=== PATIENT | male | born 1970 | race Caucasian/White ===

== ENCOUNTER 2022-03-24 16:30 | Emergency (ER) | payer OTHER ==
--- OUTSIDE RECORDS SUMMARY | 2022-03-24 16:43 | XMS REPORT | Continuity of Care Document ---
:1970 Author Organization [facility] t Address [address] [place] [address] Care Team Providers Name Role Phone GABBY EDWARDS Primary Care Physician Unavailable Liseth Haney Attending Clinician Unavailable INESSA PEREZ Attending Clinician Unavailable LOIS ASHRAF Attending Clinician Unavailable JANET PRESTON Attending Clinician Unavailable Doctor Unassigned, [facility] [employer] [facility] Attending Clinician Unavailable RICARDO INFANTE Attending Clinician Unavailable LISETH HANEY Attending Clinician Unavailable JOHAN Attending Clinician Unavailable Carl Moss Attending Clinician Unavailable Gabby Burroughs RN Attending Clinician Jenn Childers Attending Clinician Tres Angelo DO Attending Clinician DEBRA LOUIE Hernandez Attending Clinician Unavailable Debra PURDY, Louie Hernandez Attending Clinician Suma ASHRAF, Krupa Attending Clinician Unavailable [place] MORRELL, Natalee Calvert Attending Clinician Unavailable Yola Montanez Attending Clinician Ritchie Pickard MD Attending Clinician Tam Nelson MD Attending Clinician TAM NELSON Attending Clinician Unavailable INESSA PEREZ Admitting Clinician Unavailable RICARDO INFANTE Admitting Clinician Unavailable KAYLEE_T Admitting Clinician Unavailable Ritchie Pickard MD Admitting Clinician RITCHIE PICKARD JR Admitting Clinician Unavailable Payers Payer Name Policy Type Policy Number Effective Date Expiration Date S genesis [facility] [id number] [facility] [id number] 2020 HEALTHCARE 00:00:00 [facility] [id number] [facility] [id number] 2017 [facility]PITAL 00:00:00 Problems Condition Condition Condition Status Onset Resolution Last Treating Co mments Source Name Details Category Date Date Treatment Clinician Date DKA DKA Disease Active 2019-04 [facility] (diabetic (diabetic 1-29 ity [place] 00 Medical [facility] Toe Toe Disease Active [facility] osteomyeli osteomyeli 1-04 it [place] Toe Toe Disease Active [facility] osteomyeli osteomyeli 1-04 it y [place] t[place], left [place], [place] Osteomyeli Osteomyeli Disease Active U nivers tis of tis of 1-02 ity of [place]at[place] Morbid Morbid Disease Active 2016-04 [facility] obesity obesity 2-31 [place] mass index mass index 00 Me dical of of Branch 40.0-49.9 40.0-49.9 Osteomyeli Osteomyeli Disease Active 2016-04 U nivers tis tis 2-31 ity of 00:00: [place] 00 Medical Branch Morbid Morbid Disease Active 2016-04 [facility] obesity obesity 2-31 [place] mass [place] mass index 00 Me dical of of Branch 40.0-49.9 40.0-49.9 Allergies, Adverse Reactions, Alerts Allergy Allergy Status Severity Reaction(s) Onset Inactive Treating Comm ents Source Name Type Date Date Clinician NO KNOWN Drug Active Univers ALLERGIE Class ity of S [facility] Social History Social Habit Start Date Stop Date Quantity Comments Source Exposure to Not sure [facility] SARS-CoV-2 [facility] (event) Branch Alcohol intake 2020-03-13 2020-03-13 Current University of 00:00:00 00:00:00 non-drinker of [facility] alcohol (finding) Branch History SDOH 2020-03-02 2020-03-02 5 University o f Financial 00:00:00 00:00:00 [facility] Tobacco use and 2017-04-03 2017-04-03 Smokeless tobacco Un iversity of exposure 00:00:00 00:00:00 non-user [facility] Sex [birth year] At [birth year] Universit y of 00:00:00 00:00:00 [facility] Smoking Status Start Date Stop Date Source Never smoked tobacco [facility] Medications Ordered Filled Start Stop Current Ordering Indication Dosage Frequency Signature Comments Components Source Medication Medication Date Date Medication? Clinician (SIG) Name Name traMADoL 50 2019-04- No 4647 50mg Take 1 Uni vers mg tablet 2-18 03- tablet by ity of 00:00: 05:59 mouth [place] 00 :00 every 6 Medical (six) Branch hours as needed for Pain (scale 7-10) for up to 7 days. Indication s: acute pain traMADoL 50 2019-04- No 4647 50mg Take 1 Uni vers mg tablet 2-15 12-23 tablet by ity of 00:00: 05:59 mouth [place] 00 :00 every 6 Medical (six) Branch hours as needed for Pain (scale 7-10) for up to 7 days. Indication s: acute pain traMADoL 50 2019-04- No 4647 50mg Take 1 Uni vers mg tablet 2-15 12-23 tablet by ity of 00:00: 05:59 mouth [place] 00 :00 every 6 Medical (six) Branch hours as needed for Pain (scale 7-10) for up to 7 days. Indication s: acute pain traMADoL 50 2019-04- No 4647 50mg Take 1 Uni vers mg tablet 05-19- tablet by ity of 00:00: 05:59 mouth [place] 00 :00 every 6 Medical (six) Branch hours as needed for Pain (scale 7-10) for up to 7 days. Indication s: acute pain traMADoL 50 2019-04- No 4647 50mg Take 1 Uni vers mg tablet 203-26 tablet by ity of 00:00: 05:59 mouth [place] 00 :00 every 6 Medical (six) Branch hours as needed for Pain (scale 7-10) for up to 7 days. Indication s: acute pain traMADoL 50 2019-04 No 4647 50mg Take 1 Uni vers mg tablet 05-19 tablet by ity of 00:00: 05:59 mouth [place] 00 :00 every 6 Medical (six) Branch hours as needed for Pain (scale 7-10) for up to 7 days. Indication s: acute pain insulin 2019-04 Yes 28U 28 Units, Unive rs glargine 2-12 Subcutaneo ity o f (LANTUS 02:00: us, BID, [place] U-100) 00 First dose Medical injection (after Branch 28 Units last modificati on) on Tue03/14/20 at 2000, Until Discontinu ed, Routine multivitami 2019-04 2020- No 1{capsu Take 1 Univers n capsule 2-11 12- le} capsule by ity of 20:03: 00:00 mouth [place] 10 :00 daily. Medical Branch Sliding 2019-04 Yes Subcutaneo Univ ers Scale 2-11 us, TID ity of Insulin - 18:45: MEALS+HS, Adriano as Lispro 00 First dose Medical (HumaLOG) + (after Branch Fsbg last Testing modificati on) on Tue03/14/20 at 1245, Until Discontinu ed, Routine insulin 2019-04 Yes 18U 18 Units, Unive rs lispro 2-11 Subcutaneo ity of (human) 18:45: us, TID [place] (HumaLOG 00 MEALS, Medical U-100) First dose Branch injection (after 18 Units last modificati on) on Tue03/14/20 at 1245, Until Discontinu ed, Routine insulin 2019- 2020- No 38U 38 Units, Univ ers glargine 2-11 12-11 Subcutaneo ity of (LANTUS 02:00: 18:33 us, BID, [place] U-100) 00 :40 First dose Medical injection (after Branch 38 Units last modificati on) on Catherine 03/13/20 at 2000, Until Discontinu ed, Routine amLODIPine 2019- Yes [id number] 5mg Take 1 Univers 5 mg tablet 2-11 tablet by ity of 00:00: mouth [place] 00 daily. Medical Branch vitamin b 2019- Yes [id number] 1{tbl} Take 1 Univers complex-vit 2-11 tablet by ity of meneses 00:00: mouth [place] c-folic 00 daily. Medical acid 0.8 mg Branch tablet pantoprazol 2019- Yes [id number] 40mg Take 1 Univers e 40 mg EC 2-11 tablet by ity of tablet 00:00: mouth [place] 00 daily. Medical Branch sennosides- 2019-04 Yes [id number] 1{tbl} Take 1 Univers docusate 2-11 tablet by ity of sodium 00:00: mouth 2 [place] 8.6-50 mg 00 (two) Medical per tablet times Branch daily. insulin 2019- Yes [id number] Use as Uni vers syringe-nee 2-11 directed ity of dle U-100 1 00:00: [place] ml (INSULIN 00 Medical SYRINGE) 1 Branch mL 29 gauge x 1/2" Syrg insulin 2019- Yes [id number] 28U inject 28 [facility] glargine 2-11 Units ity of 100 unit/mL 00:00: [place] the [place] injection 00 skin 2 Medical (two) Branch times daily. insulin 2019- Yes [id number] 18U inject 18 Univers lispro, 2-11 Units ity of human, 100 00:00: under the [place] unit/mL 00 skin 3 Medical injection (three) Branch times daily with meals. furosemide 2019- Yes [id number] 80mg Take 1 Univers 80 mg 2-11 tablet by ity of tablet 00:00: mouth [place] 00 every Medical morning Branch and evening. blood sugar 2019- Yes [id number] Use as Univers diagnostic 2-11 directed ity o f (CONTOUR 00:00: [place] NEXT TEST 00 Medical STRIPS) Branch strip amLODIPine 2019-04 Yes [id number] 5mg Take 1 Univers 5 mg tablet 2-11 tablet by ity of 00:00: mouth [place] 00 daily. Medical Branch vitamin b 2019-04 Yes [id number] 1{tbl} Take 1 Univers complex-vit 2-11 tablet by ity of meneses 00:00: mouth [place] c-folic 00 daily. Medical acid 0.8 mg Branch tablet pantoprazol 2019-04 Yes [id number] 40mg Take 1 Univers e 40 mg EC 2-11 tablet by ity of tablet 00:00: mouth [place] 00 daily. Medical Branch sennosides- 2019-04 Yes [id number] 1{tbl} Take 1 Univers docusate 2-11 tablet by ity of sodium 00:00: mouth 2 [place] 8.6-50 mg 00 (two) Medical per tablet times Branch daily. insulin 2019-04 Yes [id number] Use as Uni vers syringe-nee 2-11 directed ity of dle U-100 1 00:00: [place] ml (INSULIN 00 Medical SYRINGE) 1 Branch mL 29 gauge x 1/2" Syrg insulin 2019- Yes [id number] 28U inject 28 Univers glargine 2-11 Units ity of 100 unit/mL 00:00: under the [place] injection 00 skin 2 Medical (two) Branch times daily. insulin 2019-04 Yes [id number] 18U inject 18 Univers lispro, 2-11 Units ity of human, 100 00:00: [place] the [place] unit/mL 00 skin 3 Medical injection (three) Branch times daily with meals. furosemide 2019-04 Yes [id number] 80mg Take 1 Univers 80 mg 2-11 tablet by ity of tablet 00:00: mouth [place] 00 every Medical morning Branch and evening. blood sugar 2019-04 Yes [id number] Use as Univers diagnostic 2-11 directed ity o f (CONTOUR 00:00: [place] NEXT TEST 00 Medical STRIPS) Branch strip amLODIPine 2019-04 Yes [id number] 5mg Take 1 Univers 5 mg tablet 2-11 tablet by ity of 00:00: mouth [place] 00 daily. Medical Branch vitamin b 2019-04 Yes [id number] 1{tbl} Take 1 Univers complex-vit 2-11 tablet by ity of meneses 00:00: mouth [place] c-folic 00 daily. Medical acid 0.8 mg Branch tablet pantoprazol 2019-04 Yes [id number] 40mg Take 1 Univers e 40 mg EC 2-11 tablet by ity of tablet 00:00: mouth [place] 00 daily. Medical Branch sennosides- 2019-04 Yes [id number] 1{tbl} Take 1 Univers docusate 2-11 tablet by ity of sodium 00:00: mouth 2 [place] 8.6-50 mg 00 (two) Medical per tablet times Branch daily. insulin 2019-04 Yes [id number] Use as Uni vers syringe-nee 2-11 directed ity of dle U-100 1 00:00: [place] ml (INSULIN 00 Medical SYRINGE) 1 Branch mL 29 gauge x 1/2" Syrg insulin 2019-04 Yes [id number] 28U inject 28 [facility] glargine 2-11 Units ity of 100 unit/mL 00:00: under the [place] injection 00 skin 2 Medical (two) Branch times daily. insulin 2019-04 Yes [id number] 18U inject 18 Univers lispro, 2-11 Units ity of human, 100 00:00: under the [place] unit/mL 00 skin 3 Medical injection (three) Branch times daily with meals. furosemide 2019-04 Yes [id number] 80mg Take 1 Univers 80 mg 2-11 tablet by ity of tablet 00:00: mouth [place] 00 every Medical morning Branch and evening. blood sugar 2019-04 Yes [id number] Use as Univers diagnostic 2-11 directed ity o f (CONTOUR 00:00: [place] NEXT TEST 00 Medical STRIPS) Branch strip amLODIPine 2019-04 Yes [id number] 5mg Take 1 Univers 5 mg tablet 2-11 tablet by ity of 00:00: mouth [place] 00 daily. Medical Branch vitamin b 2019-04 Yes [id number] 1{tbl} Take 1 Univers complex-vit 2-11 tablet by ity of meneses 00:00: mouth [place] c-folic 00 daily. Medical acid 0.8 mg Branch tablet pantoprazol 2019-04 Yes [id number] 40mg Take 1 Univers e 40 mg EC 2-11 tablet by ity of tablet 00:00: mouth [place] 00 daily. Medical Branch sennosides- 2019-04 Yes [id number] 1{tbl} Take 1 Univers docusate 2-11 tablet by ity of sodium 00:00: mouth 2 [place] 8.6-50 mg 00 (two) Medical per tablet times Branch daily. insulin 2019-04 Yes [id number] Use as Uni vers syringe-nee 2-11 directed ity of dle U-100 1 00:00: [place] ml (INSULIN 00 Medical SYRINGE) 1 Branch mL 29 gauge x 1/2" Syrg insulin 2019-04 Yes [id number] 28U inject 28 Univers glargine 2-11 Units ity of 100 unit/mL 00:00: under the [place] injection 00 skin 2 Medical (two) Branch times daily. insulin 2019-04 Yes [id number] 18U inject 18 Univers lispro, 2-11 Units ity of human, 100 00:00: under the [place] unit/mL 00 skin 3 Medical injection (three) Branch times daily with meals. furosemide 2019-04 Yes [id number] 80mg Take 1 Univers 80 mg 2-11 tablet by ity of tablet 00:00: mouth [place] 00 every Medical morning Branch and evening. blood sugar 2019-04 Yes [id number] Use as Univers diagnostic 2-11 directed ity o f (CONTOUR 00:00: [place] NEXT TEST 00 Medical STRIPS) Branch strip amLODIPine 2019-04 Yes [id number] 5mg Take 1 Univers 5 mg tablet 2-11 tablet by ity of 00:00: mouth [place] 00 daily. Medical Branch vitamin b 2019-04 Yes [id number] 1{tbl} Take 1 Univers complex-vit 2-11 tablet by ity of meneses 00:00: mouth [place] c-folic 00 daily. Medical acid 0.8 mg Branch tablet pantoprazol 2019-04 Yes [id number] 40mg Take 1 Univers e 40 mg EC 2-11 tablet by ity of tablet 00:00: mouth [place] 00 daily. Medical Branch sennosides- 2019-04 Yes [id number] 1{tbl} Take 1 Univers docusate 2-11 tablet by ity of sodium 00:00: mouth 2 [place] 8.6-50 mg 00 (two) Medical per tablet times Branch daily. insulin 2019-04 Yes [id number] Use as Uni vers syringe-nee 2-11 directed ity of dle U-100 1 00:00: [place] ml (INSULIN 00 Medical SYRINGE) 1 Branch mL 29 gauge x 1/2" Syrg insulin 2019-04 Yes [id number] 28U inject 28 Univers glargine 2-11 Units ity of 100 unit/mL 00:00: under the [place] injection 00 skin 2 Medical (two) Branch times daily. insulin 2019-04 Yes [id number] 18U inject 18 Univers lispro, 2-11 Units ity of human, 100 00:00: under the [place] unit/mL 00 skin 3 Medical injection (three) Branch times daily with meals. furosemide 2019-04 Yes [id number] 80mg Take 1 Univers 80 mg 2-11 tablet by ity of tablet 00:00: mouth [place] 00 every Medical morning Branch and evening. blood sugar 2019-04 Yes [id number] Use as Univers diagnostic 2-11 directed ity o f (CONTOUR 00:00: [place] NEXT TEST 00 Medical STRIPS) Branch strip amLODIPine 2019-04 Yes [id number] 5mg Take 1 Univers 5 mg tablet 2-11 tablet by ity of 00:00: mouth [place] 00 daily. Medical Branch vitamin b 2019-04 Yes [id number] 1{tbl} Take 1 Univers complex-vit 2-11 tablet by ity of meneses 00:00: mouth [place] c-folic 00 daily. Medical acid 0.8 mg Branch tablet pantoprazol 2019-04 Yes [id number] 40mg Take 1 Univers e 40 mg EC 2-11 tablet by ity of tablet 00:00: mouth [place] 00 daily. Medical Branch sennosides- 2019-04 Yes [id number] 1{tbl} Take 1 Univers docusate 2-11 tablet by ity of sodium 00:00: mouth 2 [place] 8.6-50 mg 00 (two) Medical per tablet times Branch daily. insulin 2019-04 Yes [id number] Use as Uni vers syringe-nee 2-11 directed ity of dle U-100 1 00:00: [place] ml (INSULIN 00 Medical SYRINGE) 1 Branch mL 29 gauge x 1/2" Syrg insulin 2019-04 Yes [id number] 28U inject 28 Univers glargine 2-11 Units ity of 100 unit/mL 00:00: under the [place] injection 00 skin 2 Medical (two) Branch times daily. insulin 2019-04 Yes [id number] 18U inject 18 Univers lispro, 2-11 Units ity of human, 100 00:00: under the [place] unit/mL 00 skin 3 Medical injection (three) Branch times daily with meals. furosemide 2019-04 Yes [id number] 80mg Take 1 Univers 80 mg 2-11 tablet by ity of tablet 00:00: mouth [place] 00 every Medical morning Branch and evening. blood sugar 2019-04 Yes [id number] Use as Univers diagnostic 2-11 directed ity o f (CONTOUR 00:00: [place] NEXT TEST 00 Medical STRIPS) Branch strip amLODIPine 2019-04 Yes [id number] 5mg Take 1 Univers 5 mg tablet 2-11 tablet by ity of 00:00: mouth [place] 00 daily. Medical Branch vitamin b 2019-04 Yes [id number] 1{tbl} Take 1 Univers complex-vit 2-11 tablet by ity of meneses 00:00: mouth [place] c-folic 00 daily. Medical acid 0.8 mg Branch tablet pantoprazol 2019-04 Yes [id number] 40mg Take 1 Univers e 40 mg EC 2-11 tablet by ity of tablet 00:00: mouth [place] 00 daily. Medical Branch sennosides- 2019-04 Yes [id number] 1{tbl} Take 1 Univers docusate 2-11 tablet by ity of sodium 00:00: mouth 2 [place] 8.6-50 mg 00 (two) Medical per tablet times Branch daily. insulin 2019-04 Yes [id number] Use as Uni vers syringe-nee 2-11 directed ity of dle U-100 1 00:00: [place] ml (INSULIN 00 Medical SYRINGE) 1 Branch mL 29 gauge x 1/2" Syrg insulin 2019- Yes [id number] 28U inject 28 Univers glargine 2-11 Units ity of 100 unit/mL 00:00: under the [place] injection 00 skin 2 Medical (two) Branch times daily. insulin 2019- Yes [id number] 18U inject 18 Univers lispro, 2-11 Units ity of human, 100 00:00: under the [place] unit/mL 00 skin 3 Medical injection (three) Branch times daily with meals. furosemide 2019-04 Yes [id number] 80mg Take 1 Univers 80 mg 2-11 tablet by ity of tablet 00:00: mouth [place] 00 every Medical morning Branch and evening. blood sugar 2019-04 Yes [id number] Use as Univers diagnostic 2-11 directed ity o f (CONTOUR 00:00: [place] NEXT TEST 00 Medical STRIPS) Branch strip amLODIPine 2019-04 Yes [id number] 5mg Take 1 Univers 5 mg tablet 2-11 tablet by ity of 00:00: mouth [place] 00 daily. Medical Branch vitamin b 2019-04 Yes [id number] 1{tbl} Take 1 Univers complex-vit 2-11 tablet by ity of meneses 00:00: mouth [place] c-folic 00 daily. Medical acid 0.8 mg Branch tablet pantoprazol 2019-04 Yes [id number] 40mg Take 1 Univers e 40 mg EC 2-11 tablet by ity of tablet 00:00: mouth [place] 00 daily. Medical Branch sennosides- 2019-04 Yes [id number] 1{tbl} Take 1 Univers docusate 2-11 tablet by ity of sodium 00:00: mouth 2 [place] 8.6-50 mg 00 (two) Medical per tablet times Branch daily. insulin 2019-04 Yes [id number] Use as Uni vers syringe-nee 2-11 directed ity of dle U-100 1 00:00: [place] ml (INSULIN 00 Medical SYRINGE) 1 Branch mL 29 gauge x 1/2" Syrg insulin 2019- Yes [id number] 28U inject 28 Univers glargine 2-11 Units ity of 100 unit/mL 00:00: under the [place] injection 00 skin 2 Medical (two) Branch times daily. insulin 2019-04 Yes [id number] 18U inject 18 Univers lispro, 2-11 Units ity of human, 100 00:00: under the [place] unit/mL 00 skin 3 Medical injection (three) Branch times daily with meals. furosemide 2019-04 Yes [id number] 80mg Take 1 Univers 80 mg 2-11 tablet by ity of tablet 00:00: mouth [place] 00 every Medical morning Branch and evening. blood sugar 2019-04 Yes [id number] Use as Univers diagnostic 2-11 directed ity o f (CONTOUR 00:00: [place] NEXT TEST 00 Medical STRIPS) Branch strip amLODIPine 2019-04 Yes [id number] 5mg Take 1 Univers 5 mg tablet 2-11 tablet by ity of 00:00: mouth [place] 00 daily. Medical Branch vitamin b 2019-04 Yes [id number] 1{tbl} Take 1 Univers complex-vit 2-11 tablet by ity of meneses 00:00: mouth [place] c-folic 00 daily. Medical acid 0.8 mg Branch tablet pantoprazol 2019-04 Yes [id number] 40mg Take 1 Univers e 40 mg EC 2-11 tablet by ity of tablet 00:00: mouth [place] 00 daily. Medical Branch sennosides- 2019-04 Yes [id number] 1{tbl} Take 1 Univers docusate 2-11 tablet by ity of sodium 00:00: mouth 2 [place] 8.6-50 mg 00 (two) Medical per tablet times Branch daily. insulin 2019-04 Yes [id number] Use as Uni vers syringe-nee 2-11 directed ity of dle U-100 1 00:00: [place] ml (INSULIN 00 Medical SYRINGE) 1 Branch mL 29 gauge x 1/2" Syrg insulin 2019-04 Yes [id number] 28U inject 28 [facility] glargine 2-11 Units ity of 100 unit/mL 00:00: under the [place] injection 00 skin 2 Medical (two) Branch times daily. insulin 2019-04 Yes [id number] 18U inject 18 Univers lispro, 2-11 Units ity of human, 100 00:00: under the [place] unit/mL 00 skin 3 Medical injection (three) Branch times daily with meals. amLODIPine 2019-04 Yes [id number] 5mg Take 1 Univers 5 mg tablet 2-11 tablet by ity of 00:00: mouth [place] 00 daily. Medical Branch vitamin b 2019-04 Yes [id number] 1{tbl} Take 1 Univers complex-vit 2-11 tablet by ity of meneses 00:00: mouth [place] c-folic 00 daily. Medical acid 0.8 mg Branch tablet pantoprazol 2019-04 Yes [id number] 40mg Take 1 Univers e 40 mg EC 2-11 tablet by ity of tablet 00:00: mouth [place] 00 daily. Medical Branch sennosides- 2019-04 Yes [id number] 1{tbl} Take 1 Univers docusate 2-11 tablet by ity of sodium 00:00: mouth 2 [place] 8.6-50 mg 00 (two) Medical per tablet times Branch daily. insulin 2019-04 Yes [id number] Use as Uni vers syringe-nee 2-11 directed ity of dle U-100 1 00:00: [place] ml (INSULIN 00 Medical SYRINGE) 1 Branch mL 29 gauge x 1/2" Syrg insulin 2019- Yes [id number] 28U inject 28 Univers glargine 2-11 Units ity of 100 unit/mL 00:00: under the [place] injection 00 skin 2 Medical (two) Branch times daily. insulin 2019-04 Yes [id number] 18U inject 18 Univers lispro, 2-11 Units ity of human, 100 00:00: under the [place] unit/mL 00 skin 3 Medical injection (three) Branch times daily with meals. furosemide 2019-04 Yes [id number] 80mg Take 1 Univers 80 mg 2-11 tablet by ity of tablet 00:00: mouth [place] 00 every Medical morning Branch and evening. blood sugar 2019-04 Yes [id number] Use as Univers diagnostic 2-11 directed ity o f (CONTOUR 00:00: [place] NEXT TEST 00 Medical STRIPS) Branch strip furosemide 2019-04 Yes [id number] 80mg Take 1 Univers 80 mg 2-11 tablet by ity of tablet 00:00: mouth [place] 00 every Medical morning Branch and evening. amLODIPine 2019-04 Yes [id number] 5mg Take 1 Univers 5 mg tablet 2-11 tablet by ity of 00:00: mouth [place] 00 daily. Medical Branch vitamin b 2019-04 Yes [id number] 1{tbl} Take 1 Univers complex-vit 2-11 tablet by ity of meneses 00:00: mouth [place] c-folic 00 daily. Medical acid 0.8 mg Branch tablet pantoprazol 2019-04 Yes [id number] 40mg Take 1 Univers e 40 mg EC 2-11 tablet by ity of tablet 00:00: mouth [place] 00 daily. Medical Branch sennosides- 2019-04 Yes [id number] 1{tbl} Take 1 Univers docusate 2-11 tablet by ity of sodium 00:00: mouth 2 [place] 8.6-50 mg 00 (two) Medical per tablet times Branch daily. insulin 2019-04 Yes [id number] Use as Uni vers syringe-nee 2-11 directed ity of dle U-100 1 00:00: [place] ml (INSULIN 00 Medical SYRINGE) 1 Branch mL 29 gauge x 1/2" Syrg insulin 2019-04 Yes [id number] 28U inject 28 [facility] glargine 2-11 Units ity of 100 unit/mL 00:00: under the [place] injection 00 skin 2 Medical (two) Branch times daily. insulin 2019-04 Yes [id number] 18U inject 18 Univers lispro, 2-11 Units ity of human, 100 00:00: under the [place] unit/mL 00 skin 3 Medical injection (three) Branch times daily with meals. blood sugar 2019-04 Yes [id number] Use as Univers diagnostic 2-11 directed ity o f (CONTOUR 00:00: [place] NEXT TEST 00 Medical STRIPS) Branch strip furosemide 2019-04 Yes [id number] 80mg Take 1 Univers 80 mg 2-11 tablet by ity of tablet 00:00: mouth [place] 00 every Medical morning Branch and evening. blood sugar 2019-04 Yes [id number] Use as Univers diagnostic 2-11 directed ity o f (CONTOUR 00:00: [place] NEXT TEST 00 Medical STRIPS) Branch strip amLODIPine 2019-04 Yes [id number] 5mg Take 1 Univers 5 mg tablet 2-11 tablet by ity of 00:00: mouth [place] 00 daily. Medical Branch vitamin b 2019-04 Yes [id number] 1{tbl} Take 1 Univers complex-vit 2-11 tablet by ity of meneses 00:00: mouth [place] c-folic 00 daily. Medical acid 0.8 mg Branch tablet pantoprazol 2019-04 Yes [id number] 40mg Take 1 Univers e 40 mg EC 2-11 tablet by ity of tablet 00:00: mouth [place] 00 daily. Medical Branch sennosides- 2019-04 Yes [id number] 1{tbl} Take 1 Univers docusate 2-11 tablet by ity of sodium 00:00: mouth 2 [place] 8.6-50 mg 00 (two) Medical per tablet times Branch daily. insulin 2019-04 Yes [id number] Use as Uni vers syringe-nee 2-11 directed ity of dle U-100 1 00:00: [place] ml (INSULIN 00 Medical SYRINGE) 1 Branch mL 29 gauge x 1/2" Syrg insulin 2019- Yes [id number] 28U inject 28 Univers glargine 2-11 Units ity of 100 unit/mL 00:00: under the [place] injection 00 skin 2 Medical (two) Branch times daily. insulin 2019- Yes [id number] 18U inject 18 Univers lispro, 2-11 Units ity of human, 100 00:00: under the [place] unit/mL 00 skin 3 Medical injection (three) Branch times daily with meals. furosemide 2019-04 Yes [id number] 80mg Take 1 Univers 80 mg 2-11 tablet by ity of tablet 00:00: mouth [place] 00 every Medical morning Branch and evening. blood sugar 2019-04 Yes [id number] Use as Univers diagnostic 2-11 directed ity o f (CONTOUR 00:00: [place] NEXT TEST 00 Medical STRIPS) Branch strip amLODIPine 2019-04 Yes [id number] 5mg Take 1 Univers 5 mg tablet 2-11 tablet by ity of 00:00: mouth [place] 00 daily. Medical Branch vitamin b 2019-04 Yes [id number] 1{tbl} Take 1 Univers complex-vit 2-11 tablet by ity of meneses 00:00: mouth [place] c-folic 00 daily. Medical acid 0.8 mg Branch tablet pantoprazol 2019-04 Yes [id number] 40mg Take 1 [facility] e 40 mg EC 2-11 tablet by [facility] tablet 00:00: mouth [place] 00 daily. Medical Branch sennosides- 2019-04 Yes [id number] 1{tbl} Take 1 [facility] docusate 2-11 tablet by [facility] of sodium 00:00: mouth 2 [place] 8.6-50 mg 00 (two) Medical per tablet times Branch daily. insulin 2019-04 Yes [id number] Use as [facility] vers syringe-nee 2-11 directed [facility] of dle U-100 1 00:00: [place] ml (INSULIN 00 Medical SYRINGE) 1 Branch mL 29 gauge x 1/2" Syrg insulin 2019- Yes [id number] 28U inject 28 [facility] glargine 2-11 Units [facility] of 100 unit/mL 00:00: under the [place] injection 00 skin 2 Medical (two) Branch times daily. insulin 2019- Yes [id number] 18U inject 18 [facility] lispro, 2-11 Units [facility] of human, 100 00:00: under the [place] unit/mL 00 skin 3 Medical injection (three) Branch times daily with meals. furosemide 2019-04 Yes [id number] 80mg Take 1 [facility] 80 mg 2-11 tablet by [facility] of tablet 00:00: mouth [place] 00 every Medical morning Branch and evening. blood sugar 2019-04 Yes [id number] Use as [facility] diagnostic 2-11 directed ity o f (CONTOUR 00:00: [place] NEXT TEST 00 Medical STRIPS) Branch strip amLODIPine 2019-04 Yes [id number] 5mg Take 1 [facility] 5 mg tablet 2-11 tablet by [facility] of 00:00: mouth [place] 00 daily. Medical Branch vitamin b 2019-04 Yes [id number] 1{tbl} Take 1 [facility] complex-vit 2-11 tablet by [facility] meneses 00:00: mouth [place] c-folic 00 daily. Medical acid 0.8 mg Branch tablet pantoprazol 2019-04 Yes [id number] 40mg Take 1 [facility] e 40 mg EC 2-11 tablet by [facility] of tablet 00:00: mouth [place] 00 daily. Medical [facility] sennosides- 2019-04 Yes [id number] 1{tbl} Take 1 [facility] docusate 2-11 tablet by [facility] of sodium 00:00: mouth 2 [place] 8.6-50 mg 00 (two) Medical per tablet times Branch daily. insulin 2019-04 Yes [id number] Use as [facility] vers syringe-nee 2-11 directed it[facility] of dle U-100 1 00:00: [place] ml (INSULIN 00 Medical SYRINGE) 1 Branch mL 29 gauge x 1/2" Syrg insulin 2019-04 Yes [id number] 28U inject 28 [facility] glargine 2-11 Units [facility] of 100 unit/mL 00:00: under the [place] injection 00 skin 2 Medical (two) Branch times daily. insulin 2019-04 Yes [id number] 18U inject 18 [facility] lispro, 2-11 Units [facility] of human, 100 00:00: under the [place] unit/mL 00 skin 3 Medical injection (three) Branch times daily with meals. furosemide 2019-04 Yes [id number] 80mg Take 1 [facility] 80 mg 2-11 tablet by [facility] of tablet 00:00: mouth [place] 00 every Medical morning Branch and evening. blood sugar 2019-04 Yes [id number] Use as [facility] diagnostic 2-11 directed [facility] o f (CONTOUR 00:00: [place] NEXT TEST 00 Medical STRIPS) Branch strip amLODIPine 2019-04 Yes [id number] 5mg Take 1 [facility] 5 mg tablet 2-11 tablet by [facility] of 00:00: mouth [place] 00 daily. Medical Branch vitamin b 2019-04 Yes [id number] 1{tbl} Take 1 [facility] complex-vit 2-11 tablet by [facility]es 00:00: mouth [place] c-folic 00 daily. Medical acid 0.8 mg Branch tablet pantoprazol 2019-04 Yes [id number] 40mg Take 1 [facility] e 40 mg EC 2-11 tablet by [facility] of tablet 00:00: mouth [place] 00 daily. Medical [facility] sennosides- 2019-04 Yes [id number] 1{tbl} Take 1 [facility] docusate 2-11 tablet by [facility] of sodium 00:00: mouth 2 [place] 8.6-50 mg 00 (two) Medical per tablet times Branch daily. insulin 2019-04 Yes [id number] Use as [facility] vers syringe-nee 2-11 directed it[facility] of dle U-100 1 00:00: [place] ml (INSULIN 00 Medical SYRINGE) 1 Branch mL 29 gauge x 1/2" Syrg insulin 2019-04 Yes [id number] 28U inject 28 [facility] glargine 2-11 Units [facility] of 100 unit/mL 00:00: under the [place] injection 00 skin 2 Medical (two) Branch times daily. insulin 2019-04 Yes [id number] 18U inject 18 [facility] lispro, 2-11 Units [facility] of human, 100 00:00: under the [place] unit/mL 00 skin 3 Medical injection (three) Branch times daily with meals. furosemide 2019-04 Yes [id number] 80mg Take 1 [facility] 80 mg 2-11 tablet by [facility] of tablet 00:00: mouth [place] 00 every Medical morning Branch and evening. blood sugar 2019-04 Yes [id number] Use as [facility] diagnostic 2-11 directed [facility] o f (CONTOUR 00:00: [place] NEXT TEST 00 Medical STRIPS) Branch strip amLODIPine 2019-04 Yes [id number] 5mg Take 1 [facility] 5 mg tablet 2-11 tablet by [facility] of 00:00: mouth [place] 00 daily. Medical Branch vitamin b 2019- Yes [id number] 1{tbl} Take 1 [facility] complex-vit 2-11 tablet by [facility] meneses 00:00: mouth [place] c-folic 00 daily. Medical acid 0.8 mg Branch tablet pantoprazol 2019-04 Yes [id number] 40mg Take 1 [facility] e 40 mg EC 2-11 tablet by [facility] of tablet 00:00: mouth [place] 00 daily. Medical [facility] sennosides- 2019-04 Yes [id number] 1{tbl} Take 1 [facility] docusate 2-11 tablet by [facility] of sodium 00:00: mouth 2 [place] 8.6-50 mg 00 (two) Medical per tablet times Branch daily. insulin 2019-04 Yes [id number] Use as [facility] vers syringe-nee 2-11 directed [facility] of dle U-100 1 00:00: [place] ml (INSULIN 00 Medical SYRINGE) 1 Branch mL 29 gauge x 1/2" Syrg insulin 2019-04 Yes [id number] 28U inject 28 [facility] glargine 2-11 Units [facility] of 100 unit/mL 00:00: under the [place] injection 00 skin 2 Medical (two) Branch times daily. insulin 2019-04 Yes [id number] 18U inject 18 [facility] lispro, 2-11 Units [facility] of human, 100 00:00: under the [place] unit/mL 00 skin 3 Medical injection (three) Branch times daily with meals. furosemide 2019-04 Yes [id number] 80mg Take 1 [facility] 80 mg 2-11 tablet by [facility] of tablet 00:00: mouth [place] 00 every Medical morning Branch and evening. blood sugar 2019-04 Yes [id number] Use as [facility] diagnostic 2-11 directed [facility] o f (CONTOUR 00:00: [place] NEXT TEST 00 Medical STRIPS) Branch strip amLODIPine 2019-04 Yes [id number] 5mg Take 1 [facility] 5 mg tablet 2-11 tablet by [facility] of 00:00: mouth [place] 00 daily. Medical Branch vitamin b 2019-04 Yes [id number] 1{tbl} Take 1 [facility] complex-vit 2-11 tablet by [facility] meneses 00:00: mouth [place] c-folic 00 daily. Medical acid 0.8 mg Branch tablet pantoprazol 2019-04 Yes [id number] 40mg Take 1 [facility] e 40 mg EC 2-11 tablet by [facility] of tablet 00:00: mouth [place] 00 daily. Medical Branch sennosides- 2019-04 Yes [id number] 1{tbl} Take 1 [facility] docusate 2-11 tablet by [facility] of sodium 00:00: mouth 2 [place] 8.6-50 mg 00 (two) Medical per tablet times Branch daily. insulin 2019-04 Yes [id number] Use as [facility] vers syringe-nee 2-11 directed [facility] of dle U-100 1 00:00: [place] ml (INSULIN 00 Medical SYRINGE) 1 Branch mL 29 gauge x 1/2" Syrg insulin 2019- Yes [id number] 28U inject 28 [facility] glargine 2-11 Units [facility] of 100 unit/mL 00:00: under the [place] injection 00 skin 2 Medical (two) Branch times daily. insulin 2019-04 Yes [id number] 18U inject 18 [facility] lispro, 2-11 Units [facility] of human, 100 00:00: under the [place] unit/mL 00 skin 3 Medical injection (three) Branch times daily with meals. furosemide 2019-04 Yes [id number] 80mg Take 1 [facility] 80 mg 2-11 tablet by [facility] of tablet 00:00: mouth [place] 00 every Medical morning Branch and evening. blood sugar 2019-04 Yes [id number] Use as [facility] diagnostic 2-11 directed [facility] o f (CONTOUR 00:00: [place] NEXT TEST 00 Medical STRIPS) Branch strip amLODIPine 2019-04 Yes [id number] 5mg Take 1 [facility] 5 mg tablet 2-11 tablet by [facility] of 00:00: mouth [place] 00 daily. Medical Branch vitamin b 2019-04 Yes [id number] 1{tbl} Take 1 [facility] complex-vit 2-11 tablet by [facility]eses 00:00: mouth [place] c-folic 00 daily. Medical acid 0.8 mg Branch tablet pantoprazol 2019-04 Yes [id number] 40mg Take 1 [facility] e 40 mg EC 2-11 tablet by [facility] of tablet 00:00: mouth [place] 00 daily. Medical Branch sennosides- 2019-04 Yes [id number] 1{tbl} Take 1 [facility] docusate 2-11 tablet by [facility] of sodium 00:00: mouth 2 [place] 8.6-50 mg 00 (two) Medical per tablet times Branch daily. insulin 2019-04 Yes [id number] Use as [facility] vers syringe-nee 2-11 directed [facility] of dle U-100 1 00:00: [place] ml (INSULIN 00 Medical SYRINGE) 1 Branch mL 29 gauge x 1/2" Syrg insulin 2019-04 Yes [id number] 28U inject 28 [facility] glargine 2-11 Units [facility] of 100 unit/mL 00:00: under the [place] injection 00 skin 2 Medical (two) Branch times daily. insulin 2019-04 Yes [id number] 18U inject 18 [facility] lispro, 2-11 Units [facility] of human, 100 00:00: under the [place] unit/mL 00 skin 3 Medical injection (three) Branch times daily with meals. furosemide 2019-04 Yes [id number] 80mg Take 1 [facility] 80 mg 2-11 tablet by [facility] of tablet 00:00: mouth [place] 00 every Medical morning Branch and evening. blood sugar 2019-04 Yes [id number] Use as [facility] diagnostic 2-11 directed [facility] o f (CONTOUR 00:00: [place] NEXT TEST 00 Medical STRIPS) Branch strip amLODIPine 2019-04 Yes [id number] 5mg Take 1 [facility] 5 mg tablet 2-11 tablet by [facility] of 00:00: mouth [place] 00 daily. Medical Branch vitamin b 2019-04 Yes [id number] 1{tbl} Take 1 [facility] complex-vit 2-11 tablet by [facility] meneses 00:00: mouth [place] c-folic 00 daily. Medical acid 0.8 mg Branch tablet pantoprazol 2019-04 Yes [id number] 40mg Take 1 [facility] e 40 mg EC 2-11 tablet by [facility] of tablet 00:00: mouth [place] 00 daily. Medical Branch sennosides- 2019-04 Yes [id number] 1{tbl} Take 1 [facility] docusate 2-11 tablet by [facility] of sodium 00:00: mouth 2 [place] 8.6-50 mg 00 (two) Medical per tablet times Branch daily. insulin 2019-04 Yes [id number] Use as [facility] vers syringe-nee 2-11 directed ity of dle U-100 1 00:00: [place] ml (INSULIN 00 Medical SYRINGE) 1 Branch mL 29 gauge x 1/2" Syrg insulin 2019- Yes [id number] 28U inject 28 [facility] glargine 2-11 Units [facility] of 100 unit/mL 00:00: under the [place] injection 00 skin 2 Medical (two) Branch times daily. insulin 2019-04 Yes [id number] 18U inject 18 [facility] lispro, 2-11 Units [facility] of human, 100 00:00: under the [place] unit/mL 00 skin 3 Medical injection (three) Branch times daily with meals. furosemide 2019-04 Yes [id number] 80mg Take 1 [facility] 80 mg 2-11 tablet by [facility] of tablet 00:00: mouth [place] 00 every Medical morning Branch and evening. blood sugar 2019-04 Yes [id number] Use as [facility] diagnostic 2-11 directed it[facility] o f (CONTOUR 00:00: [place] NEXT TEST 00 Medical STRIPS) Branch strip amLODIPine 2019-04 Yes [id number] 5mg Take 1 [facility] 5 mg tablet 2-11 tablet by it[facility] of 00:00: mouth [place] 00 daily. Medical Branch vitamin b 2019-04 Yes [id number] 1{tbl} Take 1 [facility] complex-vit 2-11 tablet by [facility] of meneses 00:00: mouth [place] c-folic 00 daily. Medical acid 0.8 mg Branch tablet pantoprazol 2019-04 Yes [id number] 40mg Take 1 [facility] e 40 mg EC 2-11 tablet by [facility] of tablet 00:00: mouth [place] 00 daily. Medical Branch sennosides- 2019-04 Yes [id number] 1{tbl} Take 1 [facility] docusate 2-11 tablet by [facility] of sodium 00:00: mouth 2 [place] 8.6-50 mg 00 (two) Medical per tablet times Branch daily. insulin 2019-04 Yes [id number] Use as [facility] vers syringe-nee 2-11 directed ity of dle U-100 1 00:00: [place] ml (INSULIN 00 Medical SYRINGE) 1 Branch mL 29 gauge x 1/2" Syrg insulin 2019-04 Yes [id number] 28U inject 28 [facility] glargine 2-11 Units [facility] of 100 unit/mL 00:00: under the [place] injection 00 skin 2 Medical (two) Branch times daily. insulin 2019-04 Yes [id number] 18U inject 18 [facility] lispro, 2-11 Units [facility] of human, 100 00:00: under the [place] unit/mL 00 skin 3 Medical injection (three) Branch times daily with meals. furosemide 2019-04 Yes [id number] 80mg Take 1 [facility] 80 mg 2-11 tablet by [facility] of tablet 00:00: mouth [place] 00 every Medical morning Branch and evening. blood sugar 2019-04 Yes [id number] Use as [facility] diagnostic 2-11 directed it[facility] o f (CONTOUR 00:00: [place] NEXT TEST 00 Medical STRIPS) Branch strip amLODIPine 2019-04 Yes [id number] 5mg Take 1 [facility] 5 mg tablet 2-11 tablet by it[facility] of 00:00: mouth [place] 00 daily. Medical Branch vitamin b 2019-04 Yes [id number] 1{tbl} Take 1 [facility] complex-vit 2-11 tablet by [facility] of meneses 00:00: mouth [place] c-folic 00 daily. Medical acid 0.8 mg Branch tablet pantoprazol 2019- Yes [id number] 40mg Take 1 [facility] e 40 mg EC 2-11 tablet by [facility] of tablet 00:00: mouth [place] 00 daily. Medical Branch sennosides- 2019-04 Yes [id number] 1{tbl} Take 1 [facility] docusate 2-11 tablet by [facility] of sodium 00:00: mouth 2 [place] 8.6-50 mg 00 (two) Medical per tablet times Branch daily. insulin 2019- Yes [id number] Use as [facility] vers syringe-nee 2-11 directed ity of dle U-100 1 00:00: [place] ml (INSULIN 00 Medical SYRINGE) 1 Branch mL 29 gauge x 1/2" Syrg insulin 2019- Yes [id number] 28U inject 28 [facility] glargine 2-11 Units [facility] of 100 unit/mL 00:00: under the [place] injection 00 skin 2 Medical (two) Branch times daily. insulin 2019-04 Yes [id number] 18U inject 18 [facility] lispro, 2-11 Units it[facility] of human, 100 00:00: under the [place] unit/mL 00 skin 3 Medical injection (three) Branch times daily with meals. furosemide 2019-04 Yes [id number] 80mg Take 1 [facility] 80 mg 2-11 tablet by [facility] of tablet 00:00: mouth [place] 00 every Medical morning Branch and evening. blood sugar 2019-04 Yes [id number] Use as [facility] diagnostic 2-11 directed ity o f (CONTOUR 00:00: [place] NEXT TEST 00 Medical STRIPS) Branch strip amLODIPine 2019- Yes [id number] 5mg Take 1 [facility] 5 mg tablet 2-11 tablet by ity of 00:00: mouth [place] 00 daily. Medical Branch vitamin b 2019- Yes [id number] 1{tbl} Take 1 [facility] complex-vit 2-11 tablet by [facility] of meneses 00:00: mouth [place] c-folic 00 daily. Medical acid 0.8 mg Branch tablet pantoprazol 2019- Yes [id number] 40mg Take 1 [facility] e 40 mg EC 2-11 tablet by [facility] of tablet 00:00: mouth [place] 00 daily. Medical Branch sennosides- 2019-04 Yes [id number] 1{tbl} Take 1 [facility] docusate 2-11 tablet by [facility]y of sodium 00:00: mouth 2 [place] 8.6-50 mg 00 (two) Medical per tablet times Branch daily. insulin 2019-04 Yes [id number] Use as [facility] vers syringe-nee 2-11 directed ity of dle U-100 1 00:00: [place] ml (INSULIN 00 Medical SYRINGE) 1 Branch mL 29 gauge x 1/2" Syrg insulin 2019-04 Yes [id number] 28U inject 28 [facility] glargine 2-11 Units it[facility] of 100 unit/mL 00:00: under the [place] injection 00 skin 2 Medical (two) Branch times daily. insulin 2019-04 Yes [id number] 18U inject 18 [facility] lispro, 2-11 Units it[facility] of human, 100 00:00: under the [place] unit/mL 00 skin 3 Medical injection (three) Branch times daily with meals. furosemide 2019-04 Yes [id number] 80mg Take 1 [facility] 80 mg 2-11 tablet by [facility] of tablet 00:00: mouth [place] 00 every Medical morning Branch and evening. blood sugar 2019-04 Yes [id number] Use as [facility] diagnostic 2-11 directed ity o f (CONTOUR 00:00: [place] NEXT TEST 00 Medical STRIPS) Branch strip amLODIPine 2019-04 Yes [id number] 5mg Take 1 [facility] 5 mg tablet 2-11 tablet by ity of 00:00: mouth [place] 00 daily. Medical Branch vitamin b 2019-04 Yes [id number] 1{tbl} Take 1 [facility] complex-vit 2-11 tablet by [facility] of meneses 00:00: mouth [place] c-folic 00 daily. Medical acid 0.8 mg Branch tablet pantoprazol 2019-04 Yes [id number] 40mg Take 1 [facility] e 40 mg EC 2-11 tablet by [facility] of tablet 00:00: mouth [place] 00 daily. Medical Branch sennosides- 2019-04 Yes [id number] 1{tbl} Take 1 [facility] docusate 2-11 tablet by ity of sodium 00:00: mouth 2 [place] 8.6-50 mg 00 (two) Medical per tablet times Branch daily. insulin 2019-04 Yes [id number] Use as [facility] vers syringe-nee 2-11 directed ity of dle U-100 1 00:00: [place] ml (INSULIN 00 Medical SYRINGE) 1 Branch mL 29 gauge x 1/2" Syrg insulin 2019- Yes [id number] 28U inject 28 [facility] glargine 2-11 Units ity of 100 unit/mL 00:00: under the [place] injection 00 skin 2 Medical (two) Branch times daily. insulin 2019-04 Yes [id number] 18U inject 18 [facility] lispro, 2-11 Units it[facility] of human, 100 00:00: under the [place] unit/mL 00 skin 3 Medical injection (three) Branch times daily with meals. furosemide 2019-04 Yes [id number] 80mg Take 1 [facility] 80 mg 2-11 tablet by [facility] of tablet 00:00: mouth [place] 00 every Medical morning Branch and evening. blood sugar 2019-04 Yes [id number] Use as [facility] diagnostic 2-11 directed ity o f (CONTOUR 00:00: [place] NEXT TEST 00 Medical STRIPS) Branch strip amLODIPine 2019-04 Yes [id number] 5mg Take 1 [facility] 5 mg tablet 2-11 tablet by ity of 00:00: mouth [place] 00 daily. Medical Branch vitamin b 2019-04 Yes [id number] 1{tbl} Take 1 [facility] complex-vit 2-11 tablet by [facility] of [facility]eses 00:00: mouth [place] c-folic 00 daily. Medical acid 0.8 mg Branch tablet pantoprazol 2019-04 Yes [id number] 40mg Take 1 [facility] e 40 mg EC 2-11 tablet by [facility] of tablet 00:00: mouth [place] 00 daily. Medical Branch sennosides- 2019-04 Yes [id number] 1{tbl} Take 1 [facility] docusate 2-11 tablet by [facility]y of sodium 00:00: mouth 2 [place] 8.6-50 mg 00 (two) Medical per tablet times Branch daily. insulin 2019-04 Yes [id number] Use as [facility] vers syringe-nee 2-11 directed ity of dle U-100 1 00:00: [place] ml (INSULIN 00 Medical SYRINGE) 1 Branch mL 29 gauge x 1/2" Syrg insulin 2019- Yes [id number] 28U inject 28 [facility] glargine 2-11 Units ity of 100 unit/mL 00:00: under the [place] injection 00 skin 2 Medical (two) Branch times daily. insulin 2019-04 Yes [id number] 18U inject 18 [facility] lispro, 2-11 Units it[facility] of human, 100 00:00: under the [place] unit/mL 00 skin 3 Medical injection (three) Branch times daily with meals. furosemide 2019-04 Yes [id number] 80mg Take 1 [facility] 80 mg 2-11 tablet by [facility] of tablet 00:00: mouth [place] 00 every Medical morning Branch and evening. blood sugar 2019-04 Yes [id number] Use as [facility] diagnostic 2-11 directed ity o f (CONTOUR 00:00: [place] NEXT TEST 00 Medical STRIPS) Branch strip amLODIPine 2019-04 Yes [id number] 5mg Take 1 [facility] 5 mg tablet 2-11 tablet by [facility]y of 00:00: mouth [place] 00 daily. Medical Branch vitamin b 2019-04 Yes [id number] 1{tbl} Take 1 [facility] complex-vit 2-11 tablet by [facility] of [facility]eses 00:00: mouth [place] c-folic 00 daily. Medical acid 0.8 mg Branch tablet pantoprazol 2019-04 Yes [id number] 40mg Take 1 [facility] e 40 mg EC 2-11 tablet by [facility] of tablet 00:00: mouth [place] 00 daily. Medical Branch sennosides- 2019-04 Yes [id number] 1{tbl} Take 1 [facility] docusate 2-11 tablet by [facility]y of sodium 00:00: mouth 2 [place] 8.6-50 mg 00 (two) Medical per tablet times Branch daily. insulin 2019-04 Yes [id number] Use as [facility] vers syringe-nee 2-11 directed ity of dle U-100 1 00:00: [place] ml (INSULIN 00 Medical SYRINGE) 1 Branch mL 29 gauge x 1/2" Syrg insulin 2019-04 Yes [id number] 28U inject 28 [facility] glargine 2-11 Units [facility]y of 100 unit/mL 00:00: under the [place] injection 00 skin 2 Medical (two) Branch times daily. insulin 2019-04 Yes [id number] 18U inject 18 [facility] lispro, 2-11 Units [facility] of human, 100 00:00: under the [place] unit/mL 00 skin 3 Medical injection (three) Branch times daily with meals. furosemide 2019-04 Yes [id number] 80mg Take 1 [facility] 80 mg 2-11 tablet by [facility] of tablet 00:00: mouth [place] 00 every Medical morning Branch and evening. blood sugar 2019-04 Yes [id number] Use as [facility] diagnostic 2-11 directed ity o f (CONTOUR 00:00: [place] NEXT TEST 00 Medical STRIPS) Branch strip amLODIPine 2019-04 Yes [id number] 5mg Take 1 [facility] 5 mg tablet 2-11 tablet by ity of 00:00: mouth [place] 00 daily. Medical Branch vitamin b 2019-04 Yes [id number] 1{tbl} Take 1 [facility] complex-vit 2-11 tablet by [facility] of [facility]es 00:00: mouth [place] c-folic 00 daily. Medical acid 0.8 mg Branch tablet pantoprazol 2019-04 Yes [id number] 40mg Take 1 [facility] e 40 mg EC 2-11 tablet by [facility] of tablet 00:00: mouth [place] 00 daily. Medical Branch sennosides- 2019-04 Yes [id number] 1{tbl} Take 1 [facility] docusate 2-11 tablet by [facility] of sodium 00:00: mouth 2 [place] 8.6-50 mg 00 (two) Medical per tablet times Branch daily. insulin 2019-04 Yes [id number] Use as [facility] vers syringe-nee 2-11 directed [facility]y of dle U-100 1 00:00: [place] ml (INSULIN 00 Medical SYRINGE) 1 Branch mL 29 gauge x 1/2" Syrg insulin 2019-04 Yes [id number] 28U inject 28 [facility] glargine 2-11 Units [facility] of 100 unit/mL 00:00: under the [place] injection 00 skin 2 Medical (two) Branch times daily. insulin 2019-04 Yes [id number] 18U inject 18 [facility] lispro, 2-11 Units it[facility] of human, 100 00:00: under the [place] unit/mL 00 skin 3 Medical injection (three) Branch times daily with meals. furosemide 2019-04 Yes [id number] 80mg Take 1 [facility] 80 mg 2-11 tablet by [facility] of tablet 00:00: mouth [place] 00 every Medical morning Branch and evening. blood sugar 2019-04 Yes [id number] Use as [facility] diagnostic 2-11 directed [facility]y o f (CONTOUR 00:00: [place] NEXT TEST 00 Medical STRIPS) Branch strip amLODIPine 2019-04 Yes [id number] 5mg Take 1 [facility] 5 mg tablet 2-11 tablet by [facility]y of 00:00: mouth [place] 00 daily. Medical Branch vitamin b 2019-04 Yes [id number] 1{tbl} Take 1 [facility] complex-vit 2-11 tablet by [facility] of [facility]eses 00:00: mouth [place] c-folic 00 daily. Medical acid 0.8 mg Branch tablet pantoprazol 2019- Yes [id number] 40mg Take 1 [facility] e 40 mg EC 2-11 tablet by [facility] of tablet 00:00: mouth [place] 00 daily. Medical Branch sennosides- 2019-04 Yes [id number] 1{tbl} Take 1 [facility] docusate 2-11 tablet by ity of sodium 00:00: mouth 2 [place] 8.6-50 mg 00 (two) Medical per tablet times Branch daily. insulin 2019- Yes [id number] Use as [facility] vers syringe-nee 2-11 directed ity of dle U-100 1 00:00: [place] ml (INSULIN 00 Medical SYRINGE) 1 Branch mL 29 gauge x 1/2" Syrg insulin 2019- Yes [id number] 28U inject 28 [facility] glargine 2-11 Units ity of 100 unit/mL 00:00: under the [place] injection 00 skin 2 Medical (two) Branch times daily. insulin 2019-04 Yes [id number] 18U inject 18 [facility] lispro, 2-11 Units ity of human, 100 00:00: under the [place] unit/mL 00 skin 3 Medical injection (three) Branch times daily with meals. furosemide 2019- Yes [id number] 80mg Take 1 [facility] 80 mg 2-11 tablet by [facility] of tablet 00:00: mouth [place] 00 every Medical morning Branch and evening. blood sugar 2019-04 Yes [id number] Use as [facility] diagnostic 2-11 directed ity o f (CONTOUR 00:00: [place] NEXT TEST 00 Medical STRIPS) Branch strip amLODIPine 2019-04 Yes [id number] 5mg Take 1 [facility] 5 mg tablet 2-11 tablet by [facility]y of 00:00: mouth [place] 00 daily. Medical Branch vitamin b 2019- Yes [id number] 1{tbl} Take 1 [facility] complex-vit 2-11 tablet by [facility] of [facility]eses 00:00: mouth [place] c-folic 00 daily. Medical acid 0.8 mg Branch tablet pantoprazol 2019-04 Yes [id number] 40mg Take 1 [facility] e 40 mg EC 2-11 tablet by [facility] of tablet 00:00: mouth [place] 00 daily. Medical Branch sennosides- 2019-04 Yes [id number] 1{tbl} Take 1 [facility] docusate 2-11 tablet by [facility]y of sodium 00:00: mouth 2 [place] 8.6-50 mg 00 (two) Medical per tablet times Branch daily. insulin 2019-04 Yes [id number] Use as [facility] vers syringe-nee 2-11 directed ity of dle U-100 1 00:00: [place] ml (INSULIN 00 Medical SYRINGE) 1 Branch mL 29 gauge x 1/2" Syrg insulin 2019-04 Yes [id number] 28U inject 28 [facility] glargine 2-11 Units ity of 100 unit/mL 00:00: under the [place] injection 00 skin 2 Medical (two) Branch times daily. insulin 2019-04 Yes [id number] 18U inject 18 [facility] lispro, 2-11 Units ity of human, 100 00:00: under the [place] unit/mL 00 skin 3 Medical injection (three) Branch times daily with meals. furosemide 2019-04 Yes [id number] 80mg Take 1 [facility] 80 mg 2-11 tablet by [facility] of tablet 00:00: mouth [place] 00 every Medical morning Branch and evening. blood sugar 2019-04 Yes [id number] Use as [facility] diagnostic 2-11 directed ity o f (CONTOUR 00:00: [place] NEXT TEST 00 Medical STRIPS) Branch strip amLODIPine 2019-04 Yes [id number] 5mg Take 1 [facility] 5 mg tablet 2-11 tablet by ity of 00:00: mouth [place] 00 daily. Medical Branch vitamin b 2019-04 Yes [id number] 1{tbl} Take 1 [facility] complex-vit 2-11 tablet by [facility] of [facility]eses 00:00: mouth [place] c-folic 00 daily. Medical acid 0.8 mg Branch tablet pantoprazol 2019-04 Yes [id number] 40mg Take 1 [facility] e 40 mg EC 2-11 tablet by [facility]y of tablet 00:00: mouth [place] 00 daily. Medical Branch sennosides- 2019- Yes [id number] 1{tbl} Take 1 [facility] docusate 2-11 tablet by [facility]y of sodium 00:00: mouth 2 [place] 8.6-50 mg 00 (two) Medical per tablet times Branch daily. insulin 2019-04 Yes [id number] Use as [facility] vers syringe-nee 2-11 directed ity of dle U-100 1 00:00: [place] ml (INSULIN 00 Medical SYRINGE) 1 Branch mL 29 gauge x 1/2" Syrg insulin 2019- Yes [id number] 28U inject 28 [facility] glargine 2-11 Units ity of 100 unit/mL 00:00: under the [place] injection 00 skin 2 Medical (two) Branch times daily. insulin 2019-04 Yes [id number] 18U inject 18 [facility] lispro, 2-11 Units ity of human, 100 00:00: under the [place] unit/mL 00 skin 3 Medical injection (three) Branch times daily with meals. furosemide 2019-04 Yes [id number] 80mg Take 1 [facility] 80 mg 2-11 tablet by [facility] of tablet 00:00: mouth [place] 00 every Medical morning Branch and evening. blood sugar 2019-04 Yes [id number] Use as [facility] diagnostic 2-11 directed ity o f (CONTOUR 00:00: [place] NEXT TEST 00 Medical STRIPS) Branch strip amLODIPine 2019-04 Yes [id number] 5mg Take 1 [facility] 5 mg tablet 2-11 tablet by [facility] of 00:00: mouth [place] 00 daily. Medical Branch vitamin b 2019-04 Yes [id number] 1{tbl} Take 1 [facility] complex-vit 2-11 tablet by [facility] 00:00: mouth [place] c-folic 00 daily. Medical acid 0.8 mg Branch tablet pantoprazol 2019-04 Yes [id number] 40mg Take 1 [facility] e 40 mg EC 2-11 tablet by [facility] of tablet 00:00: mouth [place] 00 daily. Medical Branch sennosides- 2019-04 Yes [id number] 1{tbl} Take 1 [facility] docusate 2-11 tablet by [facility] of sodium 00:00: mouth 2 [place] 8.6-50 mg 00 (two) Medical per tablet times Branch daily. insulin 2019-04 Yes [id number] Use as [facility] vers syringe-nee 2-11 directed [facility] of dle U-100 1 00:00: [place] ml (INSULIN 00 Medical SYRINGE) 1 Branch mL 29 gauge x 1/2" Syrg insulin 2019-04 Yes [id number] 28U inject 28 [facility] glargine 2-11 Units [facility] of 100 unit/mL 00:00: under the [place] injection 00 skin 2 Medical (two) Branch times daily. insulin 2019-04 Yes [id number] 18U inject 18 [facility] lispro, 2-11 Units [facility] of human, 100 00:00: under the [place] unit/mL 00 skin 3 Medical injection (three) Branch times daily with meals. furosemide 2019-04 Yes [id number] 80mg Take 1 [facility] 80 mg 2-11 tablet by [facility] of tablet 00:00: mouth [place] 00 every Medical morning Branch and evening. blood sugar 2019-04 Yes [id number] Use as [facility] diagnostic 2-11 directed ity o f (CONTOUR 00:00: [place] NEXT TEST 00 Medical STRIPS) Branch strip amLODIPine 2019-04 Yes [id number] 5mg Take 1 [facility] 5 mg tablet 2-11 tablet by [facility] of 00:00: mouth [place] 00 daily. Medical Branch vitamin b 2019-04 Yes [id number] 1{tbl} Take 1 [facility] complex-vit 2-11 tablet by [facility] 00:00: mouth [place] c-folic 00 daily. Medical acid 0.8 mg Branch tablet pantoprazol 2019-04 Yes [id number] 40mg Take 1 [facility] e 40 mg EC 2-11 tablet by [facility] of tablet 00:00: mouth [place] 00 daily. Medical Branch sennosides- 2019-04 Yes [id number] 1{tbl} Take 1 [facility] docusate 2-11 tablet by [facility] of sodium 00:00: mouth 2 [place] 8.6-50 mg 00 (two) Medical per tablet times Branch daily. insulin 2019-04 Yes [id number] Use as [facility] vers syringe-nee 2-11 directed ity of dle U-100 1 00:00: [place] ml (INSULIN 00 Medical SYRINGE) 1 Branch mL 29 gauge x 1/2" Syrg insulin 2019-04 Yes [id number] 28U inject 28 [facility] glargine 2-11 Units [facility] of 100 unit/mL 00:00: under the [place] injection 00 skin 2 Medical (two) Branch times daily. insulin 2019-04 Yes [id number] 18U inject 18 [facility] lispro, 2-11 Units [facility] of human, 100 00:00: under the [place] unit/mL 00 skin 3 Medical injection (three) Branch times daily with meals. furosemide 2019-04 Yes [id number] 80mg Take 1 [facility] 80 mg 2-11 tablet by [facility] of tablet 00:00: mouth [place] 00 every Medical morning Branch and evening. blood sugar 2019-04 Yes [id number] Use as [facility] diagnostic 2-11 directed it[facility] o f (CONTOUR 00:00: [place] NEXT TEST 00 Medical STRIPS) Branch strip amLODIPine 2019-04 Yes [id number] 5mg Take 1 [facility] 5 mg tablet 2-11 tablet by [facility] of 00:00: mouth [place] 00 daily. Medical Branch vitamin b 2019-04 Yes [id number] 1{tbl} Take 1 [facility] complex-vit 2-11 tablet by [facility] [place] 00:00: mouth [place] c-folic 00 daily. Medical acid 0.8 mg Branch tablet pantoprazol 2019-04 Yes [id number] 40mg Take 1 [facility] e 40 mg EC 2-11 tablet by [facility] of tablet 00:00: mouth [place] 00 daily. Medical Branch sennosides- 2019-04 Yes [id number] 1{tbl} Take 1 [facility] docusate 2-11 tablet by [facility] of sodium 00:00: mouth 2 [place] 8.6-50 mg 00 (two) Medical per tablet times Branch daily. insulin 2019-04 Yes [id number] Use as [facility] vers syringe-nee 2-11 directed ity of dle U-100 1 00:00: [place] ml (INSULIN 00 Medical SYRINGE) 1 Branch mL 29 gauge x 1/2" Syrg insulin 2019-04 Yes [id number] 28U inject 28 [facility] glargine 2-11 Units [facility] of 100 unit/mL 00:00: under the [place] injection 00 skin 2 Medical (two) Branch times daily. insulin 2019-04 Yes [id number] 18U inject 18 [facility] lispro, 2-11 Units [facility] of human, 100 00:00: under the [place] unit/mL 00 skin 3 Medical injection (three) Branch times daily with meals. furosemide 2019-04 Yes [id number] 80mg Take 1 [facility] 80 mg 2-11 tablet by [facility] of tablet 00:00: mouth [place] 00 every Medical morning Branch and evening. blood sugar 2019-04 Yes [id number] Use as [facility] diagnostic 2-11 directed it[facility] o f (CONTOUR 00:00: [place] NEXT TEST 00 Medical STRIPS) Branch strip amLODIPine 2019-04 Yes [id number] 5mg Take 1 [facility] 5 mg tablet 2-11 tablet by [facility] of 00:00: mouth [place] 00 daily. Medical Branch vitamin b 2019-04 Yes [id number] 1{tbl} Take 1 [facility] complex-vit 2-11 tablet by [facility] [place] 00:00: mouth [place] c-folic 00 daily. Medical acid 0.8 mg Branch tablet pantoprazol 2019- Yes [id number] 40mg Take 1 [facility] e 40 mg EC 2-11 tablet by [facility] of tablet 00:00: mouth [place] 00 daily. Medical Branch sennosides- 2019-04 Yes [id number] 1{tbl} Take 1 [facility] docusate 2-11 tablet by [facility] of sodium 00:00: mouth 2 [place] 8.6-50 mg 00 (two) Medical per tablet times Branch daily. insulin 2019-04 Yes [id number] Use as [facility] vers syringe-nee 2-11 directed ity of dle U-100 1 00:00: [place] ml (INSULIN 00 Medical SYRINGE) 1 Branch mL 29 gauge x 1/2" Syrg insulin 2019- Yes [id number] 28U inject 28 [facility] glargine 2-11 Units [facility] of 100 unit/mL 00:00: under the [place] injection 00 skin 2 Medical (two) Branch times daily. insulin 2019-04 Yes [id number] 18U inject 18 [facility] lispro, 2-11 Units [facility] of human, 100 00:00: under the [place] unit/mL 00 skin 3 Medical injection (three) Branch times daily with meals. furosemide 2019- Yes [id number] 80mg Take 1 [facility] 80 mg 2-11 tablet by [facility] of tablet 00:00: mouth [place] 00 every Medical morning Branch and evening. blood sugar 2019-04 Yes [id number] Use as [facility] diagnostic 2-11 directed it[facility] o f (CONTOUR 00:00: [place] NEXT TEST 00 Medical STRIPS) Branch strip amLODIPine 2019-04 Yes [id number] 5mg Take 1 [facility] 5 mg tablet 2-11 tablet by [facility] of 00:00: mouth [place] 00 daily. Medical Branch vitamin b 2019- Yes [id number] 1{tbl} Take 1 [facility] complex-vit 2-11 tablet by [facility] [place] 00:00: mouth [place] c-folic 00 daily. Medical acid 0.8 mg Branch tablet pantoprazol 2019-04 Yes [id number] 40mg Take 1 [facility] e 40 mg EC 2-11 tablet by [facility] of tablet 00:00: mouth [place] 00 daily. Medical Branch sennosides- 2019-04 Yes [id number] 1{tbl} Take 1 [facility] docusate 2-11 tablet by [facility] of sodium 00:00: mouth 2 [place] 8.6-50 mg 00 (two) Medical per tablet times Branch daily. insulin 2019-04 Yes [id number] Use as [facility] vers syringe-nee 2-11 directed ity of dle U-100 1 00:00: [place] ml (INSULIN 00 Medical SYRINGE) 1 Branch mL 29 gauge x 1/2" Syrg insulin 2019-04 Yes [id number] 28U inject 28 [facility] glargine 2-11 Units [facility] of 100 unit/mL 00:00: under the [place] injection 00 skin 2 Medical (two) Branch times daily. insulin 2019-04 Yes [id number] 18U inject 18 [facility] lispro, 2-11 Units [facility] of human, 100 00:00: under the [place] unit/mL 00 skin 3 Medical injection (three) Branch times daily with meals. furosemide 2019-04 Yes [id number] 80mg Take 1 [facility] 80 mg 2-11 tablet by [facility] of tablet 00:00: mouth [place] 00 every Medical morning Branch and evening. blood sugar 2019-04 Yes [id number] Use as [facility] diagnostic 2-11 directed it[facility] o f (CONTOUR 00:00: [place] NEXT TEST 00 Medical STRIPS) Branch strip amLODIPine 2019-04 Yes [id number] 5mg Take 1 [facility] 5 mg tablet 2-11 tablet by [facility] of 00:00: mouth [place] 00 daily. Medical Branch vitamin b 2019-04 Yes [id number] 1{tbl} Take 1 [facility] complex-vit 2-11 tablet by [facility] [place] 00:00: mouth [place] c-folic 00 daily. Medical acid 0.8 mg Branch tablet pantoprazol 2019-04 Yes [id number] 40mg Take 1 [facility] e 40 mg EC 2-11 tablet by [facility] of tablet 00:00: mouth [place] 00 daily. Medical Branch sennosides- 2019-04 Yes [id number] 1{tbl} Take 1 [facility] docusate 2-11 tablet by [facility]y of sodium 00:00: mouth 2 [place] 8.6-50 mg 00 (two) Medical per tablet times Branch daily. insulin 2019-04 Yes [id number] Use as [facility] vers syringe-nee 2-11 directed ity of dle U-100 1 00:00: [place] ml (INSULIN 00 Medical SYRINGE) 1 Branch mL 29 gauge x 1/2" Syrg insulin 2019-04 Yes [id number] 28U inject 28 [facility] glargine 2-11 Units [facility] of 100 unit/mL 00:00: under the [place] injection 00 skin 2 Medical (two) Branch times daily. insulin 2019-04 Yes [id number] 18U inject 18 [facility] lispro, 2-11 Units [facility] of human, 100 00:00: under the [place] unit/mL 00 skin 3 Medical injection (three) Branch times daily with meals. furosemide 2019-04 Yes [id number] 80mg Take 1 [facility] 80 mg 2-11 tablet by [facility] of tablet 00:00: mouth [place] 00 every Medical morning Branch and evening. blood sugar 2019-04 Yes [id number] Use as [facility] diagnostic 2-11 directed ity o f (CONTOUR 00:00: [place] NEXT TEST 00 Medical STRIPS) Branch strip amLODIPine 2019-04 Yes [id number] 5mg Take 1 [facility] 5 mg tablet 2-11 tablet by [facility] of 00:00: mouth [place] 00 daily. Medical Branch vitamin b 2019-04 Yes [id number] 1{tbl} Take 1 [facility] complex-vit 2-11 tablet by [facility] [place] 00:00: mouth [place] c-folic 00 daily. Medical acid 0.8 mg Branch tablet pantoprazol 2019-04 Yes [id number] 40mg Take 1 [facility] e 40 mg EC 2-11 tablet by [facility] of tablet 00:00: mouth [place] 00 daily. Medical Branch sennosides- 2019-04 Yes [id number] 1{tbl} Take 1 [facility] docusate 2-11 tablet by ity of sodium 00:00: mouth 2 [place] 8.6-50 mg 00 (two) Medical per tablet times Branch daily. insulin 2019-04 Yes [id number] Use as [facility] vers syringe-nee 2-11 directed ity of dle U-100 1 00:00: [place] ml (INSULIN 00 Medical SYRINGE) 1 Branch mL 29 gauge x 1/2" Syrg insulin 2019-04 Yes [id number] 28U inject 28 [facility] glargine 2-11 Units it[facility] of 100 unit/mL 00:00: under the [place] injection 00 skin 2 Medical (two) Branch times daily. insulin 2019-04 Yes [id number] 18U inject 18 [facility] lispro, 2-11 Units it[facility] of human, 100 00:00: under the [place] unit/mL 00 skin 3 Medical injection (three) Branch times daily with meals. furosemide 2019-04 Yes [id number] 80mg Take 1 [facility] 80 mg 2-11 tablet by [facility] of tablet 00:00: mouth [place] 00 every Medical morning Branch and evening. blood sugar 2019-04 Yes [id number] Use as [facility] diagnostic 2-11 directed ity o f (CONTOUR 00:00: [place] NEXT TEST 00 Medical STRIPS) Branch strip amLODIPine 2019-04 Yes [id number] 5mg Take 1 [facility] 5 mg tablet 2-11 tablet by [facility] of 00:00: mouth [place] 00 daily. Medical Branch vitamin b 2019-04 Yes [id number] 1{tbl} Take 1 [facility] complex-vit 2-11 tablet by [facility] [place] 00:00: mouth [place] c-folic 00 daily. Medical acid 0.8 mg Branch tablet pantoprazol 2019-04 Yes [id number] 40mg Take 1 [facility] e 40 mg EC 2-11 tablet by [facility] of tablet 00:00: mouth [place] 00 daily. Medical Branch sennosides- 2019-04 Yes [id number] 1{tbl} Take 1 [facility] docusate 2-11 tablet by ity of sodium 00:00: mouth 2 [place] 8.6-50 mg 00 (two) Medical per tablet times Branch daily. insulin 2019-04 Yes [id number] Use as [facility] vers syringe-nee 2-11 directed ity of dle U-100 1 00:00: [place] ml (INSULIN 00 Medical SYRINGE) 1 Branch mL 29 gauge x 1/2" Syrg insulin 2019- Yes [id number] 28U inject 28 [facility] glargine 2-11 Units it[facility] of 100 unit/mL 00:00: under the [place] injection 00 skin 2 Medical (two) Branch times daily. insulin 2019-04 Yes [id number] 18U inject 18 [facility] lispro, 2-11 Units [facility] of human, 100 00:00: under the [place] unit/mL 00 skin 3 Medical injection (three) Branch times daily with meals. furosemide 2019-04 Yes [id number] 80mg Take 1 [facility] 80 mg 2-11 tablet by [facility] of tablet 00:00: mouth [place] 00 every Medical morning Branch and evening. blood sugar 2019-04 Yes [id number] Use as [facility] diagnostic 2-11 directed ity o f (CONTOUR 00:00: [place] NEXT TEST 00 Medical STRIPS) Branch strip amLODIPine 2019-04 Yes [id number] 5mg Take 1 [facility] 5 mg tablet 2-11 tablet by [facility] of 00:00: mouth [place] 00 daily. Medical Branch vitamin b 2019-04 Yes [id number] 1{tbl} Take 1 [facility] complex-vit 2-11 tablet by [facility] [place] 00:00: mouth [place] c-folic 00 daily. Medical acid 0.8 mg Branch tablet pantoprazol 2019-04 Yes [id number] 40mg Take 1 [facility] e 40 mg EC 2-11 tablet by [facility] of tablet 00:00: mouth [place] 00 daily. Medical Branch sennosides- 2019-04 Yes [id number] 1{tbl} Take 1 [facility] docusate 2-11 tablet by ity of sodium 00:00: mouth 2 [place] 8.6-50 mg 00 (two) Medical per tablet times Branch daily. insulin 2019-04 Yes [id number] Use as [facility] vers syringe-nee 2-11 directed ity of dle U-100 1 00:00: [place] ml (INSULIN 00 Medical SYRINGE) 1 Branch mL 29 gauge x 1/2" Syrg insulin 2019-04 Yes [id number] 28U inject 28 [facility] glargine 2-11 Units ity of 100 unit/mL 00:00: under the [place] injection 00 skin 2 Medical (two) Branch times daily. insulin 2019-04 Yes [id number] 18U inject 18 [facility] lispro, 2-11 Units it[facility] of human, 100 00:00: under the [place] unit/mL 00 skin 3 Medical injection (three) Branch times daily with meals. furosemide 2019-04 Yes [id number] 80mg Take 1 [facility] 80 mg 2-11 tablet by [facility] of tablet 00:00: mouth [place] 00 every Medical morning Branch and evening. blood sugar 2019-04 Yes [id number] Use as [facility] diagnostic 2-11 directed ity o f (CONTOUR 00:00: [place] NEXT TEST 00 Medical STRIPS) Branch strip amLODIPine 2019-04 Yes [id number] 5mg Take 1 [facility] 5 mg tablet 2-11 tablet by [facility] of 00:00: mouth [place] 00 daily. Medical Branch vitamin b 2019-04 Yes [id number] 1{tbl} Take 1 [facility] complex-vit 2-11 tablet by [facility] [place] 00:00: mouth [place] c-folic 00 daily. Medical acid 0.8 mg Branch tablet pantoprazol 2019-04 Yes [id number] 40mg Take 1 [facility] e 40 mg EC 2-11 tablet by [facility] of tablet 00:00: mouth [place] 00 daily. Medical Branch sennosides- 2019-04 Yes [id number] 1{tbl} Take 1 [facility] docusate 2-11 tablet by ity of sodium 00:00: mouth 2 [place] 8.6-50 mg 00 (two) Medical per tablet times Branch daily. insulin 2019-04 Yes [id number] Use as [facility] vers syringe-nee 2-11 directed ity of dle U-100 1 00:00: [place] ml (INSULIN 00 Medical SYRINGE) 1 Branch mL 29 gauge x 1/2" Syrg insulin 2019-04 Yes [id number] 28U inject 28 [facility] glargine 2-11 Units ity of 100 unit/mL 00:00: under the [place] injection 00 skin 2 Medical (two) Branch times daily. insulin 2019-04 Yes [id number] 18U inject 18 [facility] lispro, 2-11 Units ity of human, 100 00:00: under the [place] unit/mL 00 skin 3 Medical injection (three) Branch times daily with meals. furosemide 2019-04 Yes [id number] 80mg Take 1 [facility] 80 mg 2-11 tablet by [facility] of tablet 00:00: mouth [place] 00 every Medical morning Branch and evening. blood sugar 2019-04 Yes [id number] Use as [facility] diagnostic 2-11 directed ity o f (CONTOUR 00:00: [place] NEXT TEST 00 Medical STRIPS) Branch strip amLODIPine 2019-04 Yes [id number] 5mg Take 1 [facility] 5 mg tablet 2-11 tablet by [facility] of 00:00: mouth [place] 00 daily. Medical Branch vitamin b 2019- Yes [id number] 1{tbl} Take 1 [facility] complex-vit 2-11 tablet by [facility] [place] 00:00: mouth [place] c-folic 00 daily. Medical acid 0.8 mg Branch tablet pantoprazol 2019-04 Yes [id number] 40mg Take 1 [facility] e 40 mg EC 2-11 tablet by ity of tablet 00:00: mouth [place] 00 daily. Medical Branch sennosides- 2019-04 Yes [id number] 1{tbl} Take 1 [facility] docusate 2-11 tablet by ity of sodium 00:00: mouth 2 [place] 8.6-50 mg 00 (two) Medical per tablet times Branch daily. insulin 2019-04 Yes [id number] Use as [facility] vers syringe-nee 2-11 directed ity of dle U-100 1 00:00: [place] ml (INSULIN 00 Medical SYRINGE) 1 Branch mL 29 gauge x 1/2" Syrg insulin 2019-04 Yes [id number] 28U inject 28 [facility] glargine 2-11 Units ity of 100 unit/mL 00:00: under the [place] injection 00 skin 2 Medical (two) Branch times daily. insulin 2019-04 Yes [id number] 18U inject 18 [facility] lispro, 2-11 Units it[facility] of human, 100 00:00: under the [place] unit/mL 00 skin 3 Medical injection (three) Branch times daily with meals. furosemide 2019-04 Yes [id number] 80mg Take 1 [facility] 80 mg 2-11 tablet by [facility] of tablet 00:00: mouth [place] 00 every Medical morning Branch and evening. blood sugar 2019-04 Yes [id number] Use as [facility] diagnostic 2-11 directed ity o f (CONTOUR 00:00: [place] NEXT TEST 00 Medical STRIPS) Branch strip amLODIPine 2019-04 Yes [id number] 5mg Take 1 [facility] 5 mg tablet 2-11 tablet by [facility]y of 00:00: mouth [place] 00 daily. Medical Branch vitamin b 2019-04 Yes [id number] 1{tbl} Take 1 [facility] complex-vit 2-11 tablet by [facility] [place] 00:00: mouth [place] c-folic 00 daily. Medical acid 0.8 mg Branch tablet pantoprazol 2019-04 Yes [id number] 40mg Take 1 [facility] e 40 mg EC 2-11 tablet by [facility]y of tablet 00:00: mouth [place] 00 daily. Medical Branch sennosides- 2019-04 Yes [id number] 1{tbl} Take 1 [facility] docusate 2-11 tablet by ity of sodium 00:00: mouth 2 [place] 8.6-50 mg 00 (two) Medical per tablet times Branch daily. insulin 2019-04 Yes [id number] Use as [facility] vers syringe-nee 2-11 directed ity of dle U-100 1 00:00: [place] ml (INSULIN 00 Medical SYRINGE) 1 Branch mL 29 gauge x 1/2" Syrg insulin 2019-04 Yes [id number] 28U inject 28 [facility] glargine 2-11 Units ity of 100 unit/mL 00:00: under the [place] injection 00 skin 2 Medical (two) Branch times daily. insulin 2019-04 Yes [id number] 18U inject 18 [facility] lispro, 2-11 Units ity of human, 100 00:00: under the [place] unit/mL 00 skin 3 Medical injection (three) Branch times daily with meals. furosemide 2019-04 Yes [id number] 80mg Take 1 [facility] 80 mg 2-11 tablet by [facility] of tablet 00:00: mouth [place] 00 every Medical morning Branch and evening. blood sugar 2019-04 Yes [id number] Use as [facility] diagnostic 2-11 directed ity o f (CONTOUR 00:00: [place] NEXT TEST 00 Medical STRIPS) Branch strip amLODIPine 2019-04 Yes [id number] 5mg Take 1 [facility] 5 mg tablet 2-11 tablet by ity of 00:00: mouth [place] 00 daily. Medical Branch vitamin b 2019-04 Yes [id number] 1{tbl} Take 1 [facility] complex-vit 2-11 tablet by [facility] [place] 00:00: mouth [place] c-folic 00 daily. Medical acid 0.8 mg Branch tablet pantoprazol 2019-04 Yes [id number] 40mg Take 1 [facility] e 40 mg EC 2-11 tablet by ity of tablet 00:00: mouth [place] 00 daily. Medical Branch sennosides- 2019-04 Yes [id number] 1{tbl} Take 1 [facility] docusate 2-11 tablet by ity of sodium 00:00: mouth 2 [place] 8.6-50 mg 00 (two) Medical per tablet times Branch daily. insulin 2019-04 Yes [id number] Use as [facility] vers syringe-nee 2-11 directed ity of dle U-100 1 00:00: [place] ml (INSULIN 00 Medical SYRINGE) 1 Branch mL 29 gauge x 1/2" Syrg insulin 2019-04 Yes [id number] 28U inject 28 [facility] glargine 2-11 Units ity of 100 unit/mL 00:00: under the [place] injection 00 skin 2 Medical (two) Branch times daily. insulin 2019-04 Yes [id number] 18U inject 18 [facility] lispro, 2-11 Units ity of human, 100 00:00: under the [place] unit/mL 00 skin 3 Medical injection (three) Branch times daily with meals. furosemide 2019-04 Yes [id number] 80mg Take 1 [facility] 80 mg 2-11 tablet by [facility] of tablet 00:00: mouth [place] 00 every Medical morning Branch and evening. blood sugar 2019-04 Yes [id number] Use as [facility] diagnostic 2-11 directed ity o f (CONTOUR 00:00: [place] NEXT TEST 00 Medical STRIPS) Branch strip amLODIPine 2019-04 Yes [id number] 5mg Take 1 [facility] 5 mg tablet 2-11 tablet by [facility]y of 00:00: mouth [place] 00 daily. Medical Branch vitamin b 2019-04 Yes [id number] 1{tbl} Take 1 [facility] complex-vit 2-11 tablet by [facility] [place] 00:00: mouth [place] c-folic 00 daily. Medical acid 0.8 mg Branch tablet pantoprazol 2019-04 Yes [id number] 40mg Take 1 [facility] e 40 mg EC 2-11 tablet by [facility]y of tablet 00:00: mouth [place] 00 daily. Medical Branch sennosides- 2019-04 Yes [id number] 1{tbl} Take 1 [facility] docusate 2-11 tablet by ity of sodium 00:00: mouth 2 [place] 8.6-50 mg 00 (two) Medical per tablet times Branch daily. insulin 2019-04 Yes [id number] Use as [facility] vers syringe-nee 2-11 directed ity of dle U-100 1 00:00: [place] ml (INSULIN 00 Medical SYRINGE) 1 Branch mL 29 gauge x 1/2" Syrg insulin 2019- Yes [id number] 28U inject 28 [facility] glargine 2-11 Units ity of 100 unit/mL 00:00: under the [place] injection 00 skin 2 Medical (two) Branch times daily. insulin 2019-04 Yes [id number] 18U inject 18 [facility] lispro, 2-11 Units ity of human, 100 00:00: under the [place] unit/mL 00 skin 3 Medical injection (three) Branch times daily with meals. furosemide 2019-04 Yes [id number] 80mg Take 1 [facility] 80 mg 2-11 tablet by [facility] of tablet 00:00: mouth [place] 00 every Medical morning Branch and evening. blood sugar 2019-04 Yes [id number] Use as [facility] diagnostic 2-11 directed ity o f (CONTOUR 00:00: [place] NEXT TEST 00 Medical STRIPS) Branch strip amLODIPine 2019-04 Yes [id number] 5mg Take 1 [facility] 5 mg tablet 2-11 tablet by ity of 00:00: mouth [place] 00 daily. Medical Branch vitamin b 2019-04 Yes [id number] 1{tbl} Take 1 [facility] complex-vit 2-11 tablet by [facility] 00:00: mouth [place] c-folic 00 daily. Medical acid 0.8 mg Branch tablet pantoprazol 2019-04 Yes [id number] 40mg Take 1 [facility] e 40 mg EC 2-11 tablet by ity of tablet 00:00: mouth [place] 00 daily. Medical Branch sennosides- 2019-04 Yes [id number] 1{tbl} Take 1 [facility] docusate 2-11 tablet by ity of sodium 00:00: mouth 2 [place] 8.6-50 mg 00 (two) Medical per tablet times Branch daily. insulin 2019-04 Yes [id number] Use as [facility] vers syringe-nee 2-11 directed ity of dle U-100 1 00:00: [place] ml (INSULIN 00 Medical SYRINGE) 1 Branch mL 29 gauge x 1/2" Syrg insulin 2019-04 Yes [id number] 28U inject 28 [facility] glargine 2-11 Units ity of 100 unit/mL 00:00: under the [place] injection 00 skin 2 Medical (two) Branch times daily. insulin 2019-04 Yes [id number] 18U inject 18 [facility] lispro, 2-11 Units ity of human, 100 00:00: under the [place] unit/mL 00 skin 3 Medical injection (three) Branch times daily with meals. furosemide 2019-04 Yes [id number] 80mg Take 1 [facility] 80 mg 2-11 tablet by [facility] of tablet 00:00: mouth [place] 00 every Medical morning Branch and evening. blood sugar 2019-04 Yes [id number] Use as [facility] diagnostic 2-11 directed ity o f (CONTOUR 00:00: [place] NEXT TEST 00 Medical STRIPS) Branch strip amLODIPine 2019-04 Yes [id number] 5mg Take 1 [facility] 5 mg tablet 2-11 tablet by ity of 00:00: mouth [place] 00 daily. Medical Branch vitamin b 2019-04 Yes [id number] 1{tbl} Take 1 [facility] complex-vit 2-11 tablet by [facility] 00:00: mouth [place] c-folic 00 daily. Medical acid 0.8 mg Branch tablet pantoprazol 2019- Yes [id number] 40mg Take 1 [facility] e 40 mg EC 2-11 tablet by ity of tablet 00:00: mouth [place] 00 daily. Medical Branch sennosides- 2019-04 Yes [id number] 1{tbl} Take 1 [facility] docusate 2-11 tablet by ity of sodium 00:00: mouth 2 [place] 8.6-50 mg 00 (two) Medical per tablet times Branch daily. insulin 2019-04 Yes [id number] Use as [facility] vers syringe-nee 2-11 directed ity of dle U-100 1 00:00: [place] ml (INSULIN 00 Medical SYRINGE) 1 Branch mL 29 gauge x 1/2" Syrg insulin 2019- Yes [id number] 28U inject 28 [facility] glargine 2-11 Units ity of 100 unit/mL 00:00: under the [place] injection 00 skin 2 Medical (two) Branch times daily. insulin 2019-04 Yes [id number] 18U inject 18 [facility] lispro, 2-11 Units ity of human, 100 00:00: under the [place] unit/mL 00 skin 3 Medical injection (three) Branch times daily with meals. furosemide 2019- Yes [id number] 80mg Take 1 [facility] 80 mg 2-11 tablet by [facility] of tablet 00:00: mouth [place] 00 every Medical morning Branch and evening. blood sugar 2019-04 Yes [id number] Use as [facility] diagnostic 2-11 directed ity o f (CONTOUR 00:00: [place] NEXT TEST 00 Medical STRIPS) Branch strip amLODIPine 2019- Yes [id number] 5mg Take 1 [facility] 5 mg tablet 2-11 tablet by ity of 00:00: mouth [place] 00 daily. Medical Branch vitamin b 2019- Yes [id number] 1{tbl} Take 1 [facility] complex-vit 2-11 tablet by [facility]es 00:00: mouth [place] c-folic 00 daily. Medical acid 0.8 mg Branch tablet pantoprazol 2019-04 Yes [id number] 40mg Take 1 [facility] e 40 mg EC 2-11 tablet by ity of tablet 00:00: mouth [place] 00 daily. Medical Branch sennosides- 2019-04 Yes [id number] 1{tbl} Take 1 [facility] docusate 2-11 tablet by ity of sodium 00:00: mouth 2 [place] 8.6-50 mg 00 (two) Medical per tablet times Branch daily. insulin 2019-04 Yes [id number] Use as [facility] vers syringe-nee 2-11 directed ity of dle U-100 1 00:00: [place] ml (INSULIN 00 Medical SYRINGE) 1 Branch mL 29 gauge x 1/2" Syrg insulin 2019-04 Yes [id number] 28U inject 28 [facility] glargine 2-11 Units ity of 100 unit/mL 00:00: under the [place] injection 00 skin 2 Medical (two) Branch times daily. insulin 2019-04 Yes [id number] 18U inject 18 [facility] lispro, 2-11 Units ity of human, 100 00:00: under the [place] unit/mL 00 skin 3 Medical injection (three) Branch times daily with meals. furosemide 2019-04 Yes [id number] 80mg Take 1 [facility] 80 mg 2-11 tablet by ity of tablet 00:00: mouth [place] 00 every Medical morning Branch and evening. blood sugar 2019-04 Yes [id number] Use as Univers diagnostic -11 directed ity o f (CONTOUR 00:00: [place] NEXT TEST 00 Medical STRIPS) Branch strip amoxicillin 2019-04- No [id number] 500mg Take 1 [facility] -pot 2-11 01-10 tablet by ity of clavulanate 00:00: 05:59 mouth 3 [place] 500 mg 00 :00 (three) Medical (AUGMENTIN) times Branch 500-125 mg daily for tablet 29 days. amoxicillin 2019-04- No [id number] 500mg Take 1 [facility] 500 mg 2-11 01-10 capsule by ity of capsule 00:00: 05:59 mouth 3 [place] 00 :00 (three) Medical times Branch daily for 29 days. amoxicillin 2019-04- No [id number] 500mg Take 1 [facility] -pot 2-11 01-10 tablet by ity of clavulanate 00:00: 05:59 mouth 3 [place] 500 mg 00 :00 (three) Medical (AUGMENTIN) times Branch 500-125 mg daily for tablet 29 days. amoxicillin 2019-04- No [id number] 500mg Take 1 [facility] 500 mg 2-11 01-10 capsule by ity of capsule 00:00: 05:59 mouth 3 [place] 00 :00 (three) Medical times Branch daily for 29 days. amoxicillin 2019-04- No [id number] 500mg Take 1 [facility] -pot 05-15 tablet by ity of clavulanate 00:00: 05:59 mouth 3 [place] 500 mg 00 :00 (three) Medical (AUGMENTIN) times Branch 500-125 mg daily for tablet 29 days. amoxicillin 2019-04- No [id number] 500mg Take 1 [facility] 500 mg 05-15 capsule by ity of capsule 00:00: 05:59 mouth 3 [place] 00 :00 (three) Medical times Branch daily for 29 days. amoxicillin 2019-04- No [id number] 500mg Take 1 [facility] -pot 05-15 tablet by ity of clavulanate 00:00: 05:59 mouth 3 [place] 500 mg 00 :00 (three) Medical (AUGMENTIN) times Branch 500-125 mg daily for tablet 29 days. amoxicillin 2019-04- No [id number] 500mg Take 1 [facility] 500 mg 05-15 capsule by ity of capsule 00:00: 05:59 mouth 3 [place] 00 :00 (three) Medical times Branch daily for 29 days. amoxicillin 2019-04- No [id number] 500mg Take 1 [facility] -pot 05-15 tablet by ity of clavulanate 00:00: 05:59 mouth 3 [place] 500 mg 00 :00 (three) Medical (AUGMENTIN) times Branch 500-125 mg daily for tablet 29 days. amoxicillin 2019-04- No [id number] 500mg Take 1 [facility] 500 mg 05-15 capsule by ity of capsule 00:00: 05:59 mouth 3 [place] 00 :00 (three) Medical times Branch daily for 29 days. amoxicillin 2019-04- No [id number] 500mg Take 1 [facility] -pot 05-15 tablet by ity of clavulanate 00:00: 05:59 mouth 3 [place] 500 mg 00 :00 (three) Medical (AUGMENTIN) times Branch 500-125 mg daily for tablet 29 days. amoxicillin 2019-04- No [id number] 500mg Take 1 [facility] 500 mg 05-15 capsule by ity of capsule 00:00: 05:59 mouth 3 [place] 00 :00 (three) Medical times Branch daily for 29 days. amoxicillin 2019-04- No [id number] 500mg Take 1 [facility] -pot 05-15 tablet by ity of clavulanate 00:00: 05:59 mouth 3 [place] 500 mg 00 :00 (three) Medical (AUGMENTIN) times Branch 500-125 mg daily for tablet 29 days. amoxicillin 2019-04 No [id number] 500mg Take 1 [facility] 500 mg 05-15 capsule by ity of capsule 00:00: 05:59 mouth 3 [place] 00 :00 (three) Medical times Branch daily for 29 days. amoxicillin 2019-04- No [id number] 500mg Take 1 [facility] -pot 05-15 tablet by ity of clavulanate 00:00: 05:59 mouth 3 [place] 500 mg 00 :00 (three) Medical (AUGMENTIN) times Branch 500-125 mg daily for tablet 29 days. amoxicillin 2019-04 No [id number] 500mg Take 1 [facility] 500 mg 05-15 capsule by ity of capsule 00:00: 05:59 mouth 3 [place] 00 :00 (three) Medical times Branch daily for 29 days. amoxicillin 2019-04- No [id number] 500mg Take 1 [facility] -pot 05-15 tablet by ity of clavulanate 00:00: 05:59 mouth 3 [place] 500 mg 00 :00 (three) Medical (AUGMENTIN) times Branch 500-125 mg daily for tablet 29 days. amoxicillin 2019-04- No [id number] 500mg Take 1 [facility] 500 mg 05-15 capsule by ity of capsule 00:00: 05:59 mouth 3 [place] 00 :00 (three) Medical times Branch daily for 29 days. amoxicillin 2019-04- No [id number] 500mg Take 1 [facility] -pot 05-15 tablet by ity of clavulanate 00:00: 05:59 mouth 3 [place] 500 mg 00 :00 (three) Medical (AUGMENTIN) times Branch 500-125 mg daily for tablet 29 days. amoxicillin 2019-04 No [id number] 500mg Take 1 [facility] 500 mg 05-15 capsule by ity of capsule 00:00: 05:59 mouth 3 [place] 00 :00 (three) Medical times Branch daily for 29 days. amoxicillin 2019-04 No [id number] 500mg Take 1 [facility] -pot 05-15 tablet by ity of clavulanate 00:00: 05:59 mouth 3 [place] 500 mg 00 :00 (three) Medical (AUGMENTIN) times Branch 500-125 mg daily for tablet 29 days. amoxicillin 2019-04 No [id number] 500mg Take 1 [facility] 500 mg 05-15 capsule by ity of capsule 00:00: 05:59 mouth 3 [place] 00 :00 (three) Medical times Branch daily for 29 days. amoxicillin 2019-04 No [id number] 500mg Take 1 [facility] -pot 05-15 tablet by ity of clavulanate 00:00: 05:59 mouth 3 [place] 500 mg 00 :00 (three) Medical (AUGMENTIN) times Branch 500-125 mg daily for tablet 29 days. amoxicillin 2019-04 No [id number] 500mg Take 1 [facility] 500 mg 05-15 capsule by ity of capsule 00:00: 05:59 mouth 3 [place] 00 :00 (three) Medical times Branch daily for 29 days. amoxicillin 2019-04 No [id number] 500mg Take 1 [facility] -pot 05-15 tablet by ity of clavulanate 00:00: 05:59 mouth 3 [place] 500 mg 00 :00 (three) Medical (AUGMENTIN) times Branch 500-125 mg daily for tablet 29 days. amoxicillin 2019-04- No [id number] 500mg Take 1 [facility] 500 mg 05-15 capsule by ity of capsule 00:00: 05:59 mouth 3 [place] 00 :00 (three) Medical times Branch daily for 29 days. amoxicillin 2019-04- No [id number] 500mg Take 1 [facility] -pot 05-15 tablet by ity of clavulanate 00:00: 05:59 mouth 3 [place] 500 mg 00 :00 (three) Medical (AUGMENTIN) times Branch 500-125 mg daily for tablet 29 days. amoxicillin 2019-04 No [id number] 500mg Take 1 [facility] 500 mg 2-11 01-10 capsule by ity of capsule 00:00: 05:59 mouth 3 [place] 00 :00 (three) Medical times Branch daily for 29 days. amoxicillin 2019-04 No [id number] 500mg Take 1 [facility] -pot 05-15 tablet by ity of clavulanate 00:00: 05:59 mouth 3 [place] 500 mg 00 :00 (three) Medical (AUGMENTIN) times Branch 500-125 mg daily for tablet 29 days. amoxicillin 2019-04 No [id number] 500mg Take 1 [facility] 500 mg 05-15 capsule by ity of capsule 00:00: 05:59 mouth 3 [place] 00 :00 (three) Medical times Branch daily for 29 days. amoxicillin 2019-04 No [id number] 500mg Take 1 [facility] -pot 05-15 tablet by ity of clavulanate 00:00: 05:59 mouth 3 [place] 500 mg 00 :00 (three) Medical (AUGMENTIN) times Branch 500-125 mg daily for tablet 29 days. amoxicillin 2019-04 No [id number] 500mg Take 1 [facility] 500 mg 05-15 capsule by ity of capsule 00:00: 05:59 mouth 3 [place] 00 :00 (three) Medical times Branch daily for 29 days. amoxicillin 2019-04- No [id number] 500mg Take 1 [facility] -pot 05-15 tablet by ity of clavulanate 00:00: 05:59 mouth 3 [place] 500 mg 00 :00 (three) Medical (AUGMENTIN) times Branch 500-125 mg daily for tablet 29 days. amoxicillin 2019-04 No [id number] 500mg Take 1 [facility] 500 mg 05-15 capsule by ity of capsule 00:00: 05:59 mouth 3 [place] 00 :00 (three) Medical times Branch daily for 29 days. amoxicillin 2019-04 No [id number] 500mg Take 1 [facility] -pot 05-1510 tablet by ity of clavulanate 00:00: 05:59 mouth 3 [place] 500 mg 00 :00 (three) Medical (AUGMENTIN) times Branch 500-125 mg daily for tablet 29 days. amoxicillin 2019-04 No [id number] 500mg Take 1 [facility] 500 mg 05-15 capsule by ity of capsule 00:00: 05:59 mouth 3 [place] 00 :00 (three) Medical times Branch daily for 29 days. amoxicillin 2019-04- No [id number] 500mg Take 1 [facility] -pot 05-15 tablet by ity of clavulanate 00:00: 05:59 mouth 3 [place] 500 mg 00 :00 (three) Medical (AUGMENTIN) times Branch 500-125 mg daily for tablet 29 days. amoxicillin 2019-04- No [id number] 500mg Take 1 [facility] 500 mg 05-15 capsule by ity of capsule 00:00: 05:59 mouth 3 [place] 00 :00 (three) Medical times Branch daily for 29 days. blood sugar 2019-04- No [id number] Use as Univers diagnostic 05-15 directed ity of (ACCU-CHEK 00:00: 00:00 [place] SMARTVIEW 00 :00 Medical TEST STRIP) Branch strip Blood-Gluco 2019-04- No [id number] Use as Univers se Meter 05-15 directed ity of (ACCU-CHEK 00:00: 00:00 [place] GUIDE 00 :00 Medical GLUCOSE Branch METER) Misc insulin 2019-04 2020- No 25U 25 Units, [facility] ers lispro 05-14 Subcutaneo ity of (human) 23:00: 18:30 us, TID [place] (HumaLOG 00 :21 MEALS, Medical U-100) First dose Branch injection (after 25 Units last modificati on) on [facility] 03/13/20 at 1700, Until Discontinu ed, Routine furosemide 2019-04 Yes 60mg 60 mg, Unive rs (LASIX) 2-10 Oral, ity of tablet 60 19:45: QAM+PM, [place] mg 00 First dose Medical on [place] Branch 03/13/20 at 1345, Until Discontinu ed, Routine NaCl 0.9% 2019-04 2020- No 500mL at 999 Univ ers (NS) bolus 2-10 12-10 mL/hr, 500 it y of infusion 17:00: 16:41 mL, IV [place] 500 mL 00 :00 Piggyback, Medical ONCE, 1 Branch dose, [place] 03/13/20 at 1100, Routine amLODIPine 2019-04 Yes 5mg 5 mg, Univer s (NORVASC) 2-10 Oral, ity of tablet 5 mg 15:00: DAILY, [place] 00 First dose Medical (after Branch last modificati on) on Tue03/13/20 at 0900, Until Discontinu ed, Routine insulin 2019-04- No 30U 30 Units, Univ ers glargine 05-14 Subcutaneo ity of (LANTUS 02:00: 21:26 us, BID, [place] U-100) 00 :22 First dose Medical injection (after Branch 30 Units last modificati on) on Tue03/12/20 at 2000, Until Discontinu ed, Routine LORazepam 2019-04 No .5mg 0.5 mg, Univ ers (ATIVAN) 203-13 Oral, ity of tablet 0.5 00:36: 01:37 ONCE, 1 [place] mg 00 :00 dose, Tue Medical 03/12/20 at Branch 1845, Routine Sliding 2019-04- No Subcutaneo Uni vers Scale 05-13 us, TID ity of Insulin - 23:15: 18:37 MEALS+HS, [place] Lispro 00 :03 First dose Medical (HumaLOG) + (after Branch Fsbg last Testing modificati on) on Tue03/12/20 at 1715, Until Discontinu ed, Routine insulin 2019-04- No 20U 20 Units, Univ ers lispro 05-13 Subcutaneo ity of (human) 23:15: 21:26 us, TID [place] (HumaLOG 00 :22 MEALS, Medical U-100) First dose Branch injection (after 20 Units last modificati on) on Tue03/12/20 at 1715, Until Discontinu ed, Routine insulin 2019-04- No 35U 35 Units, Univ ers glargine 05-13 Subcutaneo ity of (LANTUS 02:00: 23:08 us, BID, [place] U-100) 00 :08 First dose Medical injection (after Branch 35 Units last modificati on) on Tue03/11/20 at 2000, Until Discontinu ed, Routine insulin 2019-04- No 23U 23 Units, Univ ers lispro 05-12 Subcutaneo ity of (human) 23:00: 23:08 us, TID [place] (HumaLOG 00 :08 MEALS, Medical U-100) First dose Branch injection (after 23 Units last modificati on) on Tue03/11/20 at 1700, Until Discontinu ed, Routine NaCl 0.9% 2019-04 2020- No 500mL at 999 [facility] ers (NS) bolus 05-1208 mL/hr, 500 it y of infusion 15:15: 16:27 mL, IV [place] 500 mL 00 :00 Piggyback, Medical ONCE, 1 Branch dose, Tue03/11/20 at 0915, Routine vitamin b 2019-04 Yes 1{tbl} 1 tablet, U nivers complex-vit 05-12 Oral, ity of meneses 15:00: DAILY, [place] c-folic 00 First dose Medica l acid on Tue (NEPHRO-VIT 03/11/20 at E) 0.8 mg 0900, tablet 1 Until tablet Discontinu ed, Routine sodium 2019-04 Yes 4mL 4 mL, Univers chloride 7% 05-12 Inhalation it y of (HYPER-SUSAN) 15:00: , DAILY, [place] nebulizer 00 First dose Medi brice solution 4 on Tue mL 03/11/20 at 0900, Until Discontinu ed, Routine sennosides- 2019-04 Yes 1{tbl} 1 tablet, Univers docusate 08 Oral, BID, ity o f sodium 02:00: First dose [place] (SENOKOT-S) 00 (after Medica l 8.6-50 mg last Branch per tablet modificati 1 tablet on) on Tue03/10/20 at 1999, Until Discontinu ed, Routine insulin 2019-04 2020- No 39U 39 Units, [facility] ers glargine 05-12 Subcutaneo ity of (LANTUS 02:00: 19:45 us, BID, [place] U-100) 00 :41 First dose Medical injection (after Branch 39 Units last modificati on) on Tue03/10/20 at 1999, Until Discontinu ed, Routine Sliding 2019-04 2020- No Subcutaneo Uni vers Scale 05-1109 us, Q4H, ity of Insulin - 23:00: 23:08 First dose [place] Lispro 00 :08 (after Medical (HumaLOG) + last Branch Fsbg modificati Testing on) on 03/10/20 at 1700, Until Discontinu ed, Routine insulin 2019-04- No 26U 26 Units, Univ ers lispro 2 12-08 Subcutaneo ity of (human) 23:00: 19:45 us, TID [place] (HumaLOG 00 :41 MEALS, Medical U-100) First dose Branch injection (after 26 Units last modificati on) on 03/10/20 at 1700, Until Discontinu ed, Routine NaCl 0.9% 2019-04- No 1000mL at 999 Uni vers (NS) bolus 2 12-07 mL/hr, ity of infusion 14:15: 14:30 1,000 mL, [place] 1,000 mL 00 :00 IV Medical Piggyback, Branch ONCE, 1 dose, 03/10/20 at 0815, Routine HYDROcodone 2019-04- No 1{tbl} 1 tablet, Univers -acetaminop 2 12-06 Oral, ity of hen (NORCO 17:30: 18:09 ONCE, 1 [place] 5) 5-325 mg 00 :00 dose, [place] Med ical tablet 1 03/09/20 at [facility] h tablet 1130, Routine, PACU sennosides- 2019-04- No 2{tbl} 2 tablet, Univers docusate 2 12-07 Oral, BID, ity of sodium 14:00: 19:10 First dose [place] (SENOKOT-S) 00 :36 (after Medica l 8.6-50 mg last Branch per tablet modificati 2 tablet on) on 03/09/20 at 0800, Until Discontinu ed, Routine NaCl 0.9% 2019-04- No 1000mL at 100 Uni vers (NS) IV 2 12-06 mL/hr, IV ity of infusion 18:30: 19:38 Infusion, [place] 1,000 mL 00 :30 CONTINUOUS Medic al , Starting Branch 03/08/20 at 1230, Until 03/09/20 at 1338, Routine Polyethylen 2019-04 Yes 17g 17 g, Unive rs e Glycol 2-05 Oral, BID, ity o f 3350 02:00: First dose [place] (MIRALAX) 00 on Tue Medical powder 17 g 03/07/20 at Br anch 2000, Until Discontinu ed, Routine HYDROmorpho 2019-04 No .2mg 0.2 mg, [place] ne 05-08 Slow IV ity of (DILAUDID) 19:39: 20:35 Push, [place] injection 49 :17 Q5MIN PRN, Medi brice 0.2 mg 10 doses, Branch Starting Tue03/07/20 at 1339, Until Tue03/07/20 at 1435, Routine, Pain (scale 7-10), PACU
Us e approved by (Faculty): PACU USE -ANESTHESI A SERVICE-HY DROMORPHON E INJECTIONS FENTanyl PF 2019-04 No 25ug 25 mcg, [place] (SUBLIMAZE 05-08 Slow IV ity o f (PF)) 19:21: 19:40 Push, [place] injection 25 :00 Q5MIN PRN, Medi brice 25 mcg 4 doses, Branch Starting Tue03/07/20 at 1321, Until Tue03/07/20 at 1340, Routine, Pain (scale 4-6), PACU lactated 2019-04 No 1000mL at 999 [facility] ers ringers IV 05-08-04 mL/hr, ity of infusion 12:30: 12:34 1,000 mL, [place] 1,000 mL 00 :00 IV Medical Infusion, Branch ONCE, 1 dose, Tue03/07/20 at 0630, Routine insulin 2019-04 23U 23 Units, [facility] ers glargine 05-08 Subcutaneo ity of (LANTUS 02:00: 22:57 us, BID, [place] U-100) 00 :28 First dose Medical injection (after Branch 23 Units last modificati on) on Tue03/06/20 at 2000, Until Discontinu ed, Routine Sliding 2019-04 Subcutaneo Uni vers Scale 2-07 us, TID ity of Insulin - 23:00: 22:57 MEALS+HS, [place] Lispro 00 :28 First dose Medical (HumaLOG) + (after Branch Fsbg last Testing modificati on) on Tue03/06/20 at 1700, Until Discontinu ed, Routine insulin 2019-04 2020- No 15U 15 Units, [facility] ers lispro 05-0707 Subcutaneo ity of (human) 23:00: 22:57 us, TID [place] (HumaLOG 00 :28 MEALS, Medical U-100) First dose Branch injection (after 15 Units last modificati on) on [place] 03/06/20 at 1700, Until Discontinu ed, Routine pantoprazol 2019-04 Yes 40mg 40 mg, [facility] ers e 05-07 Oral, ity of (PROTONIX) 15:00: DAILY, [place] EC tablet 00 First dose Medi brice 40 mg on Tue Branch 03/06/20 at 0900, Until Discontinu ed, Routine insulin 2019-04- No 24U 24 Units, [facility] glargine 05-07 Subcutaneo ity of (LANTUS 02:00: 18:42 us, BID, [place] U-100) 00 :11 First dose Medical injection (after Branch 24 Units last modificati on) on Tue03/05/20 at 2000, Until Discontinu ed, Routine morpHINE 2019-04 Yes 2mg 2 mg, Slow Uni vers injection 2 05-06 IV Push, ity of mg 23:33: Q4HPRN, [place] 05 Starting Medical Wed Branch 03/05/20 at 1733, Until Discontinu ed, Routine, Pain (scale 7-10) HYDROcodone 2019-04 Yes 1{tbl} 1 tablet, Univers -acetaminop 05-06 Oral, ity of hen (NORCO 23:32: Q6HPRN, [facility] s 5) 5-325 mg 42 Starting Medi brice tablet 1 Tue Branch tablet 03/05/20 at 1732, Until Discontinu ed, Routine, Pain (scale 4-6) insulin 2019-04 2020- No 12U 12 Units, [facility] ers lispro 05-06 Subcutaneo ity of (human) 23:00: 18:42 us, TID [place] (HumaLOG 00 :11 MEALS, Medical U-100) First dose Branch injection (after 12 Units last modificati on) on Tue03/05/20 at 1700, Until Discontinu ed, Routine sennosides- 2019-04 2020- No 1{tbl} 1 tablet, Univers docusate 05-06 Oral, BID, ity of sodium 20:45: 12:53 First dose [place] (SENOKOT-S) 00 :51 on Tue Medica l 8.6-50 mg 03/05/20 at [facility] per tablet 1445, 1 tablet Until Discontinu ed, Routine HYDROcodone 2019-04- No 1{tbl} 1 tablet, [facility] -acetaminop 05-06 Oral, ity of hen (NORCO 18:45: 19:05 ONCE, 1 [place] 5) 5-325 mg 00 :00 dose, Tue Med ical tablet 1 03/05/20 at [facility] h tablet 1245, Routine, PACU FENTanyl PF 2019-04 25ug 25 mcg, [place] (SUBLIMAZE 05-06 Slow IV ity o f (PF)) 18:33: 20:08 Push, [place] injection 31 :30 Q5MIN PRN, Medi brice 25 mcg 4 doses, Branch Starting Tue03/05/20 at 1233, Until Tue03/05/20 at 1408, Routine, Pain (scale 4-6), PACU heparin 2019-04 Yes 5000U 5,000 Univers (porcine) 05-06 Units, ity of injection 02:00: Subcutaneo [place] 5,000 Units 00 us, Q12H, Med ical First dose Branch on Tue03/04/20 at 2000, Until Discontinu ed, Routine insulin 2019-04- No 22U 22 Units, [facility] ers glargine 05-06 Subcutaneo ity of (LANTUS 02:00: 20:08 us, BID, [place] U-100) 00 :19 First dose Medical injection (after Branch 22 Units last modificati on) on Tue03/04/20 at 2000, Until Discontinu ed, Routine insulin 2019-04- No 14U 14 Units, [facility] ers lispro 05-05 Subcutaneo ity of (human) 23:00: 20:08 us, TID [place] (HumaLOG 00 :19 MEALS, Medical U-100) First dose Branch injection (after 14 Units last modificati on) on Tue03/04/20 at 1700, Until Discontinu ed, Routine Sliding 2020-1 2020- No Subcutaneo Uni vers Scale 05-0503 us, Q4H, ity of Insulin - 22:00: 18:47 First dose [place] Lispro 00 :45 (after Medical (HumaLOG) + last Branch Fsbg modificati Testing on) on Tue03/04/20 at 1600, Until Discontinu ed, Routine HYDROcodone 2019-04 2020- No 1{tbl} 1 tablet, Univers -acetaminop 05-05 Oral, ity of hen (NORCO 21:27: 23:33 Q6HPRN, [place] 5) 5-325 mg 49 :22 Starting Medi brice tablet 1 Tue Branch tablet 03/04/20 at 1527, Until 03/05/20 at 1733, Routine, Pain (scale 4-6), Pain (scale 7-10) acetaminoph 2019-04 Yes 325mg 325 mg, Un [place] en 05-05 Oral, ity of (TYLENOL) 21:27: Q6[place], [place] tablet 325 34 Starting Medic al mg Tue Branch 03/04/20 at 1527, Until Discontinu ed, Routine, Pain (scale 1-3), Temp > 38.5 C alum-mag 2019-04 2020- No 30mL 30 mL, [facility] s hydroxide-s 05-05 Oral, ity of imeth 18:16: 12:[address] [facility], [place] (MAALOX 07 :25 Starting Medical PLUS / Tue Branch MAG-AL 03/04/20 at PLUS) 1216, 200-200-20 Until Fri mg/5 mL 03/07/20 at suspension 0643, 30 mL Routine, Indigestio n insulin 2019-04 2020- No 4U 4 Units, Unive rs lispro 05-05 Subcutaneo ity of (human) 14:00: 21:10 , TID [place] (HumaLOG 00 :59 MEALS, Medical U-100) First dose Branch injection 4 on Tue Units 03/04/20 at 0800, Until Discontinu ed, Routine ampicillin- 2019-04 Yes 3g 3 g, IV Uni vers sulbactam 05-05 Piggyback, ity of (UNASYN) 3 13:15: Q6H ABX, [place] as g in NaCl 00 First dose Medi brice 0.9% (NS) on Tue Branch 100 mL 03/04/20 at MINI-BAG 0715, Until Discontinu ed, 100 mL
Reas on for Anti-Infec tive: Empiric Therapy for Suspected Infection< br>Empiric Therapy Site: Bone
Duration of therapy: 72 hours insulin 2019-04 No 21U 21 Units, Univ ers glargine 05-05 Subcutaneo ity of (LANTUS 02:00: 21:10 us, BID, [place] U-100) 00 :59 First dose Medical injection (after Branch 21 Units last modificati on) on Tue03/03/20 at 2000, Until Discontinu ed, Routine insulin 2019-04 No 4U 4 Units, [facility] lispro 05-03 Subcutaneo ity of (human) 23:00: 13:11 us, TID [place] (HumaLOG 00 :59 MEALS, Medical U-100) First dose Branch injection 4 on Tue Units 03/03/20 at 1700, Until Discontinu ed, Routine HYDROcodone 2019-04 No 1{tbl} 1 tablet, Univers -acetaminop 05-03 Oral, ity of hen (NORCO 21:23: 21:28 Q6HPRN, [place] as 5) 5-325 mg 15 :05 Starting Medi brice tablet 1 Tue Branch tablet 03/03/20 at 1523, Until Tue03/04/20 at 1528, Routine, Pain (scale 4-6) Sliding 2019-04 Subcutaneo Uni vers Scale 1-30 03-04 us, Q3H, ity of Insulin - 20:30: 21:10 First dose [place] Lispro 00 :59 (after Medical (HumaLOG) + last Branch Fsbg modificati Testing on) on Tue03/03/20 at 1430, Until Discontinu ed, Routine Sliding 2019-04 Subcutaneo Uni vers Scale 1-30 - us, Q3H, ity of Insulin - 17:00: 20:24 First dose [place] Lispro 00 :37 on Tue Medical (HumaLOG) + 03/03/20 Bran ch Fsbg at 1100, Testing Until Discontinu ed, Routine insulin 2019-04 No 22U 22 Units, Univ ers glargine 05-03 Subcutaneo ity of (LANTUS 16:45: 16:19 us, ONCE, [place] U-100) 00 :00 1 dose, Medical injection Mon Branch 22 Units 03/03/20 at 1045, RENU D5W 0.9% 2019-04 No 1000mL at 75 Unive rs NaCl (NS) 05-0330 mL/hr, ity of IV infusion 14:15: 18:03 1,000 mL, [place] 1,000 mL 00 :45 IV Medical Infusion, Branch CONTINUOUS , Starting Tue03/03/20 at 0815, Until Tue03/03/20 at 1203, Routine insulin 2019-04 No .15U/kg 7 Units Uni vers lispro 05-03 /d (rounded ity of (human) 14:00: 16:05 from 6.805 [place] as (HumaLOG 00 :28 Units = Medical U-100) 0.15 Branch injection 7 Units/kg/d Units ay ?136.1 kg), Subcutaneo us, TID MEALS, First dose (after last reorder) on Tue03/03/20 at 0800, Until Discontinu ed, Routine D5W 0.9% 2019-04 No 1000mL at 150 Univ ers NaCl (NS) 05-03 mL/hr, ity of IV infusion 10:15: 12:37 1,000 mL, [place] 1,000 mL 00 :39 IV Medical Infusion, Branch CONTINUOUS , Starting Tue03/03/20 at 0415, Until Tue03/03/20 at 0637, Routine Sliding 2019-04 Subcutaneo Uni vers Scale 05-03 us, Q4H, ity of Insulin - 07:52: 16:05 First dose [place] Aspart 00 :34 (after Medical (NOVOLOG) + last Branch Fsbg modificati Testing on) on Tue03/03/20 at 0200, Until Discontinu ed, Routine promethazin 2019-04 No 6.25mg 6.25 mg, Univers e 05-03 Oral, ity of (PHENERGAN) 04:30: 05:09 ONCE, 1 [place] 6.25 mg/5 00 :00 dose, Sun Medic al mL solution 03/02/20 Bran ch 6.25 mg at 2230, Routine D5W 0.9% 2019-04 No 1000mL at 200 [facility] ers NaCl (NS) 05-03 11-30 mL/hr, ity of IV infusion 01:00: 09:06 1,000 mL, [place] 1,000 mL 00 :39 IV Medical Infusion, Branch CONTINUOUS , Starting [place] 03/02/20 at 1900, Until [facility] 03/03/20 at 0306, Routine NaCl 0.9% 2019-04- No 1000mL at 75 [facility] ers (NS) IV 05-02 11-30 mL/hr, IV ity of infusion 23:30: 00:15 Infusion, [place] as 1,000 mL 00 :38 CONTINUOUS Medic al , Starting Branch [place] 03/02/20 at 1730, Until [place] 03/02/20 at 1815, Routine insulin 2019-04- No .15U/kg 7 Units Uni vers lispro 05-02 11 /d (rounded ity of (human) 23:00: 06:32 from 6.805 [place] as (HumaLOG 00 :57 Units = Medical U-100) 0.15 Branch injection 7 Units/kg/d Units ay ?136.1 kg), Subcutaneo us, TID MEALS, First dose on [place] 03/02/20 at 1700, Until Discontinu ed, Routine ceFAZolin 2019-04- No 1000mg 1,000 mg, Univers (ANCEF) 05-02 IV ity of 1,000 mg in 15:15: 12:02 [place], [place] NaCl 0.9% 00 :51 Q8H ABX, Medica l (NS) 50 mL First dose [facility] MINI-BAG on [place] 03/02/20 at 0915, Until Discontinu ed, 50 mL
R sallie for Anti-Infec tive: Empiric Therapy for Suspected Infection< br>Empiric Therapy Site: Skin / Soft tissue
Duration of therapy: 7 days KCL 2019-04- No 40meq 40 mEq, Univers (KLOR-CON 05-02 Oral, Q4H, ity of M20) tablet 14:00: 19:46 2 doses, [place] 40 mEq 00 :00 First dose Medical (after Branch last modificati on) on [facility] 03/02/20 at 0800, Last dose on [facility] 03/02/20 at 1200, Routine KCL 2019-04 40meq 40 mEq, Univers (KLOR-CON 05-02 Oral, BID, ity of M20) tablet 12:15: 13:15 First dose [place] 40 mEq 00 :24 on [facility] 03/02/20 Branch at 0615, Until Discontinu ed, Routine potassium 2019-04 40meq 40 mEq, IV Univers chloride in 05-02 Piggyback, i ty of water (KCL) 12:15: 13:15 BID, First [place] 40 mEq/100 00 :23 dose on Medica l mL 40 mEq [facility] Branch piggyback 03/02/20 at 0615, Until Discontinu ed meropenem 2019-04 500mg 500 mg, IV Univers (MERREM) 05-02 Piggyback, ity of 500 mg in 10:00: 13:14 Administer [place] NaCl 0.9% 00 :34 over 60 Medical (NS) 100 mL Minutes, Bran ch MINI-BAG Q12H ABX, First dose on [place] 03/02/20 at 0400, Until Discontinu ed, RENU
Re stricted use approved by: [address] FLOOR
R sallie for Anti-Infec tive: Empiric Therapy for Suspected Infection< br>Empiric Therapy Site: Blood
D uration of therapy: 72 hours vancomycin 2019-04 15mg/kg 1,500 mg Univers 1500 mg in 05-02 (rounded ity of NS 500 mL 10:00: 13:11 from [place] IV 00 :02 2,041.5 mg Medical Piggyback = 15 mg/kg Bran ch RTU 1,500 ?136.1 mg kg), IV Piggyback, Q24H ABX, First dose on [place] 03/02/20 at 0400, Until Discontinu ed
Reas on for Anti-Infec tive: Empiric Therapy for Suspected Infection< br>Empiric Therapy Site: Blood
D uration of therapy: 72 hours D5W 0.45% 2019-04 IV Univers NaCl 05-02 Infusion, ity of (1/2NS) 1 L 08:30: 22:03 at 200 Adriano as + KCL 20 00 :13 mL/hr, Medical mEq CONTINUOUS Branch , Starting [facility] 03/02/20 at 0230, Until [place] 03/02/20 at 1603, RENU NaCl 0.45% 2019-04 No 1000mL Univ ers (1/2NS) 05-02 ity of 1000 mL + 08:30: 22:16 [place] KCL 20 mEq 00 :12 Medical Branch NaCl 0.9% 2019-04 2020- No 15mL/kg at 2,041.5 Univers (NS) bolus 05-02 /h mL/hr, 15 ity of infusion 08:30: 09:14 mL/kg/hr [place] 00 :00 ?136.1 kg Medical (2,041.5 Branch mL/hr), IV Infusion, ONCE, 1 dose, [place] 03/02/20 at 0230, STAT ondansetron 2019-04 Yes 4mg 4 mg, Slow Univers (ZOFRAN 05-02 IV Push, ity of (PF)) 07:59: Q6HPRN, [place] injection 4 39 Starting Medi brice mg [facility] 03/02/20 at 0159, Until Discontinu ed, Routine, Nausea and Vomiting (N/V) glucagon 2019-04 Yes 1mg 1 mg, Univers (GLUCAGEN 05-02 Intramuscu ity of DIAGNOSTIC 06:59: [place], PRN, [place] KIT) 26 Starting Medical injection 1 [facility] mg 03/02/20 at 0059, Until Discontinu ed, RENU, Blood Glucose < or = 70 mg/dL and patient is unable to swallow or has mental changes. dextrose 50 2019-04 Yes 25mL 25 mL, Univ ers % in water 05-02 Slow IV ity of (D50W) 06:59: Push, PRN, [place] injection 26 Starting Medica l 25 mL [facility] 03/02/20 at 0059, Until Discontinu ed, REUN, Blood Glucose < or = 70 mg/dL and patient is unable to swallow or has mental status changes. atorvastati Yes 40mg Take 1 Univ ers n 40 mg 1-10 tablet by ity of tablet 00:00: mouth at [place] 00 bedtime. [facility] Branch pen needle, Yes 1{box} 1 Box 4 U nivers diabetic 32 1-10 (four) ity of gauge x 00:00: times [place] /" Ndle 00 daily. Medical Branch lancets Yes Use as Unive rs gauge Misc 1-10 directed ity o f 00:00: [place] 00 Medical Branch atorvastati Yes 40mg Take 1 Univ ers n 40 mg 1-10 tablet by ity of tablet 00:00: mouth at [place] 00 bedtime. Medical Branch pen needle, Yes 1{box} 1 Box 4 U nivers diabetic 32 1-10 (four) ity of gauge x 00:00: times [place] 04/09" Ndle 00 daily. Medical Branch lancets Yes Use as Unive rs gauge Misc 1-10 directed ity o f 00:00: [place] 00 Medical Branch atorvastati Yes 40mg Take 1 Univ ers n 40 mg 1-10 tablet by ity of tablet 00:00: mouth at [place] 00 bedtime. Medical Branch pen needle, Yes 1{box} 1 Box 4 U nivers diabetic 32 1-10 (four) ity of gauge x 00:00: times [place] 04/09" Ndle 00 daily. Medical Branch lancets Yes Use as Unive rs gauge Misc 1-10 directed ity o f 00:00: [place] 00 Medical Branch atorvastati Yes 40mg Take 1 Univ ers n 40 mg 1-10 tablet by ity of tablet 00:00: mouth at [place] 00 bedtime. Medical Branch pen needle, Yes 1{box} 1 Box 4 U nivers diabetic 32 1-10 (four) ity of gauge x 00:00: times [place] /" Ndle 00 daily. Medical Branch lancets Yes Use as Unive rs gauge Misc 1-10 directed ity o f 00:00: 00 Medical Branch atorvastati Yes 40mg Take 1 Univ ers n 40 mg 1-10 tablet by ity of tablet 00:00: mouth at [place] 00 bedtime. Medical Branch pen needle, Yes 1{box} 1 Box 4 U nivers diabetic 32 1-10 (four) ity of gauge x 00:00: times [place] 04/09" Ndle 00 daily. Medical Branch lancets 31 Yes Use as Unive rs gauge Misc 1-10 directed ity o f 00:00: 00 Medical Branch atorvastati Yes 40mg Take 1 Univ ers n 40 mg 1-10 tablet by ity of tablet 00:00: mouth at 00 bedtime. Medical Branch pen needle, Yes 1{box} 1 Box 4 U nivers diabetic 32 1-10 (four) ity of gauge x 00:00: times 04/09" Ndle 00 daily. Medical Branch lancets 31 Yes Use as Unive rs gauge Misc 1-10 directed ity o f 00:00: 00 Medical Branch atorvastati Yes 40mg Take 1 Univ ers n 40 mg 1-10 tablet by ity of tablet 00:00: mouth at 00 bedtime. Medical Branch pen needle, Yes 1{box} 1 Box 4 U nivers diabetic 32 1-10 (four) ity of gauge x 00:00: times 04/09" Ndle 00 daily. Medical Branch lancets Yes Use as Unive rs gauge Misc 1-10 directed ity o f 00:00: 00 Medical Branch atorvastati Yes 40mg Take 1 Univ ers n 40 mg 1-10 tablet by ity of tablet 00:00: mouth at 00 bedtime. Medical Branch pen needle, Yes 1{box} 1 Box 4 U nivers diabetic 32 1-10 (four) ity of gauge x 00:00: times 04/09" Ndle 00 daily. Medical Branch lancets Yes Use as Unive rs gauge Misc 1-10 directed ity o f 00:00: [place] 00 Medical Branch atorvastati Yes 40mg Take 1 Univ ers n 40 mg 1-10 tablet by ity of tablet 00:00: mouth at 00 bedtime. Medical Branch pen needle, Yes 1{box} 1 Box 4 U nivers diabetic 32 1-10 (four) ity of gauge x 00:00: times [place] 04/09" Ndle 00 daily. Medical Branch lancets Yes Use as Unive rs gauge Misc 1-10 directed ity o f 00:00: [place] 00 Medical Branch atorvastati Yes 40mg Take 1 Univ ers n 40 mg 1-10 tablet by ity of tablet 00:00: mouth at [place] 00 bedtime. Medical Branch pen needle, Yes 1{box} 1 Box 4 U nivers diabetic 32 1-10 (four) ity of gauge x 00:00: times [place] /" Ndle 00 daily. Medical Branch lancets 31 Yes Use as Unive rs gauge Misc 1-10 directed ity o f 00:00: [place] 00 Medical Branch atorvastati Yes 40mg Take 1 Univ ers n 40 mg 1-10 tablet by ity of tablet 00:00: mouth at 00 bedtime. Medical Branch pen needle, Yes 1{box} 1 Box 4 U nivers diabetic 32 1-10 (four) ity of gauge x 00:00: times [place] /" Ndle 00 daily. Medical Branch lancets 31 Yes Use as Unive rs gauge Misc 1-10 directed ity o f 00:00: Medical Branch atorvastati Yes 40mg Take 1 Univ ers n 40 mg 1-10 tablet by ity of tablet 00:00: mouth at 00 bedtime. Medical Branch pen needle, Yes 1{box} 1 Box 4 U nivers diabetic 32 1-10 (four) ity of gauge x 00:00: times [place] 04/09" Ndle 00 daily. Medical Branch lancets 31 Yes Use as Unive rs gauge Misc 1-10 directed ity o f 00:00: Medical Branch atorvastati Yes 40mg Take 1 Univ ers n 40 mg 1-10 tablet by ity of tablet 00:00: mouth at [place] 00 bedtime. Medical Branch pen needle, Yes 1{box} 1 Box 4 U nivers diabetic 32 1-10 (four) ity of gauge x 00:00: times [place] /" Ndle 00 daily. Medical Branch lancets 31 Yes Use as Unive rs gauge Misc 1-10 directed ity o f 00:00: Medical Branch atorvastati Yes 40mg Take 1 Univ ers n 40 mg 1-10 tablet by ity of tablet 00:00: mouth at [place] 00 bedtime. Medical Branch pen needle, Yes 1{box} 1 Box 4 U nivers diabetic 32 1-10 (four) ity of gauge x 00:00: times [place] /" Ndle 00 daily. Medical Branch lancets 31 Yes Use as Unive rs gauge Misc 1-10 directed ity o f 00:00: [place] 00 Medical Branch atorvastati Yes 40mg Take 1 Univ ers n 40 mg 1-10 tablet by ity of tablet 00:00: mouth at [place] 00 bedtime. Medical Branch pen needle, Yes 1{box} 1 Box 4 U nivers diabetic 32 1-10 (four) ity of gauge x 00:00: times [place] 04/09" Ndle 00 daily. Medical Branch lancets Yes Use as Unive rs gauge Misc 1-10 directed ity o f 00:00: [place] 00 Medical Branch atorvastati Yes 40mg Take 1 Univ ers n 40 mg 1-10 tablet by ity of tablet 00:00: mouth at [place] 00 bedtime. Medical Branch pen needle, Yes 1{box} 1 Box 4 U nivers diabetic 32 1-10 (four) ity of gauge x 00:00: times [place] 04/09" Ndle 00 daily. Medical Branch lancets Yes Use as Unive rs gauge Misc 1-10 directed ity o f 00:00: [place] 00 Medical Branch atorvastati Yes 40mg Take 1 Univ ers n 40 mg 1-10 tablet by ity of tablet 00:00: mouth at [place] 00 bedtime. Medical Branch pen needle, Yes 1{box} 1 Box 4 U nivers diabetic 32 1-10 (four) ity of gauge x 00:00: times [place] 04/09" Ndle 00 daily. Medical Branch lancets Yes Use as Unive rs gauge Misc 1-10 directed ity o f 00:00: [place] 00 Medical Branch atorvastati Yes 40mg Take 1 Univ ers n 40 mg 1-10 tablet by ity of tablet 00:00: mouth at [place] 00 bedtime. Medical Branch pen needle, Yes 1{box} 1 Box 4 U nivers diabetic 32 1-10 (four) ity of gauge x 00:00: times [place] /" Ndle 00 daily. Medical Branch lancets 31 Yes Use as Unive rs gauge Misc 1-10 directed ity o f 00:00: [place] 00 Medical Branch atorvastati Yes 40mg Take 1 Univ ers n 40 mg 1-10 tablet by ity of tablet 00:00: mouth at [place] 00 bedtime. Medical Branch pen needle, Yes 1{box} 1 Box 4 U nivers diabetic 32 1-10 (four) ity of gauge x 00:00: times [place] /" Ndle 00 daily. Medical Branch lancets 31 Yes Use as Unive rs gauge Misc 1-10 directed ity o f 00:00: [place] 00 Medical Branch atorvastati Yes 40mg Take 1 Univ ers n 40 mg 1-10 tablet by ity of tablet 00:00: mouth at [place] 00 bedtime. Medical Branch pen needle, Yes 1{box} 1 Box 4 U nivers diabetic 32 1-10 (four) ity of gauge x 00:00: times [place] 04/09" Ndle 00 daily. Medical Branch lancets Yes Use as Unive rs gauge Misc 1-10 directed ity o f 00:00: [place] 00 Medical Branch atorvastati Yes 40mg Take 1 Univ ers n 40 mg 1-10 tablet by ity of tablet 00:00: mouth at [place] 00 bedtime. Medical Branch pen needle, Yes 1{box} 1 Box 4 U nivers diabetic 32 1-10 (four) ity of gauge x 00:00: times [place] 04/09" Ndle 00 daily. Medical Branch lancets Yes Use as Unive rs gauge Misc 1-10 directed ity o f 00:00: Medical Branch atorvastati 0 Yes 40mg Take 1 Univ ers n 40 mg 1-10 tablet by ity of tablet 00:00: mouth at [place] 00 bedtime. Medical Branch pen needle, Yes 1{box} 1 Box 4 U nivers diabetic 32 1-10 (four) ity of gauge x 00:00: times [place] /" Ndle 00 daily. Medical Branch lancets 0 Yes Use as Unive rs gauge Misc 1-10 directed ity o f 00:00: [place] 00 Medical Branch atorvastati Yes 40mg Take 1 Univ ers n 40 mg 1-10 tablet by ity of tablet 00:00: mouth at [place] 00 bedtime. Medical Branch pen needle, Yes 1{box} 1 Box 4 U nivers diabetic 32 1-10 (four) ity of gauge x 00:00: times [place] 04/09" Ndle 00 daily. Medical Branch lancets 31 Yes Use as Unive rs gauge Misc 1-10 directed ity o f 00:00: [place] 00 Medical Branch atorvastati Yes 40mg Take 1 Univ ers n 40 mg 1-10 tablet by ity of tablet 00:00: mouth at [place] 00 bedtime. Medical Branch pen needle, Yes 1{box} 1 Box 4 U nivers diabetic 32 1-10 (four) ity of gauge x 00:00: times [place] 04/09" Ndle 00 daily. Medical Branch lancets 31 Yes Use as Unive rs gauge Misc 1-10 directed ity o f 00:00: [place] 00 Medical Branch atorvastati Yes 40mg Take 1 Univ ers n 40 mg 1-10 tablet by ity of tablet 00:00: mouth at [place] 00 bedtime. Medical Branch pen needle, Yes 1{box} 1 Box 4 U nivers diabetic 32 1-10 (four) ity of gauge x 00:00: times [place] 04/09" Ndle 00 daily. Medical Branch lancets 31 Yes Use as Unive rs gauge Misc 1-10 directed ity o f 00:00: [place] 00 Medical Branch atorvastati Yes 40mg Take 1 Univ ers n 40 mg 1-10 tablet by ity of tablet 00:00: mouth at 00 bedtime. Medical Branch pen needle, Yes 1{box} 1 Box 4 U nivers diabetic 32 1-10 (four) ity of gauge x 00:00: times [place] /" Ndle 00 daily. Medical Branch lancets 31 Yes Use as Unive rs gauge Misc 1-10 directed ity o f 00:00: [place] 00 Medical Branch atorvastati Yes 40mg Take 1 Univ ers n 40 mg 1-10 tablet by ity of tablet 00:00: mouth at 00 bedtime. Medical Branch pen needle, Yes 1{box} 1 Box 4 U nivers diabetic 32 1-10 (four) ity of gauge x 00:00: times [place] /" Ndle 00 daily. Medical Branch lancets 31 Yes Use as Unive rs gauge Misc 1-10 directed ity o f 00:00: Medical Branch atorvastati Yes 40mg Take 1 Univ ers n 40 mg 1-10 tablet by ity of tablet 00:00: mouth at 00 bedtime. Medical Branch pen needle, Yes 1{box} 1 Box 4 U nivers diabetic 32 1-10 (four) ity of gauge x 00:00: times 04/09" Ndle 00 daily. Medical Branch lancets 31 Yes Use as Unive rs gauge Misc 1-10 directed ity o f 00:00: Medical Branch atorvastati Yes 40mg Take 1 Univ ers n 40 mg 1-10 tablet by ity of tablet 00:00: mouth at 00 bedtime. Medical Branch pen needle, Yes 1{box} 1 Box 4 U nivers diabetic 32 1-10 (four) ity of gauge x 00:00: times [place] 04/09" Ndle 00 daily. Medical Branch lancets 31 Yes Use as Unive rs gauge Misc 1-10 directed ity o f 00:00: Medical Branch atorvastati Yes 40mg Take 1 Univ ers n 40 mg 1-10 tablet by ity of tablet 00:00: mouth at 00 bedtime. Medical Branch pen needle, Yes 1{box} 1 Box 4 U nivers diabetic 32 1-10 (four) ity of gauge x 00:00: times [place] 04/09" Ndle 00 daily. Medical Branch lancets 31 Yes Use as Unive rs gauge Misc 1-10 directed ity o f 00:00: Medical Branch atorvastati Yes 40mg Take 1 Univ ers n 40 mg 1-10 tablet by ity of tablet 00:00: mouth at [place] 00 bedtime. Medical Branch pen needle, Yes 1{box} 1 Box 4 U nivers diabetic 32 1-10 (four) ity of gauge x 00:00: times [place] 04/09" Ndle 00 daily. Medical Branch lancets 31 Yes Use as Unive rs gauge Misc 1-10 directed ity o f 00:00: 00 Medical Branch atorvastati Yes 40mg Take 1 Univ ers n 40 mg 1-10 tablet by ity of tablet 00:00: mouth at [place] 00 bedtime. Medical Branch pen needle, Yes 1{box} 1 Box 4 U nivers diabetic 32 1-10 (four) ity of gauge x 00:00: times [place] 04/09" Ndle 00 daily. Medical Branch lancets Yes Use as Unive rs gauge Misc 1-10 directed ity o f 00:00: 00 Medical Branch atorvastati Yes 40mg Take 1 Univ ers n 40 mg 1-10 tablet by ity of tablet 00:00: mouth at 00 bedtime. Medical Branch pen needle, Yes 1{box} 1 Box 4 U nivers diabetic 32 1-10 (four) ity of gauge x 00:00: times 04/09" Ndle 00 daily. Medical Branch lancets 31 Yes Use as Unive rs gauge Misc 1-10 directed ity o f 00:00: 00 Medical Branch atorvastati Yes 40mg Take 1 Univ ers n 40 mg 1-10 tablet by ity of tablet 00:00: mouth at 00 bedtime. Medical Branch pen needle, Yes 1{box} 1 Box 4 U nivers diabetic 32 1-10 (four) ity of gauge x 00:00: times [place] /" Ndle 00 daily. Medical Branch lancets 31 Yes Use as Unive rs gauge Misc 1-10 directed ity o f 00:00: Medical Branch atorvastati Yes 40mg Take 1 Univ ers n 40 mg 1-10 tablet by ity of tablet 00:00: mouth at 00 bedtime. Medical Branch pen needle, Yes 1{box} 1 Box 4 U nivers diabetic 32 1-10 (four) ity of gauge x 00:00: times [place] 04/09" Ndle 00 daily. Medical Branch lancets 31 Yes Use as Unive rs gauge Misc 1-10 directed ity o f 00:00: 00 Medical Branch atorvastati Yes 40mg Take 1 Univ ers n 40 mg 1-10 tablet by ity of tablet 00:00: mouth at 00 bedtime. Medical Branch pen needle, Yes 1{box} 1 Box 4 U nivers diabetic 32 1-10 (four) ity of gauge x 00:00: times 04/09" Ndle 00 daily. Medical Branch lancets 31 Yes Use as Unive rs gauge Misc 1-10 directed ity o f 00:00: 00 Medical Branch atorvastati Yes 40mg Take 1 Univ ers n 40 mg 1-10 tablet by ity of tablet 00:00: mouth at 00 bedtime. Medical Branch pen needle, Yes 1{box} 1 Box 4 U nivers diabetic 32 1-10 (four) ity of gauge x 00:00: times 04/09" Ndle 00 daily. Medical Branch lancets 31 Yes Use as Unive rs gauge Misc 1-10 directed ity o f 00:00: 00 Medical Branch atorvastati Yes 40mg Take 1 Univ ers n 40 mg 1-10 tablet by ity of tablet 00:00: mouth at 00 bedtime. Medical Branch pen needle, Yes 1{box} 1 Box 4 U nivers diabetic 32 1-10 (four) ity of gauge x 00:00: times 04/09" [place] 00 daily. Medical Branch lancets 31 Yes Use as Unive rs gauge Misc 1-10 directed ity o f 00:00: Medical Branch atorvastati 0 Yes 40mg Take 1 Univ ers n 40 mg 1-10 tablet by ity of tablet 00:00: mouth at 00 bedtime. Medical Branch pen needle, Yes 1{box} 1 Box 4 U nivers diabetic 32 1-10 (four) ity of gauge x 00:00: times 04/09" Ndle 00 daily. Medical Branch lancets 31 Yes Use as Unive rs gauge Misc 1-10 directed ity o f 00:00: 00 Medical Branch atorvastati Yes 40mg Take 1 Univ ers n 40 mg 1-10 tablet by ity of tablet 00:00: mouth at 00 bedtime. Medical Branch pen needle, Yes 1{box} 1 Box 4 U nivers diabetic 32 1-10 (four) ity of gauge x 00:00: times [place] 04/09" Ndle 00 daily. Medical Branch lancets 31 Yes Use as Unive rs gauge Misc 1-10 directed ity o f 00:00: 00 Medical Branch atorvastati Yes 40mg Take 1 Univ ers n 40 mg 1-10 tablet by ity of tablet 00:00: mouth at 00 bedtime. Medical Branch pen needle, Yes 1{box} 1 Box 4 U nivers diabetic 32 1-10 (four) ity of gauge x 00:00: times 04/09" [place] 00 daily. Medical Branch lancets 31 Yes Use as Unive rs gauge Misc 1-10 directed ity o f 00:00: 00 Medical Branch atorvastati Yes 40mg Take 1 Univ ers n 40 mg 1-10 tablet by ity of tablet 00:00: mouth at 00 bedtime. Medical Branch pen needle, Yes 1{box} 1 Box 4 U nivers diabetic 32 1-10 (four) ity of gauge x 00:00: times [place] 04/09" Ndle 00 daily. Medical Branch lancets 31 Yes Use as Unive rs gauge Misc 1-10 directed ity o f 00:00: 00 Medical Branch atorvastati Yes 40mg Take 1 Univ ers n 40 mg 1-10 tablet by ity of tablet 00:00: mouth at 00 bedtime. Medical Branch pen needle, Yes 1{box} 1 Box 4 U nivers diabetic 32 1-10 (four) ity of gauge x 00:00: times [place] /" Ndle 00 daily. Medical Branch lancets 31 Yes Use as Unive rs gauge Misc 1-10 directed ity o f 00:00: Medical Branch atorvastati Yes 40mg Take 1 Univ ers n 40 mg 1-10 tablet by ity of tablet 00:00: mouth at [place] 00 bedtime. Medical Branch pen needle, Yes 1{box} 1 Box 4 U nivers diabetic 32 1-10 (four) ity of gauge x 00:00: times 04/09" [place] 00 daily. Medical Branch lancets 31 Yes Use as Unive rs gauge Misc 1-10 directed ity o f 00:00: 00 Medical Branch atorvastati Yes 40mg Take 1 Univ ers n 40 mg 1-10 tablet by ity of tablet 00:00: mouth at [place] 00 bedtime. Medical Branch pen needle, Yes 1{box} 1 Box 4 U nivers diabetic 32 1-10 (four) ity of gauge x 00:00: times 04/09" N[place] 00 daily. Medical Branch lancets 31 Yes Use as Unive rs gauge Misc 1-10 directed ity o f 00:00: 00 Medical Branch atorvastati Yes 40mg Take 1 Univ ers n 40 mg 1-10 tablet by ity of tablet 00:00: mouth at [place] 00 bedtime. Medical Branch pen needle, Yes 1{box} 1 Box 4 U nivers diabetic 32 1-10 (four) ity of gauge x 00:00: times 04/09" Nd 00 daily. Medical Branch lancets 31 Yes Use as Unive rs gauge Misc 1-10 directed ity o f 00:00: 00 Medical Branch acetaminoph 2020- No 1{tbl} Take 1 U nivers en-codeine -10 12-11 tablet by ity of (TYLENOL-CO 00:00: 00:00 [place] DEINE #3) 00 :00 every 4 Medical 300-30 mg (four) Branch tablet hours as needed for Pain (scale 7-10). insulin NPH 2020- No 27U inject 27 Univers 100 unit/mL -10 12-11 Units ity of injection 00:00: 00:00 under the [place] 00 :00 skin every Medical morning. Branch insulin NPH 2020- No 22U inject 22 Univers 100 unit/mL -10 12-11 Units ity of injection 00:00: 00:00 under the [place] 00 :00 skin every Medical evening. Branch insulin 2020- No 15U inject 15 Univ ers regular 04-13- Units ity of human 100 00:00: 00:00 under [place] unit/mL 00 :00 skin 2 Medical injection (two) Branch times daily before breakfast and dinner. Vital Signs Vital Name Observation Time Observation Value Comments Source Body height 2020-04-22 15:51:00 172.7 cm [facility] Body weight 2020-04-22 15:51:00 143.79 kg Universi ty [facility] BMI 2020-04-22 15:51:00 48.20 kg/m2 [facility]i ty [facility] Body height 2020-03-25 17:05:00 172.7 cm [facility]i ty of [facility] Body weight 2020-03-25 17:05:00 143.79 kg Universi ty [facility] BMI 2020-03-25 17:05:00 48.20 kg/m2 [facility]i ty of [facility] Body height 2020-03-18 15:23:00 172.7 cm Universi ty of [facility] Body weight 2020-03-18 15:23:00 143.79 kg [facility]i ty of [facility] BMI 2020-03-18 15:23:00 48.20 kg/m2 Universi ty [facility] Systolic blood 2020-03-14 17:53:00 134 mm[Hg] Univer sity of pressure [facility] Diastolic blood 2020-03-14 17:53:00 87 mm[Hg] Unive rsity of [facility] Heart rate 2020-03-14 17:53:00 80 /min Universi ty [facility] Body temperature 2020-03-14 17:53:00 36.44 [place] [facility] 2020-03-14 17:53:00 18 /min [facility] Oxygen saturation in 2020-03-14 17:53:00 95 /min [facility] Arterial blood by [facility] Pulse oximetry Branch Body weight 2020-03-03 19:00:00 144 kg Universi ty [facility] BMI 2020-03-03 19:00:00 48.27 kg/m2 Universi ty [facility] Body height 2020-03-02 06:58:[address] [facility] Procedures Procedure Date / Time Performing Clinician Source Performed EXTERNAL PROVIDER RECORDS 2021-11-30 05:01:00 Doctor Unassigned, [facility] Name [facility] EXTERNAL PROVIDER RECORDS 2020-03-26 06:01:00 Doctor Unassigned, [facility] Name [facility] EXTERNAL PROVIDER RECORDS 2020-03-15 06:01:00 Doctor Unassigned, [facility] Name [facility] POCT GLUCOSE (AUTOMATED) 2020-03-14 18:30:00 Tam Nelson [facility] POCT GLUCOSE (AUTOMATED) 2020-03-14 14:52:00 Tam Nelson [facility] BASIC METABOLIC PANEL (NA, 2020-03-14 10:15[facility], CO2, GLUCOSE, BUN, Medica l Branch CREATININE, [place]) CBC WITH DIFF 2020-03-14 10:15:00 Nelda Zamudio [facility] [place] POCT GLUCOSE (AUTOMATED) 2020-03-14 03:21:00 Tam Nelson [facility] POCT GLUCOSE (AUTOMATED) 2020-03-14 00:22:00 [facility] 2020-03-13 22:18:00 Tam Nelson [facility] POCT GLUCOSE (AUTOMATED) 2020-03-13 18:32:00 [facility]) 2020-03-13 14:44:00 Tam Nelson [facility] BASIC METABOLIC PANEL (NA, 2020-03-13 10:28:00 [facility], CO2, GLUCOSE, BUN, Medica l Branch CREATININE, CA) CBC WITH DIFF 2020-03-13 10:28:00 Nelda Zamudio [facility] [place] POCT GLUCOSE (AUTOMATED) 2020-03-13 04:03:00 [facility]) 2020-03-13 00:22:00 [facility]) 2020-03-12 19:19:00 [facility] DE[facility] LOWER 2020-03-12 14:42:00 [place], Louie [facility] EXTREMITY [facility] TOE AMPUTATION 2020-03-12 14:42:00 Richardson Louie [facility] POCT GLUCOSE (AUTOMATED) 2020-03-12 13:29[facility]EL (NA, 2020-03-12 11:50:00 [facility] CL, CO2, GLUCOSE, BUN, Medica l Branch CREATININE, CA) CBC WITH DIFF 2020-03-12 11:50:00 Nelda Zamudio [facility] EXTRA TUBE LT. BLUE 2020-03-12 11:50:00 Tam Nelson [facility] POCT GLUCOSE (AUTOMATED) 2020-03-12 10:16:00 Tam Nelson [facility] POCT GLUCOSE (AUTOMATED) 2020-03-12 05:53:00 Tam Nelson [facility] POCT GLUCOSE (AUTOMATED) 2020-03-12 02:43:00 Tam Nelson [facility] POCT GLUCOSE (AUTOMATED) 2020-03-12 00:05:00 Tam Nelson [facility] POCT GLUCOSE (AUTOMATED) 2020-03-11 18:28:[facility] 2020-03-11 14:10[facility]00 [facility]) 2020-03-11 10:44:00 Tam Nelson [facility] BASIC METABOLIC PANEL (NA, 2020-03-11 10:39:00 Nelda Zamudio [facility] K, CL, CO2, GLUCOSE, BUN, Medica l Branch CREATININE, CA) CBC WITH DIFF 2020-03-11 10:39:00 Nelda Zamudio [facility] POCT GLUCOSE (AUTOMATED) 2020-03-11 05:51[facility]00 [facility]) 2020-03-11 02:08:00 [facility]) 2020-03-11 00:12:00 [facility] ([facility]OMATED) 2020-03-10 18:28:00 Tam Nelson [facility] URINALYSIS 2020-03-10 16:00:00 Nelda Zamudio [facility] PROTEIN CREAT RATIO URINE 2020-03-10 16:00:00 [facility] TOTAL [facility]OTEIN, URINE 2020-03-10 16:00:00 Nelda Zamudio [facility] UREA NITROGEN, URINE 2020-03-10 16:00:00 Nelda Zamudio [facility] SODIUM, URINE RANDOM 2020-03-10 16:00:00 Nelda Zamudio [facility] POCT GLUCOSE (AUTOMATED) 2020-03-10 14:09:00 Tam Nelson [facility] POCT GLUCOSE (AUTOMATED) 2020-03-10 10:24:00 Tam Nelson [facility] BASIC METABOLIC PANEL (NA, 2020-03-10 10:10:[address] [facility] K, CL, CO2, GLUCOSE, BUN, Medica l Branch CREATININE, CA) CBC WITH DIFF 2020-03-10 10:10:00 Nelda Zamudio [facility] POCT GLUCOSE (AUTOMATED) 2020-03-10 07:31:00 Tam Nelson [facility] POCT GLUCOSE (AUTOMATED) 2020-03-10 03:45:00 [facility] ([facility]OMATED) 2020-03-10 00:21:00 [facility] PO[facility] (AUTOMATED) 2020-03-09 20:22:00 Tam Nelson [facility] TISSUE 2020-03-09 16:44:30 Rachel Sandoval [facility] CULTURE(AEROBIC/ANAEROBIC) Medic al Branch FOOT DEBRIDEMENT 2020-03-09 15:51:00 [facility]) 2020-03-09 14:03:00 Tam Nelson [facility] ALBUMIN 2020-03-09 11:50:00 Lizz Nelda [facility] BASIC METABOLIC PANEL (NA, 2020-03-09 11:50:[address] [facility] K, CL, CO2, GLUCOSE, BUN, Medica l Branch CREATININE, CA) CBC WITH DIFF 2020-03-09 11:50:00 Nelda Zamudio [facility] POCT GLUCOSE (AUTOMATED) 2020-03-09 02:58:00 Tam Nelson [facility] POCT GLUCOSE (AUTOMATED) 2020-03-09 00:32:00 Tam Nelson [facility] POCT GLUCOSE (AUTOMATED) 2020-03-08 20:08:00 Tam Nelson [facility] POCT GLUCOSE (AUTOMATED) 2020-03-08 14:47:00 Tam Nelson [facility] acute [facility] COVID-19 (ID NOW RAPID 2020-03-08 14:44:00 [facility] TESTING) Medical Branch LAB ONLY COVID 2020-03-08 14:44:00 [facility] BASIC METABOLIC PANEL (NA, 2020-03-08 13:15:[address] [facility] K, CL, CO2, GLUCOSE, BUN, Medica l Branch CREATININE, CA) CBC WITH DIFF 2020-03-08 13:15:00 Nelda Zamudio [facility] POCT GLUCOSE (AUTOMATED) 2020-03-08 03:17:00 Tam Nelson [facility] POCT GLUCOSE (AUTOMATED) 2020-03-08 00:25:00 Tam Nelson [facility] POCT GLUCOSE (AUTOMATED) 2020-03-07 23:04:00 Tam Nelson U [facility] DEBRIDEMENT LOWER 2020-03-07 17:45:00 Louie Richardson [facility] EXTREMITY [facility] Branch RAY RESECTION 2020-03-07 17:45:00 Louie Richardson [facility] POCT GLUCOSE (AUTOMATED) 2020-03-07 17:27:00 Tam Nelson niverskate [facility] POCT GLUCOSE (AUTOMATED) 2020-03-07 13:03:00 [facility] BASIC METABOLIC PANEL (NA, 2020-03-07 11:29:00 [facility]el[facility] K, CL, CO2, GLUCOSE, BUN, Medica l Branch CREATININE, CA) CBC WITH DIFF 2020-03-07 11:29:00 Mateo Mccarthy [facility] POCT GLUCOSE (AUTOMATED) 2020-03-07 04:19:00 Tam Nelsonerskate [facility] POCT GLUCOSE (AUTOMATED) 2020-03-07 01:43:00 Tam Nelson niverskate [facility] POCT GLUCOSE (AUTOMATED) 2020-03-06 23:39:00 Tam Nelson [facility] POCT GLUCOSE (AUTOMATED) 2020-03-06 18:20:00 Tam Nelson niverskate [facility] POCT GLUCOSE (AUTOMATED) 2020-03-06 13:44:00 Tam Nelson niversity [facility] POCT GLUCOSE (AUTOMATED) 2020-03-06 12:06:00 [facility] POCT GLUCOSE (AUTOMATED) 2020-03-06 06:59:00 Tam Nelson [facility] BASIC METABOLIC PANEL (NA, 2020-03-06 06:20:00 [facility] [place] K, CL, CO2, GLUCOSE, BUN, Medica l Branch CREATININE, CA) CBC WITH DIFF 2020-03-06 06:20:00 Mateo Mccarthy [facility] POCT GLUCOSE (AUTOMATED) 2020-03-06 02:20:00 Tam Nelson [facility] POCT GLUCOSE (AUTOMATED) 2020-03-05 21:24:00 Tam Nelson [facility] AFB CULTURE 2020-03-05 17:58:03 Louie Richardson [facility] FUNGUS (ROUTINE) CULTURE 2020-03-05 17:58:03 Louie Richardson [facility] ASPIRATE OR ABSCESS 2020-03-05 17:58:00 Tam Nelson [facility] CULTURE(AEROBIC/ANAEROBIC) Medic al Branch FUNGUS (ROUTINE) CULTURE 2020-03-05 17:52:35 Richardson, Louie Hernandez [facility] TISSUE 2020-03-05 17:52:35 Richardson, Louie Hernandez [facility] CULTURE(AEROBIC/ANAEROBIC) Medic al Branch TOE AMPUTATION 2020-03-05 16:55:00 Richardson, Louie Hernandez [facility] POCT GLUCOSE (AUTOMATED) 2020-03-05 13:22:00 [facility] BASIC METABOLIC PANEL (NA, 2020-03-05 11:05:00 Nelda Zamudio [facility] K, CL, CO2, GLUCOSE, BUN, Medica l Branch CREATININE, CA) CBC WITH DIFF 2020-03-05 11:05:00 Mateo Mccarthy [facility] POCT GLUCOSE (AUTOMATED) 2020-03-05 10:53:00 [facility] POCT GLUCOSE (AUTOMATED) 2020-03-05 05:24:00 Tam Nelson niversity [facility] US RETROPERITONEAL LIMITED 2020-03-05 04:35:00 Nelda Zamudio niversity [facility] POCT GLUCOSE (AUTOMATED) 2020-03-04 23:49:00 Tam Nelson U niversity [facility] POCT GLUCOSE (AUTOMATED) 2020-03-04 21:18:00 Tam Nelson niversity [facility] POCT GLUCOSE (AUTOMATED) 2020-03-04 18:35:00 Tam Nelson niversity of [facility] POCT GLUCOSE (AUTOMATED) 2020-03-04 13:42:00 Tam Nelson niversity [facility] POCT GLUCOSE (AUTOMATED) 2020-03-04 10:21:00 Tam Nelsonersity [facility] C-REACTIVE PROTEIN 2020-03-04 08:27:00 Joaquim Suero [facility] BASIC METABOLIC PANEL (NA, 2020-03-04 08:27:00 Mateo Mccarthy [facility] [place] K, CL, CO2, GLUCOSE, BUN, Medica l Branch CREATININE, CA) CBC WITH DIFF 2020-03-04 08:27:[address] [facility] POCT GLUCOSE (AUTOMATED) 2020-03-04 06:37:00 Tam Nelson [facility] POCT GLUCOSE (AUTOMATED) 2020-03-04 02:20:00 Ritchie Pickard [facility] BASIC METABOLIC PANEL (NA, 2020-03-03 22:58:00 April Wiley U [facility] K, CL, CO2, GLUCOSE, BUN, Medica l Branch CREATININE, CA) POCT GLUCOSE (AUTOMATED) 2020-03-03 22:49:00 Ritchie Pickard [facility] POCT GLUCOSE (AUTOMATED) 2020-03-03 20:14:00 Ritchie Pickard [facility] POCT GLUCOSE (AUTOMATED) 2020-03-03 17:46:00 Ritchie Pickard [facility] POCT GLUCOSE (AUTOMATED) 2020-03-03 12:09:00 Ritchie Pickard [facility] COVID-19 (MOLECULAR 2020-03-03 11:57:00 Mateo Mccarthy [facility] NUCLEIC ACID AMPLIFICATION) LAB ONLY COVID 2020-03-03 11:57:00 Shari [facility] POCT GLUCOSE (AUTOMATED) 2020-03-03 09:43:00 Ritchie Pickard [facility] BASIC METABOLIC PANEL (NA, 2020-03-03 09:42:[address] [facility] K, CL, CO2, GLUCOSE, BUN, Medica l Branch CREATININE, CA) SEDIMENTATION RATE 2020-03-03 09:42:00 Joaquim Suero [facility] CBC WITH DIFF 2020-03-03 09:42:[address] [facility] BASIC METABOLIC PANEL (NA, 2020-03-03 05:16:[address] [facility] K, CL, CO2, GLUCOSE, BUN, Medica l Branch CREATININE, CA) POCT GLUCOSE (AUTOMATED) 2020-03-03 05:13:00 Ritchie Pickard [facility] POCT GLUCOSE (AUTOMATED) 2020-03-03 02:01:00 Ritchie Pickard [facility] BASIC METABOLIC PANEL (NA, 2020-03-03 00:14:00 Aj Suero [facility] K, CL, CO2, GLUCOSE, BUN, Medica l Branch CREATININE, CA) POCT GLUCOSE (AUTOMATED) 2020-03-03 00:09:00 Ritchie Pickard [facility] POCT GLUCOSE (AUTOMATED) 2020-03-02 23:17:00 Ritchie Pickard [facility] POCT GLUCOSE (AUTOMATED) 2020-03-02 22:25:00 Ritchie Pickard [facility] POCT GLUCOSE (AUTOMATED) 2020-03-02 21:10:00 Ritchie Pickard [facility] POCT GLUCOSE (AUTOMATED) 2020-03-02 19:58:00 Ritchie Pickard [facility] BASIC METABOLIC PANEL (NA, 2020-03-02 19:56:[address] [facility] K, CL, CO2, GLUCOSE, BUN, Medica l Branch CREATININE, CA) POCT GLUCOSE (AUTOMATED) 2020-03-02 18:57:00 Ritchie Pickard [facility] MR FOOT RIGHT WO CONTRAST 2020-03-02 18:50:08 Carl Chambers [facility] MR ANKLE RIGHT WO CONTRAST 2020-03-02 18:46:45 Carl Chambers [facility] POCT GLUCOSE (AUTOMATED) 2020-03-02 16:07:00 Ritchie Pickard [facility] POCT GLUCOSE (AUTOMATED) 2020-03-02 15:13:00 Ritchie Pickard [facility] POCT GLUCOSE (AUTOMATED) 2020-03-02 13:52:00 Ritchie Pickard [facility] POCT GLUCOSE (AUTOMATED) 2020-03-02 13:02:00 Ritchie Pickard [facility] POCT GLUCOSE (AUTOMATED) 2020-03-02 12:01:00 Ritchie Pickard [facility] C-REACTIVE PROTEIN 2020-03-02 11:16:00 Mateo Mccarthy [facility] BASIC METABOLIC PANEL (NA, 2020-03-02 11:16:00 Shari, Mateo U [facility] K, CL, CO2, GLUCOSE, BUN, Medica l Branch CREATININE, CA) GLYCOSYLATED HEMOGLOBIN 2020-03-02 11:16:00 Mateo Mccarthy [facility] (A1C) [facility] POCT GLUCOSE (AUTOMATED) 2020-03-02 11:06:00 Ritchie Pickard [facility] POCT GLUCOSE (AUTOMATED) 2020-03-02 09:58:00 Ritchie Pickard [facility] URINALYSIS 2020-03-02 09:51:[address] [facility] URINE CULTURE 2020-03-02 09:51:[address] [facility] OSMOLALITY SERUM 2020-03-02 09:13:00 Mateo Mccarthy [facility] XR CHEST 1 VW 2020-03-02 08:52:[address] [facility] XR FOOT 3+ VW RIGHT 2020-03-02 08:52:[address] [facility] BLOOD CULTURE SCREEN 2020-03-02 07:51:00 Mateo Mccarthy [facility] BLOOD CULTURE SCREEN 2020-03-02 07:50:00 Mateo Mccarthy [facility] MRSA / MSSA SCREEN BY PCR, 2020-03-02 07:49:00 Mateo Mccarthy [facility] 2020-03-02 07:47:00 Mateo Mccarthy [facility] MAGNESIUM 2020-03-02 07:47:00 Mateo Mccarthy [facility] BETA HYDROXY-BUTYRATE 2020-03-02 07:47:00 Mateo Mccarthy [facility] COMP. METABOLIC PANEL 2020-03-02 07:47:00 Mateo Mccarthy [facility] ([id number]) [facility] SEDIMENTATION RATE 2020-03-02 07:47:00 Mateo Mccarthy [facility] CBC WITH DIFF 2020-03-02 07:47:00 Mateo Mccarthy [facility] PROTHROMBIN TIME / INR 2020-03-02 07:47:[address] [facility] ACTIVATED PARTIAL THRMPLAS 2020-03-02 07:47:00 Mateo Mccarthy [facility] AC PANEL 20 + LACTIC ACID 2020-03-02 07:45:00 Mateo Mccarthy iverskate [facility] POCT GLUCOSE (AUTOMATED) 2020-03-02 07:16:00 Ritchie Pickard [facility] Encounters Start End Encounter Admission Attending Care Care Encounter Source Date/Time Date/Time Type Type Clinicians Facility Department ID 2021-09-16 Outpatient [facility] [id number] [facility] 11:53:10 [id number] [facility] 2021-03-06 Inpatient [place], [facility] [id number] [facility] 09:30:00 Liseth 40 2022-03-06 2022-03-09 Inpatient ER [facility] [id number] 10:29:00 16:22:00 INESSA [id number] [facility] 2022-03-05 2022-03-05 Inpatient ER [facility] [id number] [place] 23:21:00 20:07:00 INESSA [id number] [facility] 2022-01-14 2022-01-14 [facility] [id number] Univers 08:30:00 08:30:00 [facility] 2022-01-07 2022-01-07 Outpatient Jaydon [facility] [id number] Univers 10:30:00 10:30:00 [facility] 2021-12-31 2021-12-31 Outpatient ROMAIN PRESTON [facility] [id number] [place] 10:13:00 10:13:00 JANET [id number] [facility] 2021-11-30 2021-11-30 Orders Doctor DAWSON [id number] Univers 00:00:00 00:00:00 Only Unassigned, IRA [id number] ity of [place] [employer] [employer] [facility] 4.2.7.2.686 Adriano as [phone] [address] 2021-07-02 2021-07-02 Outpatient ROMAIN PRESTON [facility] [id number] [place] 10:18:00 10:18:00 JANET [id number] da [facility] 2021-06-16 2021-06-22 Inpatient ROMAIN INFANTE, [facility] MED [id number] [place] 09:44:00 18:10:00 RICARDO -[id number] evans GALVAN [facility] 2021-03-18 2021-03-18 Outpatient ROMAIN HANEY, [facility] [id number] [place] 10:51:00 10:51:00 LISETH -[id number] [facility] 2020-12-22 2020-12-22 Outpatient KOVACEV_T [facility] [place] 04:11:00 04:11:00 [id number] [facility] 2020-11-27 2020-11-27 Outpatient KOVACEV_T [facility] [place] 09:50:00 09:50:00 0826 [facility] 2020-11-03 2020-11-03 Patient Luci Roberts [id number] Univers 00:00:00 00:00:00 Outreach Carl Wade [id number] it[phone] [address] Branch 2020-10-31 2020-10-31 Patient Gabby Burroughs Luci 1.2.840.114 [id number] Univers 00:00:00 00:00:00 Outreach Jc Wade [id number] i [place] [phone] [place] [address] Branch 2020-10-16 2020-10-16 Patient Luci Roberts [id number] Univers 00:00:00 00:00:00 Outreach Carl Dixony [id number] [place] [phone] [place] [address] Branch 2020-10-13 2020-10-13 Patient Luci Roberts 1.2.840.114 [id number] Univers 00:00:00 00:00:00 Outreach Carl Dixony [id number] [place] [phone] [address] 2020-10-07 2020-10-07 Patient Alejandra Luci 1.2.840.114 [id number] Univers 00:00:00 00:00:00 Outreach Carl Paredes Wade [id number] [place] [phone] [address] 2020-09-22 2020-09-22 Patient Alvarado Luci 1.2.840.114 [id number] Univers 00:00:00 00:00:00 Outreach Jenn E [place] [id number] [place] [phone] [address] 2020-08-25 2020-08-25 Patient Alejandra Luci 1.2.840.114 [id number] Univers 00:00:00 00:00:00 Outreach Carl Paredes Wade 350.1.13.10 [place] [id number] [address] 2020-08-18 2020-08-18 Patient Alejandra Luci 1.2.840.114 [id number] Univers 00:00:00 00:00:00 Outreach Carl Paredes Wade [id number] [place] [phone] [address] 2020-08-08 2020-08-08 Patient AlvaradoLuci medina 1.2.840.114 [id number] Univers 00:00:00 00:00:00 Outreach Jenn E Wade 350.1.13.10 [place] [phone] [address] 2020-07-21 2020-07-21 Patient AlejandraLuci 1.2.840.114 [id number] Univers 00:00:00 00:00:00 Outreach Carl Reggie Dixony 350.1.13.10 [place] [phone] [facility] 403 Branch 2020-07-16 2020-07-16 Patient Luci Roberts 1.2.840.114 [id number] Univers 00:00:00 00:00:00 Outreach Carl Reggie Wade 350.1.13.10 [place] [phone] [place] [address] Branch 2020-07-15 2020-07-15 Patient AlvaradoTrisha medinakole 1.2.840.114 [id number] Univers 00:00:00 00:00:00 Outreach Jenn E Wade 350.1.13.10 i [place] [phone] [place] [address] Branch 2020-07-14 2020-07-14 Patient Gabby Burroughskole 1.2.840.114 [id number] Univers 00:00:00 00:00:00 Outreach E Wade 350.1.13.10 i [place] [phone] [place] [address] Branch 2020-07-04 2020-07-04 Patient Luci Roberts 1.2.840.114 [id number] Univers 00:00:00 00:00:00 Outreach Carl Paredes Mauro 350.1.13.10 [place] [id number] [place] [address] Branch 2020-06-30 2020-06-30 Patient Gabby Burroughskole 1.2.840.114 [id number] Univers 00:00:00 00:00:00 Outreach E Wade 350.1.13.10 [place] [phone] [place] [address] Branch 2020-06-19 2020-06-19 Patient JOHN Angelo 1.2.840.114 [id number] Univers 00:00:00 00:00:00 Outreach Tres ARGUELLO 350.1.13.10 i ty [place] [phone] Nm dical 388 Branch 2020-05-27 2020-05-27 [facility] [id number] Univers 15:30:00 15:30:00 LOUIE ity of [facility] 2020-05-26 2020-05-26 Patient Alvarado Luci 1.2.840.114 [id number] Univers 00:00:00 00:00:00 Outreach Jenn E Wade 350.1.13.10 [place] [phone] [facility] 403 Branch 2020-05-26 2020-05-26 [facility] 1.2.840.114 [id number] Univers 00:00:00 00:00:00 Louie A PRIMARY 350.1.13.10 [place] [phone] Nm dical 198 Branch 2020-05-22 2020-05-22 Patient Manjeet Gabby Luci 1.2.840.114 [id number] Univers 00:00:00 00:00:00 Outreach E Wade 350.1.13.10 i [place] [id number] [place] [address] Branch 2020-05-20 2020-05-20 [facility] [id number] Univers 09:45:00 09:45:00 LOUIE ity [facility] 2020-05-02 2020-05-02 Patient Gabby Burroughs Luci 1.2.840.114 [id number] Univers 00:00:00 00:00:00 Outreach E Wade 350.1.13.10 i [place] [phone] [place] [address] Branch 2020-04-30 2020-04-30 Patient Gabby Burroughs Luci 1.2.840.114 [id number] Univers 00:00:00 00:00:00 Outreach E Wade 350.1.13.10 i [place] [phone] [place] [address] Branch 2020-04-22 2020-04-22 [facility] 1.2.840.114 [id number] Univers 09:42:35 09:57:35 Visit Louie A HEALTH 350.1.13.10 [place] [phone] [facility] Primary & [address] Branch Specialty Care 2020-04-22 2020-04-22 Outpatient R DEBRA, [facility] [id number] Univers 09:30:00 09:30:00 LOUIE ity of [facility] 2020-04-14 2020-04-14 Patient Luci Childers 1.2.840.114 [id number] Univers 00:00:00 00:00:00 Outreach Jenn E Wade 350.1.13.10 i ty [place] [phone] [place] [address] Branch 2020-04-14 2020-04-14 Telephone De[facility] 1.2.840.114 [id number] Univers 00:00:00 00:00:00 Louie Mary HEALTH 350.1.13.10 [place] [phone] [facility] Primary & 198 Branch Specialty Care 2020-04-03 2020-04-03 Patient Gabby Burroughs Luci 1.2.840.114 [id number] Univers 00:00:00 00:00:00 Outreach E Wade 350.1.13.10 [place] [id number] [address] 2020-04-02 2020-04-02 Patient Gabby Burroughs Luci 1.2.840.114 [id number] Univers 00:00:00 00:00:00 Outreach E Wade 350.1.13.10 [place] [phone] [address] 2020-04-01 2020-04-01 Patient Gabby Burroughs Luci 1.2.840.114 [id number] Univers 13:23:08 14:23:08 Outreach E Wade 350.1.13.10 [place] [id number] [address] 2020-03-31 2020-03-31 Patient Gabby Burroughs 1.2.840.114 [id number] Univers 00:00:00 00:00:00 Outreach E Wade 350.1.13.10 [place] [phone] [facility] [address] [place] 2020-03-29 2020-03-29 Nurse Krupa Moise 1.2.840.114 [id number] Univers 00:00:00 00:00:00 Triage IRA 350.1.13.10 it y of [facility] 4.2.7.2.686 Adriano as [phone] [facility] 019 Branch 2020-03-26 2020-03-26 Orders Doctor EUNICE 1.2.840.114 [id number] Univers 00:00:00 00:00:00 Only Unassigned, IRA 350.1.13.10 ity of [place] [employer] [employer] HOSPITAL 4.2.7.2.686 Adriano as [phone] [facility] 009 Branch 2020-03-25 2020-03-25 Office [facility] 1.2.840.114 [id number] Univers 10:53:52 11:38:42 Visit Louie A HEALTH 350.1.13.10 [place] [facility] [phone] [facility] Primary & 198 Branch Specialty Care 2020-03-25 2020-03-25 Outpatient R [facility] [id number] Univers 11:15:00 11:15:00 LOUIE ity of [facility] 2020-03-25 2020-03-25 Patient Gabby Burroughs 1.2.840.114 [id number] Univers 00:00:00 00:00:00 Outreach E Wade 350.1.13.10 [place] [phone] [facility] 403 Branch 2020-03-21 2020-03-21 Telephone [facility] 1.2.840.114 [id number] Univers 00:00:00 00:00:00 Natalee F PRIMARY 350.1.13.10 [place] [phone] Nm dical [address] [place] 2020-03-18 2020-03-18 Office [facility] 1.2.840.114 [id number] Univers 09:01:03 09:42:18 Visit Louie Hernandez HEALTH 350.1.13.10 [place] [facility] [phone] [facility] Primary & [facility] Branch Specialty Care 2020-03-18 2020-03-18 [facility] [id number] Univers 09:00:00 09:00:00 LOUIE ity of [facility] 2020-03-17 2020-03-17 Patient Gabby Burroughs Luci 1.2.840.114 [id number] Univers 00:00:00 00:00:00 Outreach E Wade [id number] i [place] [phone] [address] 2020-03-17 2020-03-17 Transition Luci Montanez 1.2.840.114 [id number] Univers 00:00:00 00:00:00 of Care Yola Wade [id number] [place] [phone] [address] 2020-03-17 2020-03-17 Transition Luci Montanez 1.2.840.114 [id number] Univers 00:00:00 00:00:00 of Care Yola Wade [id number] [id number] [phone] [address] 2020-03-15 2020-03-15 Orders Doctor EUNICE 1.2.840.114 [id number] Univers 00:00:00 00:00:00 Only Unassigned, IRA [id number] ity of [place] [facility] [facility] 4.2.7.2.686 Adriano as [phone] [place] [address] Branch 2020-03-02 2020-03-14 Hospital Ritchie Pickard 1.2.84 0.114 [id number] Univers 00:54:00 17:11:00 Encounter Tam Nelson 350.1.13.1 0 ity [facility] 4.2.7.2.686 Adriano as [phone] [place] [address] Branch 2020-03-02 2020-03-14 Inpatient TAM [facility] [place] [id number] 00:54:00 17:11:00 [facility] 2017-06-29 2017-07-03 Inpatient DELORES PEREZ [facility] [id number] [place] 21:10:00 15:12:00 [id number] [facility] Results Test Description Test Time Test Comments Results Result Comments Source POCT GLUCOSE (AUTOMATED) 2020-03-14 18:32:00 Test Item Value Reference Range Interpretation Comme nts POCT GLU (test code = 1393550128) 135 mg/dL 70-110 H Lab Interpretation (test code = 90896-6) [facility] 14:59:00 Test Item Value Reference Range Interpretation Comments POCT GLU (test code = 5036745106) 115 mg/dL 70-110 H Lab Interpretation (test code = Abnormal 96023-1) [facility] WITH [id number] 11:22:00 Test Item Value Reference Range Interpretation Comments WBC (test code = See_Comment [Automated 6690-2) message] The sy stem which generated this result transmitted reference range : 4.20 - 10.70 10*3/?L. The reference range was not used to interpret this result as normal/abnormal . RBC (test code = See_Comment L [Automated 609-8) message] The sy stem which generated this result transmitted reference range : 4.26 - 5.52 10*6/?L. The reference range was not used to interpret this result as normal/abnormal . HGB (test code = 7.7 g/dL 12.2-16.4 L 718-7) HCT (test code = 23.6 % 38.4-49.3 L 4544-3) MCV (test code = 92.2 fL 81.7-95.6 787-2) MCH (test code = 30.1 pg 26.1-32.7 785-6) MCHC (test code = 32.6 g/dL 31.2-35 786-4) RDW-SD (test code = 39.6 fL 38.5-51.6 67478-0) RDW-CV (test code = 11.7 % 12.1-15.4 L 788-0) PLT (test code = See_Comment H [Automated 777-3) message] The sy stem which generated this result transmitted reference range : 150 - 328 10*3/ ?L. The reference r gato was not used to interpret this result as normal/abnormal . MPV (test code = 10.0 fL 9.8-13 85483-0) NRBC/100 WBC (test See_Comment [Automat ed code = 2118917634) message] The system which generated this result transmitted reference range : 0.0 - 10.0 /100 WBCs. The refer ence range was not u sed to interpret th is result as normal/abnormal . NRBC x10^3 (test code <0.01 See_Comment [Auto mated = 1667367727) message] The s ystem which generated this result transmitted reference range : 10*3/?L. The reference range was not used to interpret this result as normal/abnormal . GRAN MAT (NEUT) % 62.2 % (test code = 770-8) IMM GRAN % (test code 2.90 % = 2889653859) LYMPH % (test code = 26.1 % 736-9) MONO % (test code = 6.3 % 5905-5) EOS % (test code = 1.8 % 713-8) BASO % (test code = 0.7 % 706-2) GRAN MAT x10^3(ANC) 6.10 10*3/uL 1.99-6.95 (test code = 1756746182) IMM GRAN x10^3 (test 0.28 10*3/uL 0-0.06 H code = 8032260566) LYMPH x10^3 (test code 2.56 10*3/uL 1.09-3.23 = 731-0) MONO x10^3 (test code 0.62 10*3/uL 0.36-1.02 = 742-7) EOS x10^3 (test code = 0.18 10*3/uL 0.06-0.53 711-2) BASO x10^3 (test code 0.07 10*3/uL 0.01-0.09 = 704-7) Lab Interpretation Abnormal (test code = 87857-9) [facility] METABOLIC PANEL (NA, K, CL, CO2, GLUCOSE, BUN, CREATININE, CA)2020-03-14 10:58:00 Test Item Value Reference Range Interpretation Comments NA (test code = 135 mmol/L 135-145 7959618991) K (test code = 4.4 mmol/L 3.5-5 2221576209) CL (test code = 105 mmol/L 98-108 0398256492) CO2 TOTAL (test code = 25 mmol/L 23-31 4811791660) AGAP (test code = 2-16 9542972144) BUN (test code = 48 mg/dL 7-23 H 5647847123) GLUCOSE (test code = 108 mg/dL 70-110 8245387143) CREATININE (test code = 3.21 mg/dL 0.6-1.25 H 1929776661) CALCIUM (test code = 7.7 mg/dL 8.6-10.6 L 3891579354) eGFR Calculation mL/min/1.73m2 (Non-) (test code = 4212027258) eGFR Calculation mL/min/1.73m2 () (test code = 0151704155) JACOB (test code = JACOB) Association of Glomerular Filtration Rate (GFR) and Staging of Kidney Disease* + --+ --+ ------+| GFR (mL/min/1.73 m2) ?| With Kidney Damage ?| ?Without Kidney Damage+ --------+ --------+ +| ?>90 ?| ?Stage one ?| ? Normal ?+ ---+ ---+ -------+| ?60-89 ?| ?Stage two ?| ? Decreased GFR ? + --+ --+ ------+| ?30-59 ?| ?Stage three ?| ? Stage three ? + --+ --+ ------+| ?15-29 ?| ?Stage four ? | ? Stage four ?+ ---+ ---+ -------+| ?<15 (or dialysis) ? ?| ?Stage five ? | ? Stage five ?+ ---+ ---+ -------+ *Each stage assumes the associated GFR level has been in effect for at least three months. ?Stages 1 to 5, with or without kidney disease, indicate chronic kidney disease. Notes: Determination of stages one and two (with eGFR >59mL/min/1.73 m2) requires estimation of kidney damage for at least three months as defined by structural or functional abnormalities of the kidney, manifested by either:Pathological abnormalities or Markers of kidney damage (including abnormalities in the composition of the blood or urine or abnormalities in imaging tests). Lab Interpretation Abnormal (test code = 46119-3) [facility] GLUCOSE (AUTOMATED)2020-03-14 03:22:00 Test Item Value Reference Range Interpretation Comments POCT GLU (test code = 9290049386) 96 mg/dL 70-110 Lab Interpretation (test code = Normal 96851-0) [facility] GLUCOSE (AUTOMATED)2020-03-14 00:22:00 Test Item Value Reference Range Interpretation Comments POCT GLU (test code = 8937752742) 129 mg/dL 70-110 H Lab Interpretation (test code = Abnormal 51143-6) [facility] GLUCOSE (AUTOMATED)2020-03-13 22:19:00 Test Item Value Reference Range Interpretation Comments POCT GLU (test code = 6301713450) 111 mg/dL 70-110 H Lab Interpretation (test code = Abnormal 52838-6) [facility] GLUCOSE (AUTOMATED)2020-03-13 18:33:00 Test Item Value Reference Range Interpretation Comments POCT GLU (test code = 1867764168) 204 mg/dL 70-110 H Lab Interpretation (test code = Abnormal 26979-0) [facility] GLUCOSE (AUTOMATED)2020-03-13 14:47:00 Test Item Value Reference Range Interpretation Comments POCT GLU (test code = 0505303075) 236 mg/dL 70-110 H Lab Interpretation (test code = Abnormal 52634-7) [facility] CULTURE(AEROBIC/ANAEROBIC)2020-03-13 13:04:00 Test Item Value Reference Range Interpretation Comments TISSUE CULTURE (test No aerobic/anaerobic code = 78413-6) organisms isolated Gram stain (test code No PMNs or Mononuclear = 664-3) cells observed [facility] METABOLIC PANEL (NA, K, CL, CO2, GLUCOSE, BUN, CREATININE, CA)2020-03-13 11:53:00 Test Item Value Reference Range Interpretation Comments NA (test code = 134 mmol/L 135-145 L 4546296668) K (test code = 5.0 mmol/L 3.5-5 1038932475) CL (test code = 106 mmol/L 98-108 4227927179) CO2 TOTAL (test code = 24 mmol/L 23-31 3231269927) AGAP (test code = 2-16 6504342128) BUN (test code = 44 mg/dL 7-23 H 5030187960) GLUCOSE (test code = 233 mg/dL 70-110 H 0268198126) CREATININE (test code = 3.19 mg/dL 0.6-1.25 H 3510092953) CALCIUM (test code = 7.8 mg/dL 8.6-10.6 L 5766073979) eGFR Calculation mL/min/1.73m2 (Non-) (test code = 8080560404) eGFR Calculation mL/min/1.73m2 () (test code = 0841804746) JACOB (test code = JACOB) Association of Glomerular Filtration Rate (GFR) and Staging of Kidney Disease* + --+ --+ ------+| GFR (mL/min/1.73 m2) ?| With Kidney Damage ?| ?Without Kidney Damage+ --------+ --------+ +| ?>90 ?| ?Stage one ?| ? Normal ?+ ---+ ---+ -------+| ?60-89 ?| ?Stage two ?| ? Decreased GFR ? + --+ --+ ------+| ?30-59 ?| ?Stage three ?| ? Stage three ? + --+ --+ ------+| ?15-29 ?| ?Stage four ? | ? Stage four ?+ ---+ ---+ -------+| ?<15 (or dialysis) ? ?| ?Stage five ? | ? Stage five ?+ ---+ ---+ -------+ *Each stage assumes the associated GFR level has been in effect for at least three months. ?Stages 1 to 5, with or without kidney disease, indicate chronic kidney disease. Notes: Determination of stages one and two (with eGFR >59mL/min/1.73 m2) requires estimation of kidney damage for at least three months as defined by structural or functional abnormalities of the kidney, manifested by either:Pathological abnormalities or Markers of kidney damage (including abnormalities in the composition of the blood or urine or abnormalities in imaging tests). Lab Interpretation Abnormal (test code = 40203-9) [facility] WITH [id number] 11:31:00 Test Item Value Reference Range Interpretation Comments WBC (test code = See_Comment [Automated 6690-2) message] The sy stem which generated this result transmitted reference range : 4.20 - 10.70 10*3/?L. The reference range was not used to interpret this result as normal/abnormal . RBC (test code = See_Comment L [Automated 789-8) message] The sy stem which generated this result transmitted reference range : 4.26 - 5.52 10*6/?L. The reference range was not used to interpret this result as normal/abnormal . HGB (test code = 7.8 g/dL 12.2-16.4 L 718-7) HCT (test code = 24.0 % 38.4-49.3 L 4544-3) MCV (test code = 90.6 fL 81.7-95.6 787-2) MCH (test code = 29.4 pg 26.1-32.7 785-6) MCHC (test code = 32.5 g/dL 31.2-35 786-4) RDW-SD (test code = 38.5 fL 38.5-51.6 66561-7) RDW-CV (test code = 11.7 % 12.1-15.4 L 788-0) PLT (test code = See_Comment H [Automated 777-3) message] The sy stem which generated this result transmitted reference range : 150 - 328 10*3/ ?L. The reference r gato was not used to interpret this result as normal/abnormal . MPV (test code = 10.1 fL 9.8-13 01102-4) NRBC/100 WBC (test See_Comment [Automat ed code = 6521286391) message] The system which generated this result transmitted reference range : 0.0 - 10.0 /100 WBCs. The refer ence range was not u sed to interpret th is result as normal/abnormal . NRBC x10^3 (test code <0.01 See_Comment [Auto mated = 8057703519) message] The s ystem which generated this result transmitted reference range : 10*3/?L. The reference range was not used to interpret this result as normal/abnormal . GRAN MAT (NEUT) % 84.5 % (test code = 770-8) IMM GRAN % (test code 1.90 % = 4234347056) LYMPH % (test code = 8.7 % 736-9) MONO % (test code = 4.7 % 5905-5) EOS % (test code = 0.0 % 713-8) BASO % (test code = 0.2 % 706-2) GRAN MAT x10^3(ANC) 8.67 10*3/uL 1.99-6.95 H (test code = 5220030176) IMM GRAN x10^3 (test 0.19 10*3/uL 0-0.06 H code = 7757719744) LYMPH x10^3 (test code 0.89 10*3/uL 1.09-3.23 L = 731-0) MONO x10^3 (test code 0.48 10*3/uL 0.36-1.02 = 742-7) EOS x10^3 (test code = <0.03 0.06-0.53 L 711-2) BASO x10^3 (test code <0.03 0.01-0.09 = 704-7) Lab Interpretation Abnormal (test code = 63802-4) [facility] GLUCOSE (AUTOMATED)2020-03-13 04:31:00 Test Item Value Reference Range Interpretation Comments POCT GLU (test code = 5682492169) 265 mg/dL 70-110 H Lab Interpretation (test code = Abnormal 95879-2) [facility] GLUCOSE (AUTOMATED)2020-03-13 00:23:00 Test Item Value Reference Range Interpretation Comments POCT GLU (test code = 5647131693) 352 mg/dL 70-110 H Lab Interpretation (test code = Abnormal 13682-7) [facility] GLUCOSE (AUTOMATED)2020-03-12 19:20:00 Test Item Value Reference Range Interpretation Comments POCT GLU (test code = 8714788841) 251 mg/dL 70-110 H Lab Interpretation (test code = Abnormal 52164-3) [facility] (NA, K, CL, CO2, GLUCOSE, BUN, CREATININE, CA)2020-03-12 13:46:00 Test Item Value Reference Range Interpretation Comments NA (test code = 136 mmol/L 135-145 4295110846) K (test code = 5.0 mmol/L 3.5-5 6984839075) CL (test code = 107 mmol/L 98-108 6119534968) CO2 TOTAL (test code = 22 mmol/L 23-31 L 9636207789) AGAP (test code = 2-16 4235023120) BUN (test code = 36 mg/dL 7-23 H 3128521657) GLUCOSE (test code = 119 mg/dL 70-110 H 3257816050) CREATININE (test code = 3.04 mg/dL 0.6-1.25 H 7911456711) CALCIUM (test code = 7.8 mg/dL 8.6-10.6 L 1068596451) eGFR Calculation mL/min/1.73m2 (Non-) (test code = 9916797992) eGFR Calculation mL/min/1.73m2 () (test code = 0079747334) JACOB (test code = JACOB) Association of Glomerular Filtration Rate (GFR) and Staging of Kidney Disease* + --+ --+ ------+| GFR (mL/min/1.73 m2) ?| With Kidney Damage ?| ?Without Kidney Damage+ --------+ --------+ +| ?>90 ?| ?Stage one ?| ? Normal ?+ ---+ ---+ -------+| ?60-89 ?| ?Stage two ?| ? Decreased GFR ? + --+ --+ ------+| ?30-59 ?| ?Stage three ?| ? Stage three ? + --+ --+ ------+| ?15-29 ?| ?Stage four ? | ? Stage four ?+ ---+ ---+ -------+| ?<15 (or dialysis) ? ?| ?Stage five ? | ? Stage five ?+ ---+ ---+ -------+ *Each stage assumes the associated GFR level has been in effect for at least three months. ?Stages 1 to 5, with or without kidney disease, indicate chronic kidney disease. Notes: Determination of stages one and two (with eGFR >59mL/min/1.73 m2) requires estimation of kidney damage for at least three months as defined by structural or functional abnormalities of the kidney, manifested by either:Pathological abnormalities or Markers of kidney damage (including abnormalities in the composition of the blood or urine or abnormalities in imaging tests). Lab Interpretation Abnormal (test code = 55861-7) [facility]12 13:30:00 Test Item Value Reference Range Interpretation Comments POCT GLU (test code = 6067909486) 126 mg/dL 70-110 H Lab Interpretation (test code = Abnormal 05055-4) [facility] WITH [id number] 13:26:00 Test Item Value Reference Range Interpretation Comments WBC (test code = See_Comment [Automated 6690-2) message] The sy stem which generated this result transmitted reference range : 4.20 - 10.70 10*3/?L. The reference range was not used to interpret this result as normal/abnormal . RBC (test code = See_Comment L [Automated 789-8) message] The sy stem which generated this result transmitted reference range : 4.26 - 5.52 10*6/?L. The reference range was not used to interpret this result as normal/abnormal . HGB (test code = 7.8 g/dL 12.2-16.4 L 718-7) HCT (test code = 24.3 % 38.4-49.3 L 4544-3) MCV (test code = 92.0 fL 81.7-95.6 787-2) MCH (test code = 29.5 pg 26.1-32.7 785-6) MCHC (test code = 32.1 g/dL 31.2-35 786-4) RDW-SD (test code = 40.2 fL 38.5-51.6 85432-2) RDW-CV (test code = 11.9 % 12.1-15.4 L 788-0) PLT (test code = See_Comment H [Automated 777-3) message] The sy stem which generated this result transmitted reference range : 150 - 328 10*3/ ?L. The reference r gato was not used to interpret this result as normal/abnormal . MPV (test code = 10.2 fL 9.8-13 64492-8) NRBC/100 WBC (test See_Comment [Automat ed code = 1518764267) message] The system which generated this result transmitted reference range : 0.0 - 10.0 /100 WBCs. The refer ence range was not u sed to interpret th is result as normal/abnormal . NRBC x10^3 (test code <0.01 See_Comment [Auto mated = 1647839975) message] The s ystem which generated this result transmitted reference range : 10*3/?L. The reference range was not used to interpret this result as normal/abnormal . GRAN MAT (NEUT) % 64.6 % (test code = 770-8) IMM GRAN % (test code 4.40 % = 2955332596) LYMPH % (test code = 19.7 % 736-9) MONO % (test code = 7.2 % 5905-5) EOS % (test code = 3.1 % 713-8) BASO % (test code = 1.0 % 706-2) GRAN MAT x10^3(ANC) 5.61 10*3/uL 1.99-6.95 (test code = 2193908420) IMM GRAN x10^3 (test 0.38 10*3/uL 0-0.06 H code = 7826946233) LYMPH x10^3 (test code 1.71 10*3/uL 1.09-3.23 = 731-0) MONO x10^3 (test code 0.63 10*3/uL 0.36-1.02 = 742-7) EOS x10^3 (test code = 0.27 10*3/uL 0.06-0.53 711-2) BASO x10^3 (test code 0.09 10*3/uL 0.01-0.09 = 704-7) Lab Interpretation Abnormal (test code = 92270-0) [facility] GLUCOSE (AUTOMATED)2020-03-12 10:17:00 Test Item Value Reference Range Interpretation Comments POCT GLU (test code = 1600164307) 134 mg/dL 70-110 H Lab Interpretation (test code = Abnormal 46374-9) [facility] GLUCOSE (AUTOMATED)2020-03-12 05:54:00 Test Item Value Reference Range Interpretation Comments POCT GLU (test code = 0630401868) 150 mg/dL 70-110 H Lab Interpretation (test code = Abnormal 16759-4) [facility] GLUCOSE (AUTOMATED)2020-03-12 02:53:00 Test Item Value Reference Range Interpretation Comments POCT GLU (test code = 3609471484) 126 mg/dL 70-110 H Lab Interpretation (test code = Abnormal 44137-3) [facility] GLUCOSE (AUTOMATED)2020-03-12 00:07:00 Test Item Value Reference Range Interpretation Comments POCT GLU (test code = 8746516458) 97 mg/dL 70-110 Lab Interpretation (test code = Normal 92332-5) [facility] GLUCOSE (AUTOMATED)2020-03-11 18:29:00 Test Item Value Reference Range Interpretation Comments POCT GLU (test code = 3309782258) 142 mg/dL 70-110 H Lab Interpretation (test code = Abnormal 40911-2) [facility] GLUCOSE (AUTOMATED)2020-03-11 14:11:00 Test Item Value Reference Range Interpretation Comments POCT GLU (test code = 8893725624) 133 mg/dL 70-110 H Lab Interpretation (test code = Abnormal 76044-3) [facility] WITH [id number] 11:50:00 Test Item Value Reference Range Interpretation Comments WBC (test code = See_Comment [Automated 6690-2) message] The sy stem which generated this result transmitted reference range : 4.20 - 10.70 10*3/?L. The reference range was not used to interpret this result as normal/abnormal . RBC (test code = See_Comment L [Automated 789-8) message] The sy stem which generated this result transmitted reference range : 4.26 - 5.52 10*6/?L. The reference range was not used to interpret this result as normal/abnormal . HGB (test code = 8.2 g/dL 12.2-16.4 L 718-7) HCT (test code = 25.1 % 38.4-49.3 L 4544-3) MCV (test code = 91.3 fL 81.7-95.6 787-2) MCH (test code = 29.8 pg 26.1-32.7 785-6) MCHC (test code = 32.7 g/dL 31.2-35 786-4) RDW-SD (test code = 39.8 fL 38.5-51.6 41828-5) RDW-CV (test code = 12.0 % 12.1-15.4 L 788-0) PLT (test code = See_Comment H [Automated 777-3) message] The sy stem which generated this result transmitted reference range : 150 - 328 10*3/ ?L. The reference r gato was not used to interpret this result as normal/abnormal . MPV (test code = 10.3 fL 9.8-13 26807-4) NRBC/100 WBC (test See_Comment [Automat ed code = 6949595274) message] The system which generated this result transmitted reference range : 0.0 - 10.0 /100 WBCs. The refer ence range was not u sed to interpret th is result as normal/abnormal . NRBC x10^3 (test code <0.01 See_Comment [Auto mated = 8980758540) message] The s ystem which generated this result transmitted reference range : 10*3/?L. The reference range was not used to interpret this result as normal/abnormal . GRAN MAT (NEUT) % 62.4 % (test code = 770-8) IMM GRAN % (test code 4.60 % = 3186525660) LYMPH % (test code = 22.4 % 736-9) MONO % (test code = 7.0 % 5905-5) EOS % (test code = 2.8 % 713-8) BASO % (test code = 0.8 % 706-2) GRAN MAT x10^3(ANC) 6.59 10*3/uL 1.99-6.95 (test code = 3582439251) IMM GRAN x10^3 (test 0.48 10*3/uL 0-0.06 H code = 4870990305) LYMPH x10^3 (test code 2.36 10*3/uL 1.09-3.23 = 731-0) MONO x10^3 (test code 0.74 10*3/uL 0.36-1.02 = 742-7) EOS x10^3 (test code = 0.29 10*3/uL 0.06-0.53 711-2) BASO x10^3 (test code 0.08 10*3/uL 0.01-0.09 = 704-7) BANDS (test code = Increased A 7364428919) TOXIC CHANGES (test Present A code = 803-7) Lab Interpretation Abnormal (test code = 45457-6) [facility] METABOLIC PANEL (NA, K, CL, CO2, GLUCOSE, BUN, CREATININE, CA)2020-03-11 11:45:00 Test Item Value Reference Range Interpretation Comments NA (test code = 137 mmol/L 135-145 6473928684) K (test code = 4.8 mmol/L 3.5-5 3729775949) CL (test code = 107 mmol/L 98-108 1135571641) CO2 TOTAL (test code = 23 mmol/L 23-31 2349625983) AGAP (test code = 2-16 2242702274) BUN (test code = 39 mg/dL 7-23 H 0801085345) GLUCOSE (test code = 122 mg/dL 70-110 H 9810413155) CREATININE (test code = 3.09 mg/dL 0.6-1.25 H 9358482661) CALCIUM (test code = 7.7 mg/dL 8.6-10.6 L 9032600179) eGFR Calculation mL/min/1.73m2 (Non-) (test code = 6546818650) eGFR Calculation mL/min/1.73m2 () (test code = 2746471565) JACOB (test code = JACOB) Association of Glomerular Filtration Rate (GFR) and Staging of Kidney Disease* + --+ --+ ------+| GFR (mL/min/1.73 m2) ?| With Kidney Damage ?| ?Without Kidney Damage+ --------+ --------+ +| ?>90 ?| ?Stage one ?| ? Normal ?+ ---+ ---+ -------+| ?60-89 ?| ?Stage two ?| ? Decreased GFR ? + --+ --+ ------+| ?30-59 ?| ?Stage three ?| ? Stage three ? + --+ --+ ------+| ?15-29 ?| ?Stage four ? | ? Stage four ?+ ---+ ---+ -------+| ?<15 (or dialysis) ? ?| ?Stage five ? | ? Stage five ?+ ---+ ---+ -------+ *Each stage assumes the associated GFR level has been in effect for at least three months. ?Stages 1 to 5, with or without kidney disease, indicate chronic kidney disease. Notes: Determination of stages one and two (with eGFR >59mL/min/1.73 m2) requires estimation of kidney damage for at least three months as defined by structural or functional abnormalities of the kidney, manifested by either:Pathological abnormalities or Markers of kidney damage (including abnormalities in the composition of the blood or urine or abnormalities in imaging tests). Lab Interpretation Abnormal (test code = 79243-0) [facility] GLUCOSE (AUTOMATED)2020-03-11 10:45:00 Test Item Value Reference Range Interpretation Comments POCT GLU (test code = 5119575386) 128 mg/dL 70-110 H Lab Interpretation (test code = Abnormal 15575-7) [facility] UR[facility] [id number] 09:03:00 Test Item Value Reference Range Interpretation Comments T. PROT U (test code = 2888-6) 298 mg/dL CREAT U (test code = 8452035556) 81.2 mg/dL Protein/Creatinine Ratio Urine 0.0-2.0 H (test code = 6704746230) Lab Interpretation (test code = Abnormal 06708-6) [facility] GLUCOSE (AUTOMATED)2020-03-11 06:01:00 Test Item Value Reference Range Interpretation Comments POCT GLU (test code = 2231176867) 158 mg/dL 70-110 H Lab Interpretation (test code = Abnormal 16972-6) [facility] GLUCOSE (AUTOMATED)2020-03-11 02:09:00 Test Item Value Reference Range Interpretation Comments POCT GLU (test code = 3789563452) 196 mg/dL 70-110 H Lab Interpretation (test code = Abnormal 76730-6) [facility] GLUCOSE (AUTOMATED)2020-03-11 00:13:00 Test Item Value Reference Range Interpretation Comments POCT GLU (test code = 7151473353) 186 mg/dL 70-110 H Lab Interpretation (test code = Abnormal 81426-6) [facility] GLUCOSE (AUTOMATED)2020-03-10 18:29:00 Test Item Value Reference Range Interpretation Comments POCT GLU (test code = 5901968086) 250 mg/dL 70-110 H Lab Interpretation (test code = Abnormal 35946-9) [facility] PROTEIN, URINE [id number] 16:39:00 Test Item Value Reference Range Interpretation Comments T. PROT U (test code 292 mg/dL = 2888-6) JACOB (test code = Random Urine Total JACOB) Protein Reference Ranges Random Specimen: ? Less than 10 mg/dLFirst Morning Specimen: ? ?Less than 20 mg/dL ? [facility] 16:32:00 Test Item Value Reference Range Interpretation Comments APPEARANCE (test code = Cloudy Clear A 3733406105) COLOR (test code = Yellow Yellow 2798497115) PH (test code = 4.8-8.0 0501725969) SP GRAVITY (test code = 1.003-1.030 9250405775) GLU U QUAL (test code = 500 mg/dL Normal A 5565353526) BLOOD (test code = 1+ Negative A 0168365446) KETONES (test code = Negative Negative 0019600944) PROTEIN (test code = 500 mg/dL Negative A 2887-8) UROBILIN (test code = Normal Normal 4134988464) BILIRUBIN (test code = Negative Negative 4213406986) NITRITE (test code = Negative Negative 9592600535) LEUK UNA (test code = Negative Negative 3672144923) RBC/HPF (test code = See_Comment H [Autom ated message] 0368544723) The system [employer] generated this result transmit bhavik reference range : 0 - 3 HPF. The refe rence range was not u sed to interpret th is result as normal/abnormal . WBC/HPF (test code = See_Comment [Autom ated message] 8301221948) The system [employer] generated this result transmit bhavik reference range : 0 - 5 HPF. The refe rence range was not u sed to interpret th is result as normal/abnormal . BACTERIA (test code = Many Negative A 1765666137) MUCOUS (test code = Slight Negative LPF A 4872673744) AMORPHOUS (test code = Moderate Rare HPF A 9733988003) SQ EPITH (test code = <1 See_Comment [Auto mated message] 3156199251) The system [employer] Social IQ (Social Influence Quotient) generated this result transmit bhavik reference range : <=2 HPF. The refere nce range was not u sed to interpret th is result as normal/abnormal . SPERM (test code = See_Comment H [Automat ed message] 3827046134) The system [employer] generated this result transmit bhavik reference range : <=1 HPF. The refere nce range was not u sed to interpret th is result as normal/abnormal . Lab Interpretation (test Abnormal code = 21170-7) [facility] [id number] 16:27:00 Test Item Value Reference Range Interpretation Comments NA URINE (test code = 8864007879) 90 mmol/L [facility] NITROGEN, URINE [id number] 16:27:00 Test Item Value Reference Range Interpretation Comments UREA N UR (test code = 2063142828) 444 mg/dL [facility]CREAT[facility], URINE [id number] 16:27:00 Test Item Value Reference Range Interpretation Comments CREAT U (test code = 5224635745) 82.8 mg/dL [facility]2020-03-10 14:10:00 Test Item Value Reference Range Interpretation Comments POCT GLU (test code = 5509802815) 225 mg/dL 70-110 H Lab Interpretation (test code = Abnormal 06329-0) [facility] WITH [id number] 11:45:00 Test Item Value Reference Range Interpretation Comments WBC (test code = See_Comment H [Automated 6690-2) message] The sy stem which generated this result transmitted reference range : 4.20 - 10.70 10*3/?L. The reference range was not used to interpret this result as normal/abnormal . RBC (test code = See_Comment L [Automated 789-8) message] The sy stem which generated this result transmitted reference range : 4.26 - 5.52 10*6/?L. The reference range was not used to interpret this result as normal/abnormal . HGB (test code = 8.0 g/dL 12.2-16.4 L 718-7) HCT (test code = 24.3 % 38.4-49.3 L 4544-3) MCV (test code = 90.3 fL 81.7-95.6 787-2) MCH (test code = 29.7 pg 26.1-32.7 785-6) MCHC (test code = 32.9 g/dL 31.2-35 786-4) RDW-SD (test code = 38.8 fL 38.5-51.6 45718-8) RDW-CV (test code = 11.7 % 12.1-15.4 L 788-0) PLT (test code = See_Comment H [Automated 777-3) message] The sy stem which generated this result transmitted reference range : 150 - 328 10*3/ ?L. The reference r gato was not used to interpret this result as normal/abnormal . MPV (test code = 10.5 fL 9.8-13 98037-3) NRBC/100 WBC (test See_Comment [Automat ed code = 0007552597) message] The system which generated this result transmitted reference range : 0.0 - 10.0 /100 WBCs. The refer ence range was not u sed to interpret th is result as normal/abnormal . NRBC x10^3 (test code <0.01 See_Comment [Auto mated = 7250116002) message] The s ystem which generated this result transmitted reference range : 10*3/?L. The reference range was not used to interpret this result as normal/abnormal . GRAN MAT (NEUT) % 81.5 % (test code = 770-8) IMM GRAN % (test code 4.60 % = 2445100500) LYMPH % (test code = 7.1 % 736-9) MONO % (test code = 6.4 % 5905-5) EOS % (test code = 0.1 % 713-8) BASO % (test code = 0.3 % 706-2) GRAN MAT x10^3(ANC) 9.94 10*3/uL 1.99-6.95 H (test code = 6717188001) IMM GRAN x10^3 (test 0.56 10*3/uL 0-0.06 H code = 1703934670) LYMPH x10^3 (test code 0.87 10*3/uL 1.09-3.23 L = 731-0) MONO x10^3 (test code 0.78 10*3/uL 0.36-1.02 = 742-7) EOS x10^3 (test code = <0.03 0.06-0.53 L 711-2) BASO x10^3 (test code 0.04 10*3/uL 0.01-0.09 = 704-7) BANDS (test code = Increased A 9090647210) Lab Interpretation Abnormal (test code = 21133-5) [facility] METABOLIC PANEL (NA, K, CL, CO2, GLUCOSE, BUN, CREATININE, CA)2020-03-10 11:13:00 Test Item Value Reference Range Interpretation Comments NA (test code = 133 mmol/L 135-145 L 0095213486) K (test code = 5.0 mmol/L 3.5-5 1649127174) CL (test code = 106 mmol/L 98-108 1305904081) CO2 TOTAL (test code = 21 mmol/L 23-31 L 2952199332) AGAP (test code = 2-16 2809141094) BUN (test code = 41 mg/dL 7-23 H 5419885041) GLUCOSE (test code = 259 mg/dL 70-110 H 1251355073) CREATININE (test code = 3.64 mg/dL 0.6-1.25 H 2657258622) CALCIUM (test code = 7.6 mg/dL 8.6-10.6 L 1118568801) eGFR Calculation mL/min/1.73m2 (Non-) (test code = 8337162100) eGFR Calculation mL/min/1.73m2 () (test code = 2428409871) JACOB (test code = JACOB) Association of Glomerular Filtration Rate (GFR) and Staging of Kidney Disease* + --+ --+ ------+| GFR (mL/min/1.73 m2) ?| With Kidney Damage ?| ?Without Kidney Damage+ --------+ --------+ +| ?>90 ?| ?Stage one ?| ? Normal ?+ ---+ ---+ -------+| ?60-89 ?| ?Stage two ?| ? Decreased GFR ? + --+ --+ ------+| ?30-59 ?| ?Stage three ?| ? Stage three ? + --+ --+ ------+| ?15-29 ?| ?Stage four ? | ? Stage four ?+ ---+ ---+ -------+| ?<15 (or dialysis) ? ?| ?Stage five ? | ? Stage five ?+ ---+ ---+ -------+ *Each stage assumes the associated GFR level has been in effect for at least three months. ?Stages 1 to 5, with or without kidney disease, indicate chronic kidney disease. Notes: Determination of stages one and two (with eGFR >59mL/min/1.73 m2) requires estimation of kidney damage for at least three months as defined by structural or functional abnormalities of the kidney, manifested by either:Pathological abnormalities or Markers of kidney damage (including abnormalities in the composition of the blood or urine or abnormalities in imaging tests). Lab Interpretation Abnormal (test code = 18503-0) [facility] GLUCOSE (AUTOMATED)2020-03-10 10:26:00 Test Item Value Reference Range Interpretation Comments POCT GLU (test code = 4437939822) 281 mg/dL 70-110 H Lab Interpretation (test code = Abnormal 83220-9) [facility] GLUCOSE (AUTOMATED)2020-03-10 07:33:00 Test Item Value Reference Range Interpretation Comments POCT GLU (test code = 3341991872) 320 mg/dL 70-110 H Lab Interpretation (test code = Abnormal 02967-3) [facility] COVID [id number] 04:53:00COVID DMT InterpretationInterpretation/Recommendations: Molecular NAAT Tests for Active Infection with the SARS-CoV-2 Virus: This patient has tested negative on two occasions for the SARS-CoV-2 virus that causes COVID-19 illness. This most likely indicates that the patient does not have an active infection with the SARS-CoV-2 virus, especially if these tests coincide with the patient's current presentation. However, infection is not completely ruled out as the false negative rate for molecular NAAT testing using a nasopharyngeal sample can be up to 30%, mostly dependent on the timing of sample collection in relation to illness onset and any deficiencies in sampling techniques. If the patient contin ues to have persistent or worsening symptoms concerning for COVID-19 illness, a repeat NAAT test (PCR, Rapid ID Now, etc.) should be performed, at which time the SARS-CoV-2 virus - if present - may have reached a detectable viral load (usually peaking by the end of the first week of symptoms). Tests for IgM and/or IgG Antibodies to SARS-CoV-2 Virus: Testing for IgM and IgG antibodies 1-3 weeks after illness onset will indicate whether the patient has produced antibodies to the virus. At this time, it is not known if the production of antibodies - specifically IgG antibodies - indicates whether the patient is immune to future infections with the SARS-CoV-2 virus. Interpretation Result Comments: These interpretation comments are based upon aggregate COVID-19 test results pooled from [facility]. They apply to the following tests offered at [facility] and assume the acceptable specimen type(s) were used: A. Tests for the Identification of SARS-CoV-2 RNA (Molecular NAAT Tests): ?- SARS-CoV-2 PCR assays including Nineveh Aptima, Nineveh Fusion, Urias RealTime, and Secondbrain Xpert Xpress. ?- SARS-CoV-2 Rapid ID NOW by the ID NOWassay. ? B. Tests for the Identification of SARS-CoV-2 Antibodies: ?- Chemiluminescent immunoassays including Access SARS-CoV-2 IgM (DXI 600), TrochetS Aazt-LAAZ-VrL-2 IgG (Vitros 5600 and Vitros 3600), and Urias SARS-CoV-2 IgG ([employer]OR OF CAPITAL GIVING I System). These interpretations are autopopulated into [facility] based on computerized algorithms matching an interpretation code to the patient's set of test results, and a clinical pathologist evaluates the comments for accuracy. However, these comments do not consider testing a patient may have had outside of the [facility] system. If results for COVID-19 infection continue to be negative in the context of a suspected viral respiratory illness, it is possible the patient may have an infection with another respiratory virus. Influenza testing and a respiratory pathogen panel if clinically indicated may be beneficial in this setting. If there continues to be a highdegree of clinical suspicion for COVID-19 illness despite multiple negative tests on nasopharyngeal specimens, then it may be necessary to test the patient for the SARS-CoV-2 virus using lower respiratory tract samples (such as sputum, bronchoalveolar lavage fluid (BAL), tracheal aspirate, etc.). ? [facility] LABORAT[facility] SERVICESCOVID XgaclxyBTVH-VsV-2 Rapid ID NOW (no units) ? ? Date ? Value ? 03/08/2020 ? Not Detected ? ? ? 03/03/2020 ? Not Detected ? [facility] 2020-03-10 03:47:00 Test Item Value Reference Range Interpretation Comments POCT GLU (test code = 3339005786) 374 mg/dL 70-110 H Lab Interpretation (test code = Abnormal 56710-3) [facility] GLUCOSE (AUTOMATED)2020-03-10 00:22:00 Test Item Value Reference Range Interpretation Comments POCT GLU (test code = 2163928074) 371 mg/dL 70-110 H Lab Interpretation (test code = Abnormal 35759-7) [facility] GLUCOSE (AUTOMATED)2020-03-09 20:23:00 Test Item Value Reference Range Interpretation Comments POCT GLU (test code = 2527684481) 257 mg/dL 70-110 H Lab Interpretation (test code = Abnormal 96069-6) [facility] GLUCOSE (AUTOMATED)2020-03-09 14:04:00 Test Item Value Reference Range Interpretation Comments POCT GLU (test code = 8858981134) 137 mg/dL 70-110 H Lab Interpretation (test code = Abnormal 18240-7) [facility] 13:43:00 Test Item Value Reference Range Interpretation Comments ALBUMIN (test code = 6071597136) 2.5 g/dL 3.5-5 L Lab Interpretation (test code = Abnormal 31032-0) [facility] WITH [id number] 13:29:00 Test Item Value Reference Range Interpretation Comments WBC (test code = See_Comment [Automated 6690-2) message] The sy stem which generated this result transmitted reference range : 4.20 - 10.70 10*3/?L. The reference range was not used to interpret this result as normal/abnormal . RBC (test code = See_Comment L [Automated 789-8) message] The sy stem which generated this result transmitted reference range : 4.26 - 5.52 10*6/?L. The reference range was not used to interpret this result as normal/abnormal . HGB (test code = 8.5 g/dL 12.2-16.4 L 718-7) HCT (test code = 25.7 % 38.4-49.3 L 4544-3) MCV (test code = 90.5 fL 81.7-95.6 787-2) MCH (test code = 29.9 pg 26.1-32.7 785-6) MCHC (test code = 33.1 g/dL 31.2-35 786-4) RDW-SD (test code = 39.3 fL 38.5-51.6 68784-5) RDW-CV (test code = 11.9 % 12.1-15.4 L 788-0) PLT (test code = See_Comment [Automated 777-3) message] The sy stem which generated this result transmitted reference range : 150 - 328 10*3/ ?L. The reference r gato was not used to interpret this result as normal/abnormal . MPV (test code = 10.4 fL 9.8-13 49069-5) NRBC/100 WBC (test See_Comment [Automat ed code = 7643430342) message] The system which generated this result transmitted reference range : 0.0 - 10.0 /100 WBCs. The refer ence range was not u sed to interpret th is result as normal/abnormal . NRBC x10^3 (test code <0.01 See_Comment [Auto mated = 2313066943) message] The s ystem which generated this result transmitted reference range : 10*3/?L. The reference range was not used to interpret this result as normal/abnormal . GRAN MAT (NEUT) % 62.3 % (test code = 770-8) IMM GRAN % (test code 9.70 % = 7356855044) LYMPH % (test code = 14.4 % 736-9) MONO % (test code = 9.6 % 5905-5) EOS % (test code = 3.1 % 713-8) BASO % (test code = 0.9 % 706-2) GRAN MAT x10^3(ANC) 5.99 10*3/uL 1.99-6.95 (test code = 9450077801) IMM GRAN x10^3 (test 0.93 10*3/uL 0-0.06 H code = 8379765625) LYMPH x10^3 (test code 1.38 10*3/uL 1.09-3.23 = 731-0) MONO x10^3 (test code 0.92 10*3/uL 0.36-1.02 = 742-7) EOS x10^3 (test code = 0.30 10*3/uL 0.06-0.53 711-2) BASO x10^3 (test code 0.09 10*3/uL 0.01-0.09 = 704-7) BANDS (test code = Increased A 2340122383) TOXIC CHANGES (test Present A code = 803-7) Lab Interpretation Abnormal (test code = 02279-0) [facility] METABOLIC PANEL (NA, K, CL, CO2, GLUCOSE, BUN, CREATININE, CA)2020-03-09 12:44:00 Test Item Value Reference Range Interpretation Comments NA (test code = 135 mmol/L 135-145 0619867338) K (test code = 4.5 mmol/L 3.5-5 4052118465) CL (test code = 106 mmol/L 98-108 0008307915) CO2 TOTAL (test code = 22 mmol/L 23-31 L 1895379060) AGAP (test code = 2-16 7474399481) BUN (test code = 30 mg/dL 7-23 H 7961015141) GLUCOSE (test code = 123 mg/dL 70-110 H 3285550841) CREATININE (test code = 2.95 mg/dL 0.6-1.25 H 7999479932) CALCIUM (test code = 7.7 mg/dL 8.6-10.6 L 0755608803) eGFR Calculation mL/min/1.73m2 (Non-) (test code = 9846496287) eGFR Calculation mL/min/1.73m2 () (test code = 4538947524) JACOB (test code = JACOB) Association of Glomerular Filtration Rate (GFR) and Staging of Kidney Disease* + --+ --+ ------+| GFR (mL/min/1.73 m2) ?| With Kidney Damage ?| ?Without Kidney Damage+ --------+ --------+ +| ?>90 ?| ?Stage one ?| ? Normal ?+ ---+ ---+ -------+| ?60-89 ?| ?Stage two ?| ? Decreased GFR ? + --+ --+ ------+| ?30-59 ?| ?Stage three ?| ? Stage three ? + --+ --+ ------+| ?15-29 ?| ?Stage four ? | ? Stage four ?+ ---+ ---+ -------+| ?<15 (or dialysis) ? ?| ?Stage five ? | ? Stage five ?+ ---+ ---+ -------+ *Each stage assumes the associated GFR level has been in effect for at least three months. ?Stages 1 to 5, with or without kidney disease, indicate chronic kidney disease. Notes: Determination of stages one and two (with eGFR >59mL/min/1.73 m2) requires estimation of kidney damage for at least three months as defined by structural or functional abnormalities of the kidney, manifested by either:Pathological abnormalities or Markers of kidney damage (including abnormalities in the composition of the blood or urine or abnormalities in imaging tests). Lab Interpretation Abnormal (test code = 37900-2) [facility] GLUCOSE (AUTOMATED)2020-03-09 02:59:00 Test Item Value Reference Range Interpretation Comments POCT GLU (test code = 3026222827) 188 mg/dL 70-110 H Lab Interpretation (test code = Abnormal 71461-1) [facility] GLUCOSE (AUTOMATED)2020-03-09 00:32:00 Test Item Value Reference Range Interpretation Comments POCT GLU (test code = 2846785699) 180 mg/dL 70-110 H Lab Interpretation (test code = Abnormal 78201-7) [facility] GLUCOSE (AUTOMATED)2020-03-08 20:09:00 Test Item Value Reference Range Interpretation Comments POCT GLU (test code = 9066146272) 233 mg/dL 70-110 H Lab Interpretation (test code = Abnormal 73737-8) [facility]ID NOW RAPID TESTING[facility]2020-03-08 15:11:00 Test Item Value Reference Range Interpretation Comments SARS-CoV-2 Rapid ID NOW Not Detected Not Detected (test code = 67995-8) JACOB (test code = JACOB) ID NOW COVID-19 Assay is an isothermal nucleic acid amplification test intended for the qualitative detection of nucleic acid from SARS-CoV-2 viral RNA in nasopharyngeal ([employer] DEVELOPER) specimens. It is used under Emergency Use Authorization (EUA) by FDA. The limit of detection (LOD) of the assay is 125 Genome Equivalents/mL. A positive result is indicative of the presence of SARS-CoV-2 RNA. ?Clinical correlation with patient history and other diagnostic information is necessary to determine patient infection status. A negative (Not Detected) result does not preclude SARS-CoV-2 infection. In patients with clinical symptoms and other tests that are consistent with SARS-CoV-2 infection, negative results should be treated as presumptive negative and a new specimen should be tested with alternative PCR molecular test. Invalid: Please collect a new specimen for repeat patient testing if clinically indicated. Lab Interpretation Normal (test code = 25536-5) [facility] GLUCOSE (AUTOMATED)2020-03-08 14:53:00 Test Item Value Reference Range Interpretation Comments POCT GLU (test code = 5282576871) 138 mg/dL 70-110 H Lab Interpretation (test code = Abnormal 30001-2) [facility] [id number] 14:42:00 Test Item Value Reference Range Interpretation Comments WBC (test code = See_Comment H [Automated 6690-2) message] The sy stem which generated this result transmitted reference range : 4.20 - 10.70 10*3/?L. The reference range was not used to interpret this result as normal/abnormal . RBC (test code = See_Comment L [Automated 789-8) message] The sy stem which generated this result transmitted reference range : 4.26 - 5.52 10*6/?L. The reference range was not used to interpret this result as normal/abnormal . HGB (test code = 8.9 g/dL 12.2-16.4 L 718-7) HCT (test code = 27.0 % 38.4-49.3 L 4544-3) MCV (test code = 90.6 fL 81.7-95.6 787-2) MCH (test code = 29.9 pg 26.1-32.7 785-6) MCHC (test code = 33.0 g/dL 31.2-35 786-4) RDW-SD (test code = 39.7 fL 38.5-51.6 66983-2) RDW-CV (test code = 11.9 % 12.1-15.4 L 788-0) PLT (test code = See_Comment H [Automated 777-3) message] The sy stem which generated this result transmitted reference range : 150 - 328 10*3/ ?L. The reference r gato was not used to interpret this result as normal/abnormal . MPV (test code = 10.4 fL 9.8-13 34143-5) NRBC/100 WBC (test See_Comment [Automat ed code = 5019658035) message] The system which generated this result transmitted reference range : 0.0 - 10.0 /100 WBCs. The refer ence range was not u sed to interpret th is result as normal/abnormal . NRBC x10^3 (test code <0.01 See_Comment [Auto mated = 1053624111) message] The s ystem which generated this result transmitted reference range : 10*3/?L. The reference range was not used to interpret this result as normal/abnormal . GRAN MAT (NEUT) % 66.6 % (test code = 770-8) IMM GRAN % (test code 8.40 % = 1245632274) LYMPH % (test code = 12.1 % 736-9) MONO % (test code = 9.8 % 5905-5) EOS % (test code = 2.4 % 713-8) BASO % (test code = 0.7 % 706-2) GRAN MAT x10^3(ANC) 8.26 10*3/uL 1.99-6.95 H (test code = 7323766503) IMM GRAN x10^3 (test 1.04 10*3/uL 0-0.06 H code = 2675796737) LYMPH x10^3 (test code 1.50 10*3/uL 1.09-3.23 = 731-0) MONO x10^3 (test code 1.21 10*3/uL 0.36-1.02 H = 742-7) EOS x10^3 (test code = 0.30 10*3/uL 0.06-0.53 711-2) BASO x10^3 (test code 0.09 10*3/uL 0.01-0.09 = 704-7) BANDS (test code = Increased A 4087225590) Lab Interpretation Abnormal (test code = 08699-6) [facility] METABOLIC PANEL (NA, K, CL, CO2, GLUCOSE, BUN, CREATININE, CA)2020-03-08 13:43:00 Test Item Value Reference Range Interpretation Comments NA (test code = 134 mmol/L 135-145 L 1345447795) K (test code = 4.5 mmol/L 3.5-5 4545245656) CL (test code = 105 mmol/L 98-108 5440536911) CO2 TOTAL (test code = 23 mmol/L 23-31 8215276625) AGAP (test code = 2-16 7093111097) BUN (test code = 34 mg/dL 7-23 H 9969964257) GLUCOSE (test code = 148 mg/dL 70-110 H 6946430360) CREATININE (test code = 2.91 mg/dL 0.6-1.25 H 8024903751) CALCIUM (test code = 7.9 mg/dL 8.6-10.6 L 8178102385) eGFR Calculation mL/min/1.73m2 (Non-) (test code = 3222848354) eGFR Calculation mL/min/1.73m2 () (test code = 1405061580) JACOB (test code = JACOB) Association of Glomerular Filtration Rate (GFR) and Staging of Kidney Disease* + --+ --+ ------+| GFR (mL/min/1.73 m2) ?| With Kidney Damage ?| ?Without Kidney Damage+ --------+ --------+ +| ?>90 ?| ?Stage one ?| ? Normal ?+ ---+ ---+ -------+| ?60-89 ?| ?Stage two ?| ? Decreased GFR ? + --+ --+ ------+| ?30-59 ?| ?Stage three ?| ? Stage three ? + --+ --+ ------+| ?15-29 ?| ?Stage four ? | ? Stage four ?+ ---+ ---+ -------+| ?<15 (or dialysis) ? ?| ?Stage five ? | ? Stage five ?+ ---+ ---+ -------+ *Each stage assumes the associated GFR level has been in effect for at least three months. ?Stages 1 to 5, with or without kidney disease, indicate chronic kidney disease. Notes: Determination of stages one and two (with eGFR >59mL/min/1.73 m2) requires estimation of kidney damage for at least three months as defined by structural or functional abnormalities of the kidney, manifested by either:Pathological abnormalities or Markers of kidney damage (including abnormalities in the composition of the blood or urine or abnormalities in imaging tests). Lab Interpretation Abnormal (test code = 61884-9) [facility] GLUCOSE (AUTOMATED)2020-03-08 03:18:00 Test Item Value Reference Range Interpretation Comments POCT GLU (test code = 4209801611) 217 mg/dL 70-110 H Lab Interpretation (test code = Abnormal 29559-9) [facility] GLUCOSE (AUTOMATED)2020-03-08 00:26:00 Test Item Value Reference Range Interpretation Comments POCT GLU (test code = 9242208370) 157 mg/dL 70-110 H Lab Interpretation (test code = Abnormal 31853-4) [facility] GLUCOSE (AUTOMATED)2020-03-07 23:06:00 Test Item Value Reference Range Interpretation Comments POCT GLU (test code = 9678981944) 161 mg/dL 70-110 H Lab Interpretation (test code = Abnormal 76472-7) [facility] GLUCOSE (AUTOMATED)2020-03-07 17:28:00 Test Item Value Reference Range Interpretation Comments POCT GLU (test code = 4599261423) 122 mg/dL 70-110 H Lab Interpretation (test code = Abnormal 88195-8) [facility] 13:03:00 Test Item Value Reference Range Interpretation Comments POCT GLU (test code = 4449930297) 121 mg/dL 70-110 H Lab Interpretation (test code = Abnormal 46281-7) [facility] WITH [id number] 12:59:00 Test Item Value Reference Range Interpretation Comments WBC (test code = See_Comment H [Automated 6690-2) message] The sy stem which generated this result transmitted reference range : 4.20 - 10.70 10*3/?L. The reference range was not used to interpret this result as normal/abnormal . RBC (test code = See_Comment L [Automated 789-8) message] The sy stem which generated this result transmitted reference range : 4.26 - 5.52 10*6/?L. The reference range was not used to interpret this result as normal/abnormal . HGB (test code = 9.0 g/dL 12.2-16.4 L 718-7) HCT (test code = 27.2 % 38.4-49.3 L 4544-3) MCV (test code = 90.1 fL 81.7-95.6 787-2) MCH (test code = 29.8 pg 26.1-32.7 785-6) MCHC (test code = 33.1 g/dL 31.2-35 786-4) RDW-SD (test code = 38.9 fL 38.5-51.6 42977-9) RDW-CV (test code = 11.9 % 12.1-15.4 L 788-0) PLT (test code = See_Comment [Automated 777-3) message] The sy stem which generated this result transmitted reference range : 150 - 328 10*3/ ?L. The reference r gato was not used to interpret this result as normal/abnormal . MPV (test code = 10.5 fL 9.8-13 91615-8) NRBC/100 WBC (test See_Comment [Automat ed code = 2993834848) message] The system which generated this result transmitted reference range : 0.0 - 10.0 /100 WBCs. The refer ence range was not u sed to interpret th is result as normal/abnormal . NRBC x10^3 (test code <0.01 See_Comment [Auto mated = 9673621864) message] The s ystem which generated this result transmitted reference range : 10*3/?L. The reference range was not used to interpret this result as normal/abnormal . GRAN MAT (NEUT) % 60.7 % (test code = 770-8) IMM GRAN % (test code 11.40 % = 5742396605) LYMPH % (test code = 15.9 % 736-9) MONO % (test code = 7.6 % 5905-5) EOS % (test code = 3.4 % 713-8) BASO % (test code = 1.0 % 706-2) GRAN MAT x10^3(ANC) 6.83 10*3/uL 1.99-6.95 (test code = 1675187819) IMM GRAN x10^3 (test 1.28 10*3/uL 0-0.06 H code = 0925326099) LYMPH x10^3 (test code 1.79 10*3/uL 1.09-3.23 = 731-0) MONO x10^3 (test code 0.86 10*3/uL 0.36-1.02 = 742-7) EOS x10^3 (test code = 0.38 10*3/uL 0.06-0.53 711-2) BASO x10^3 (test code 0.11 10*3/uL 0.01-0.09 H = 704-7) BANDS (test code = Increased A 7564270877) REACT LYMPHS (test Rare code = 5191529937) Lab Interpretation Abnormal (test code = 06345-0) [facility] METABOLIC PANEL (NA, K, CL, CO2, GLUCOSE, BUN, CREATININE, CA)2020-03-07 12:32:00 Test Item Value Reference Range Interpretation Comments NA (test code = 135 mmol/L 135-145 5488942642) K (test code = 4.3 mmol/L 3.5-5 2580141157) CL (test code = 107 mmol/L 98-108 7383247295) CO2 TOTAL (test code = 20 mmol/L 23-31 L 2006196146) AGAP (test code = 2-16 5712608528) BUN (test code = 39 mg/dL 7-23 H 1671644575) GLUCOSE (test code = 123 mg/dL 70-110 H 9073181927) CREATININE (test code = 2.81 mg/dL 0.6-1.25 H 7249052369) CALCIUM (test code = 7.6 mg/dL 8.6-10.6 L 7345823807) eGFR Calculation mL/min/1.73m2 (Non-) (test code = 2567963763) eGFR Calculation mL/min/1.73m2 () (test code = 1710842870) JACOB (test code = JACOB) Association of Glomerular Filtration Rate (GFR) and Staging of Kidney Disease* + --+ --+ ------+| GFR (mL/min/1.73 m2) ?| With Kidney Damage ?| ?Without Kidney Damage+ --------+ --------+ +| ?>90 ?| ?Stage one ?| ? Normal ?+ ---+ ---+ -------+| ?60-89 ?| ?Stage two ?| ? Decreased GFR ? + --+ --+ ------+| ?30-59 ?| ?Stage three ?| ? Stage three ? + --+ --+ ------+| ?15-29 ?| ?Stage four ? | ? Stage four ?+ ---+ ---+ -------+| ?<15 (or dialysis) ? ?| ?Stage five ? | ? Stage five ?+ ---+ ---+ -------+ *Each stage assumes the associated GFR level has been in effect for at least three months. ?Stages 1 to 5, with or without kidney disease, indicate chronic kidney disease. Notes: Determination of stages one and two (with eGFR >59mL/min/1.73 m2) requires estimation of kidney damage for at least three months as defined by structural or functional abnormalities of the kidney, manifested by either:Pathological abnormalities or Markers of kidney damage (including abnormalities in the composition of the blood or urine or abnormalities in imaging tests). Lab Interpretation Abnormal (test code = 45872-6) [facility] [id number] 09:01:00 Test Item Value Reference Range Interpretation Comments Blood Culture-Aerobic No organisms No growth Previo us (test code = 98367-7) isolated prelim inary verified result was Culture In Progress on 03/02/2020 at 0601 CSTPreviou s preliminary verified result was No growth a t 24 hours on 03/03/2020 at 0301 CSTPreviou s preliminary verified result was No growth a t 48 hours on 03/04/2020 at 03 01 CSTPrevious preliminary verified result was No growth a t 72 hours on 03/05/2020 at 03 01 [employer] Blood No organisms No growth Previous Culture-Anaerobic isolated preliminar y (test code = 79043-3) verifi ed result was Culture In Progress on 03/02/2020 at 0601 CSTPreviou s preliminary verified result was No growth a t 24 hours on 03/03/2020 at 0301 CSTPreviou s preliminary verified result was No growth a t 48 hours on 03/04/2020 at 03 01 CSTPrevious preliminary verified result was No growth a t 72 hours on 03/05/2020 at 03 01 [employer] Lab Interpretation Normal (test code = 76158-2) [facility] CULTURE [id number] 09:01:00 Test Item Value Reference Range Interpretation Comments Blood Culture-Aerobic No organisms No growth Previo us (test code = 68449-0) isolated prelim inary verified result was Culture In Progress on 03/02/2020 at 0601 CSTPreviou s preliminary verified result was No growth a t 24 hours on 03/03/2020 at 0301 CSTPreviou s preliminary verified result was No growth a t 48 hours on 03/04/2020 at 03 01 CSTPrevious preliminary verified result was No growth a t 72 hours on 03/05/2020 at 03 01 [employer] Blood No organisms No growth Previous Culture-Anaerobic isolated preliminar y (test code = 46314-9) verifi ed result was Culture In Progress on 03/02/2020 at 0601 CSTPreviou s preliminary verified result was No growth a t 24 hours on 03/03/2020 at 0301 CSTPreviou s preliminary verified result was No growth a t 48 hours on 03/04/2020 at 03 01 CSTPrevious preliminary verified result was No growth a t 72 hours on 03/05/2020 at 03 01 [employer] Lab Interpretation Normal (test code = 57287-3) [facility] GLUCOSE (AUTOMATED)2020-03-07 04:20:00 Test Item Value Reference Range Interpretation Comments POCT GLU (test code = 1803261992) 173 mg/dL 70-110 H Lab Interpretation (test code = Abnormal 15959-5) [facility] GLUCOSE (AUTOMATED)2020-03-07 01:49:00 Test Item Value Reference Range Interpretation Comments POCT GLU (test code = 2400452037) 237 mg/dL 70-110 H Lab Interpretation (test code = Abnormal 93092-4) [facility] GLUCOSE (AUTOMATED)2020-03-06 23:40:00 Test Item Value Reference Range Interpretation Comments POCT GLU (test code = 5638416687) 214 mg/dL 70-110 H Lab Interpretation (test code = Abnormal 16015-0) [facility] GLUCOSE (AUTOMATED)2020-03-06 18:20:00 Test Item Value Reference Range Interpretation Comments POCT GLU (test code = 8632052139) 308 mg/dL 70-110 H Lab Interpretation (test code = Abnormal 23962-7) [facility] GLUCOSE (AUTOMATED)2020-03-06 13:46:00 Test Item Value Reference Range Interpretation Comments POCT GLU (test code = 7230408966) 159 mg/dL 70-110 H Lab Interpretation (test code = Abnormal 11022-6) [facility] GLUCOSE (AUTOMATED)2020-03-06 12:07:00 Test Item Value Reference Range Interpretation Comments POCT GLU (test code = 7129040830) 144 mg/dL 70-110 H Lab Interpretation (test code = Abnormal 80418-1) [facility] WITH [id number] 07:00:00 Test Item Value Reference Range Interpretation Comments WBC (test code = See_Comment H [Automated 6690-2) message] The system which generated this result transmit bhavik reference range : 4.20 - 10.70 10*3/?L. The reference range was not used to interpret this result as normal/abnormal . RBC (test code = See_Comment L [Automated 789-8) message] The system which generated this result transmit bhavik reference range : 4.26 - 5.52 10*6/?L. The reference range was not used to interpret this result as normal/abnormal . HGB (test code = 10.0 g/dL 12.2-16.4 L 718-7) HCT (test code = 29.4 % 38.4-49.3 L 4544-3) MCV (test code = 89.1 fL 81.7-95.6 787-2) MCH (test code = 30.3 pg 26.1-32.7 785-6) MCHC (test code = 34.0 g/dL 31.2-35 786-4) RDW-SD (test code = 38.5 fL 38.5-51.6 67993-3) RDW-CV (test code = 11.9 % 12.1-15.4 L 788-0) PLT (test code = See_Comment [Automated 777-3) message] The system which generated this result transmit bhavik reference range : 150 - 328 10*3/ ?L. The reference range was not u sed to interpret th is result as normal/abnormal . MPV (test code = 10.1 fL 9.8-13 18423-0) NRBC/100 WBC (test See_Comment [Automat ed code = 1205569828) message] The system which generated this result transmit bhavik reference range : 0.0 - 10.0 /100 WBCs. The reference range was not used to interpret this result as normal/abnormal . NRBC x10^3 (test code <0.01 See_Comment [Auto mated = 4702363154) message] The system which generated this result transmit bhavik reference range : 10*3/?L. The reference range was not used to interpret this result as normal/abnormal . GRAN MAT (NEUT) % 76.8 % (test code = 770-8) IMM GRAN % (test code 6.60 % = 9032688674) LYMPH % (test code = 8.1 % 736-9) MONO % (test code = 6.9 % 5905-5) EOS % (test code = 1.1 % 713-8) BASO % (test code = 0.5 % 706-2) GRAN MAT x10^3(ANC) 13.09 10*3/uL 1.99-6.95 H (test code = 3372789633) IMM GRAN x10^3 (test 1.12 10*3/uL 0-0.06 H code = 0017643142) LYMPH x10^3 (test code 1.38 10*3/uL 1.09-3.23 = 731-0) MONO x10^3 (test code 1.17 10*3/uL 0.36-1.02 H = 742-7) EOS x10^3 (test code = 0.18 10*3/uL 0.06-0.53 711-2) BASO x10^3 (test code 0.08 10*3/uL 0.01-0.09 = 704-7) BANDS (test code = Increased A 2263380456) Lab Interpretation Abnormal (test code = 39058-5) [facility] 07:00:00 Test Item Value Reference Range Interpretation Comments POCT GLU (test code = 1383050650) 167 mg/dL 70-110 H Lab Interpretation (test code = Abnormal 86438-0) [facility] (NA, K, CL, CO2, GLUCOSE, BUN, CREATININE, CA)2020-03-06 06:51:00 Test Item Value Reference Range Interpretation Comments NA (test code = 133 mmol/L 135-145 L 4097561354) K (test code = 4.3 mmol/L 3.5-5 5254685111) CL (test code = 106 mmol/L 98-108 0813179688) CO2 TOTAL (test code = 20 mmol/L 23-31 L 1491575619) AGAP (test code = 2-16 0176540534) BUN (test code = 42 mg/dL 7-23 H 4629581945) GLUCOSE (test code = 133 mg/dL 70-110 H 0566912690) CREATININE (test code = 2.70 mg/dL 0.6-1.25 H 8769869286) CALCIUM (test code = 7.6 mg/dL 8.6-10.6 L 0068760408) eGFR Calculation mL/min/1.73m2 (Non-) (test code = 9986431729) eGFR Calculation mL/min/1.73m2 () (test code = 1651458232) JACOB (test code = JACOB) Association of Glomerular Filtration Rate (GFR) and Staging of Kidney Disease* + --+ --+ ------+| GFR (mL/min/1.73 m2) ?| With Kidney Damage ?| ?Without Kidney Damage+ --------+ --------+ +| ?>90 ?| ?Stage one ?| ? Normal ?+ ---+ ---+ -------+| ?60-89 ?| ?Stage two ?| ? Decreased GFR ? + --+ --+ ------+| ?30-59 ?| ?Stage three ?| ? Stage three ? + --+ --+ ------+| ?15-29 ?| ?Stage four ? | ? Stage four ?+ ---+ ---+ -------+| ?<15 (or dialysis) ? ?| ?Stage five ? | ? Stage five ?+ ---+ ---+ -------+ *Each stage assumes the associated GFR level has been in effect for at least three months. ?Stages 1 to 5, with or without kidney disease, indicate chronic kidney disease. Notes: Determination of stages one and two (with eGFR >59mL/min/1.73 m2) requires estimation of kidney damage for at least three months as defined by structural or functional abnormalities of the kidney, manifested by either:Pathological abnormalities or Markers of kidney damage (including abnormalities in the composition of the blood or urine or abnormalities in imaging tests). Lab Interpretation Abnormal (test code = 43265-8) [facility] GLUCOSE (AUTOMATED)2020-03-06 02:21:00 Test Item Value Reference Range Interpretation Comments POCT GLU (test code = 3955072384) 270 mg/dL 70-110 H Lab Interpretation (test code = Abnormal 88925-7) [facility] GLUCOSE (AUTOMATED)2020-03-05 21:25:00 Test Item Value Reference Range Interpretation Comments POCT GLU (test code = 6188031492) 229 mg/dL 70-110 H Lab Interpretation (test code = Abnormal 38385-7) [facility] GLUCOSE (AUTOMATED)2020-03-05 13:26:00 Test Item Value Reference Range Interpretation Comments POCT GLU (test code = 7361066073) 190 mg/dL 70-110 H Lab Interpretation (test code = Abnormal 10050-7) [facility] WITH [id number] 12:57:00 Test Item Value Reference Range Interpretation Comments WBC (test code = See_Comment H [Automated 6690-2) message] The system which generated this result transmit bhavik reference range : 4.20 - 10.70 10*3/?L. The reference range was not used to interpret this result as normal/abnormal . RBC (test code = See_Comment L [Automated 789-8) message] The system which generated this result transmit bhavik reference range : 4.26 - 5.52 10*6/?L. The reference range was not used to interpret this result as normal/abnormal . HGB (test code = 10.2 g/dL 12.2-16.4 L 718-7) HCT (test code = 30.7 % 38.4-49.3 L 4544-3) MCV (test code = 90.0 fL 81.7-95.6 787-2) MCH (test code = 29.9 pg 26.1-32.7 785-6) MCHC (test code = 33.2 g/dL 31.2-35 786-4) RDW-SD (test code = 40.0 fL 38.5-51.6 29626-2) RDW-CV (test code = 12.2 % 12.1-15.4 788-0) PLT (test code = See_Comment H [Automated 777-3) message] The system which generated this result transmit bhavik reference range : 150 - 328 10*3/ ?L. The reference range was not u sed to interpret th is result as normal/abnormal . MPV (test code = 10.4 fL 9.8-13 51440-8) NRBC/100 WBC (test See_Comment [Automat ed code = 0553391384) message] The system which generated this result transmit bhavik reference range : 0.0 - 10.0 /100 WBCs. The reference range was not used to interpret this result as normal/abnormal . NRBC x10^3 (test code <0.01 See_Comment [Auto mated = 8717393103) message] The system which generated this result transmit bhavik reference range : 10*3/?L. The reference range was not used to interpret this result as normal/abnormal . GRAN MAT (NEUT) % 69.9 % (test code = 770-8) IMM GRAN % (test code 9.30 % = 1689890701) LYMPH % (test code = 11.5 % 736-9) MONO % (test code = 6.9 % 5905-5) EOS % (test code = 1.7 % 713-8) BASO % (test code = 0.7 % 706-2) GRAN MAT x10^3(ANC) 10.59 10*3/uL 1.99-6.95 H (test code = 4160139919) IMM GRAN x10^3 (test 1.40 10*3/uL 0-0.06 H code = 3506990950) LYMPH x10^3 (test code 1.74 10*3/uL 1.09-3.23 = 731-0) MONO x10^3 (test code 1.04 10*3/uL 0.36-1.02 H = 742-7) EOS x10^3 (test code = 0.25 10*3/uL 0.06-0.53 711-2) BASO x10^3 (test code 0.11 10*3/uL 0.01-0.09 H = 704-7) BANDS (test code = Increased A 9115029880) Lab Interpretation Abnormal (test code = 81837-4) [facility] METABOLIC PANEL (NA, K, CL, CO2, GLUCOSE, BUN, CREATININE, CA)2020-03-05 12:40:00 Test Item Value Reference Range Interpretation Comments NA (test code = 131 mmol/L 135-145 L 1756489425) K (test code = 4.4 mmol/L 3.5-5 3527230569) CL (test code = 106 mmol/L 98-108 9254241206) CO2 TOTAL (test code = 16 mmol/L 23-31 L 9215023533) AGAP (test code = 2-16 3579137012) BUN (test code = 43 mg/dL 7-23 H 8576475296) GLUCOSE (test code = 189 mg/dL 70-110 H 9589422805) CREATININE (test code = 2.68 mg/dL 0.6-1.25 H 9889086288) CALCIUM (test code = 7.8 mg/dL 8.6-10.6 L 9020520818) eGFR Calculation mL/min/1.73m2 (Non-) (test code = 1930574755) eGFR Calculation mL/min/1.73m2 () (test code = 0902574629) JACOB (test code = JACOB) Association of Glomerular Filtration Rate (GFR) and Staging of Kidney Disease* + --+ --+ ------+| GFR (mL/min/1.73 m2) ?| With Kidney Damage ?| ?Without Kidney Damage+ --------+ --------+ +| ?>90 ?| ?Stage one ?| ? Normal ?+ ---+ ---+ -------+| ?60-89 ?| ?Stage two ?| ? Decreased GFR ? + --+ --+ ------+| ?30-59 ?| ?Stage three ?| ? Stage three ? + --+ --+ ------+| ?15-29 ?| ?Stage four ? | ? Stage four ?+ ---+ ---+ -------+| ?<15 (or dialysis) ? ?| ?Stage five ? | ? Stage five ?+ ---+ ---+ -------+ *Each stage assumes the associated GFR level has been in effect for at least three months. ?Stages 1 to 5, with or without kidney disease, indicate chronic kidney disease. Notes: Determination of stages one and two (with eGFR >59mL/min/1.73 m2) requires estimation of kidney damage for at least three months as defined by structural or functional abnormalities of the kidney, manifested by either:Pathological abnormalities or Markers of kidney damage (including abnormalities in the composition of the blood or urine or abnormalities in imaging tests). Lab Interpretation Abnormal (test code = 34249-6) [facility] 10:54:00 Test Item Value Reference Range Interpretation Comments POCT GLU (test code = 2916693079) 175 mg/dL 70-110 H Lab Interpretation (test code = Abnormal 55084-8) [facility] [id number] 05:48:04 Normal renal sonogram. No evidence of hydronephrosis. Preliminary Report Dictated by Resident: Zain Johnson MD., have reviewed this study and agree with theabove report.EXAM: US RETROPERITONEAL LIMITED HISTORY: new CKD, diabetic nephropathy . COMPARISON: None. FINDINGS: Survey imaging of the kidneys with grayscale and color Doppler images wereobtained. The kidneys are normal in size, contour and echotexture. No focal lesionsare identified. Symmetric blood flow is seen on color Doppler images. Nohydronephrosis or obstructive urolithiasis is present. No perinephriccollections. [facility], Radiant Results Inft User - 03/04/2020 11:49 PM CSTEXAM: US RETROPERITONEAL LIMITEDHISTORY: new CKD, diabetic nephropathy .COMPARISON: None.FINDINGS: Survey imaging of the kidneys with grayscaleand color Doppler images wereobtained.The kidneys are normal in size, contour and echotexture. No focal lesionsare identified. Symmetric blood flow is seen on color Doppler images. Nohydronephrosis or obstructive urolithiasis is present. No perinephriccollections.IMPRESSIONNormal renal sonogram. No evidence of hydronephrosis.Preliminary Report Dictated by Resident: Zain Trejo MD., have reviewed this study and agree with theabove report. [facility] GLUCOSE (AUTOMATED)2020-03-05 05:24:00 Test Item Value Reference Range Interpretation Comments POCT GLU (test code = 9913547966) 215 mg/dL 70-110 H Lab Interpretation (test code = Abnormal 21306-6) [facility] GLUCOSE (AUTOMATED)2020-03-05 00:03:00 Test Item Value Reference Range Interpretation Comments POCT GLU (test code = 7548118403) 328 mg/dL 70-110 H Lab Interpretation (test code = Abnormal 11032-4) [facility] GLUCOSE (AUTOMATED)2020-03-04 21:20:00 Test Item Value Reference Range Interpretation Comments POCT GLU (test code = 8781349374) 316 mg/dL 70-110 H Lab Interpretation (test code = Abnormal 41456-5) [facility] GLUCOSE (AUTOMATED)2020-03-04 18:38:00 Test Item Value Reference Range Interpretation Comments POCT GLU (test code = 0275991389) 280 mg/dL 70-110 H Lab Interpretation (test code = Abnormal 47351-1) [facility] [id number] 18:29:00 Test Item Value Reference Range Interpretation Comments CRP (test code = 5379526255) 14.2 mg/dL <0.8 H Lab Interpretation (test code = Abnormal 03883-8) [facility] GLUCOSE (AUTOMATED)2020-03-04 13:44:00 Test Item Value Reference Range Interpretation Comments POCT GLU (test code = 8358053490) 198 mg/dL 70-110 H Lab Interpretation (test code = Abnormal 79920-4) [facility] GLUCOSE (AUTOMATED)2020-03-04 10:27:00 Test Item Value Reference Range Interpretation Comments POCT GLU (test code = 3749174983) 208 mg/dL 70-110 H Lab Interpretation (test code = Abnormal 67200-0) [facility] WITH [id number] 10:16:00 Test Item Value Reference Range Interpretation Comments WBC (test code = See_Comment H [Automated 6690-2) message] The system which generated this result transmit bhavik reference range : 4.20 - 10.70 10*3/?L. The reference range was not used to interpret this result as normal/abnormal . RBC (test code = See_Comment L [Automated 789-8) message] The system which generated this result transmit bhavik reference range : 4.26 - 5.52 10*6/?L. The reference range was not used to interpret this result as normal/abnormal . HGB (test code = 9.6 g/dL 12.2-16.4 L 718-7) HCT (test code = 29.3 % 38.4-49.3 L 4544-3) MCV (test code = 91.3 fL 81.7-95.6 787-2) MCH (test code = 29.9 pg 26.1-32.7 785-6) MCHC (test code = 32.8 g/dL 31.2-35 786-4) RDW-SD (test code = 41.3 fL 38.5-51.6 87304-9) RDW-CV (test code = 12.4 % 12.1-15.4 788-0) PLT (test code = See_Comment [Automated 777-3) message] The system which generated this result transmit bhavik reference range : 150 - 328 10*3/ ?L. The reference range was not u sed to interpret th is result as normal/abnormal . MPV (test code = 10.5 fL 9.8-13 21336-4) NRBC/100 WBC (test See_Comment [Automat ed code = 8901265431) message] The system which generated this result transmit bhavik reference range : 0.0 - 10.0 /100 WBCs. The reference range was not used to interpret this result as normal/abnormal . NRBC x10^3 (test code <0.01 See_Comment [Auto mated = 3337276206) message] The system which generated this result transmit bhavik reference range : 10*3/?L. The reference range was not used to interpret this result as normal/abnormal . GRAN MAT (NEUT) % 75.4 % (test code = 770-8) IMM GRAN % (test code 5.80 % = 9477360408) LYMPH % (test code = 10.4 % 736-9) MONO % (test code = 6.7 % 5905-5) EOS % (test code = 1.3 % 713-8) BASO % (test code = 0.4 % 706-2) GRAN MAT x10^3(ANC) 10.86 10*3/uL 1.99-6.95 H (test code = 6846930246) IMM GRAN x10^3 (test 0.83 10*3/uL 0-0.06 H code = 0071366708) LYMPH x10^3 (test code 1.49 10*3/uL 1.09-3.23 = 731-0) MONO x10^3 (test code 0.96 10*3/uL 0.36-1.02 = 742-7) EOS x10^3 (test code = 0.18 10*3/uL 0.06-0.53 711-2) BASO x10^3 (test code 0.06 10*3/uL 0.01-0.09 = 704-7) BANDS (test code = Increased A 1942340090) Lab Interpretation Abnormal (test code = 37869-2) [facility] METABOLIC PANEL (NA, K, CL, CO2, GLUCOSE, BUN, CREATININE, CA)2020-03-04 09:09:00 Test Item Value Reference Range Interpretation Comments NA (test code = 134 mmol/L 135-145 L 9612237483) K (test code = 4.4 mmol/L 3.5-5 7665436828) CL (test code = 109 mmol/L 98-108 H 4795040868) CO2 TOTAL (test code = 20 mmol/L 23-31 L 9355191491) AGAP (test code = 2-16 5717405097) BUN (test code = 51 mg/dL 7-23 H 9325429225) GLUCOSE (test code = 214 mg/dL 70-110 H 1524006267) CREATININE (test code = 2.70 mg/dL 0.6-1.25 H 6744057694) CALCIUM (test code = 7.6 mg/dL 8.6-10.6 L 4294255728) eGFR Calculation mL/min/1.73m2 (Non-) (test code = 7113170264) eGFR Calculation mL/min/1.73m2 () (test code = 1500261924) JACOB (test code = JACOB) Association of Glomerular Filtration Rate (GFR) and Staging of Kidney Disease* + --+ --+ ------+| GFR (mL/min/1.73 m2) ?| With Kidney Damage ?| ?Without Kidney Damage+ --------+ --------+ +| ?>90 ?| ?Stage one ?| ? Normal ?+ ---+ ---+ -------+| ?60-89 ?| ?Stage two ?| ? Decreased GFR ? + --+ --+ ------+| ?30-59 ?| ?Stage three ?| ? Stage three ? + --+ --+ ------+| ?15-29 ?| ?Stage four ? | ? Stage four ?+ ---+ ---+ -------+| ?<15 (or dialysis) ? ?| ?Stage five ? | ? Stage five ?+ ---+ ---+ -------+ *Each stage assumes the associated GFR level has been in effect for at least three months. ?Stages 1 to 5, with or without kidney disease, indicate chronic kidney disease. Notes: Determination of stages one and two (with eGFR >59mL/min/1.73 m2) requires estimation of kidney damage for at least three months as defined by structural or functional abnormalities of the kidney, manifested by either:Pathological abnormalities or Markers of kidney damage (including abnormalities in the composition of the blood or urine or abnormalities in imaging tests). Lab Interpretation Abnormal (test code = 32225-5) [facility] GLUCOSE (AUTOMATED)2020-03-04 06:42:00 Test Item Value Reference Range Interpretation Comments POCT GLU (test code = 3842277551) 225 mg/dL 70-110 H Lab Interpretation (test code = Abnormal 49735-2) [facility] GLUCOSE (AUTOMATED)2020-03-04 02:33:00 Test Item Value Reference Range Interpretation Comments POCT GLU (test code = 9685144218) 309 mg/dL 70-110 H Lab Interpretation (test code = Abnormal 95386-4) [facility] METABOLIC PANEL (NA, K, CL, CO2, GLUCOSE, BUN, CREATININE, CA)2020-03-03 23:44:00 Test Item Value Reference Range Interpretation Comments NA (test code = 132 mmol/L 135-145 L 4483858811) K (test code = 4.3 mmol/L 3.5-5 3629603123) CL (test code = 107 mmol/L 98-108 2811314042) CO2 TOTAL (test code = 20 mmol/L 23-31 L 1649128255) AGAP (test code = 2-16 1522754661) BUN (test code = 52 mg/dL 7-23 H 4843492375) GLUCOSE (test code = 279 mg/dL 70-110 H 2341872159) CREATININE (test code = 2.79 mg/dL 0.6-1.25 H 8982081125) CALCIUM (test code = 7.5 mg/dL 8.6-10.6 L 9469328748) eGFR Calculation mL/min/1.73m2 (Non-) (test code = 4777812047) eGFR Calculation mL/min/1.73m2 () (test code = 4579738931) JACOB (test code = JACOB) Association of Glomerular Filtration Rate (GFR) and Staging of Kidney Disease* + --+ --+ ------+| GFR (mL/min/1.73 m2) ?| With Kidney Damage ?| ?Without Kidney Damage+ --------+ --------+ +| ?>90 ?| ?Stage one ?| ? Normal ?+ ---+ ---+ -------+| ?60-89 ?| ?Stage two ?| ? Decreased GFR ? + --+ --+ ------+| ?30-59 ?| ?Stage three ?| ? Stage three ? + --+ --+ ------+| ?15-29 ?| ?Stage four ? | ? Stage four ?+ ---+ ---+ -------+| ?<15 (or dialysis) ? ?| ?Stage five ? | ? Stage five ?+ ---+ ---+ -------+ *Each stage assumes the associated GFR level has been in effect for at least three months. ?Stages 1 to 5, with or without kidney disease, indicate chronic kidney disease. Notes: Determination of stages one and two (with eGFR >59mL/min/1.73 m2) requires estimation of kidney damage for at least three months as defined by structural or functional abnormalities of the kidney, manifested by either:Pathological abnormalities or Markers of kidney damage (including abnormalities in the composition of the blood or urine or abnormalities in imaging tests). Lab Interpretation Abnormal (test code = 71408-0) [facility] [id number] 22:56:00 Test Item Value Reference Range Interpretation Comments ESR (test code = See_Comment H [Automated message] [id number]) The system [employer] generated this result transmitted ref erence range: 0 - 10 m m/HR. The reference r gato was not used to interpret this result as normal/abnor mal. Lab Interpretation (test Abnormal code = 01118-6) [facility]2020-03-03 22:56:00 Test Item Value Reference Range Interpretation Comments POCT GLU (test code = 3797298752) 243 mg/dL 70-110 H Lab Interpretation (test code = Abnormal 12600-0) [facility] COVID [id number] 20:54:00COVID DMT InterpretationInterpretation/Recommendations: Molecular NAAT Tests for Active Infection with the SARS-CoV-2 Virus: This result indicates that the patient has tested negative on one occasion for the SARS-CoV-2 virus that causes COVID-19 illness. If the patient is asymptomatic, this most likely indicates that the patient does not have an active infection with the SARS-CoV-2 virus. If the patient develops symptoms concerning for COVID-19 illness, a repeat NAAT test (PCR, Rapid ID Now, etc.) should be performed at which time the SARS-CoV-2 virus - if present - may have reached a detectable viral load (usually peaking by the end of the first week of symptoms). Tests for IgM and/or IgG Antibodies to SARS-CoV-2 Virus: Testing for IgM and IgG antibodies 1-3 weeks after illness onset will indicate whether the patient has produced antibodies to the virus. At this time, it is not known if the production of antibodies - specifically IgG antibodies - indicates whether the patient is immune to future infections with the SARS-CoV-2 virus. ? ? Interpretation Result Comments:These interpretation comments are based upon aggregateCOVID-19 test results in [facility]. They apply to the following tests offered at [facility] and assume the acceptable specimen type(s) were used: A. Tests for the Identification of SARS-CoV-2 RNA (Molecular NAAT Tests): ? ? ?- SARS-CoV-2 PCR assays including Nineveh Aptima, Nineveh Fusion, Urias RealTime, and Secondbrain Xpert Xpress. ? ? ?- SARS-CoV-2 Rapid ID NOW by the ID NOW assay. ? B. Tests for the Identification of SARS-CoV-2 Antibodies: ? ? ?- Chemiluminescent immunoassays including Access SARS-CoV-2 IgM (DXI 600), TrochetS Ucbl-MQYV-QnD-2 IgG (Vitros 5600 and Vitros 3600), and Urias SARS-CoV-2 IgG (DIRECTOR OF CAPITAL GIVING ?I System). These interpretations are autopopulated into [facility] based on computerized algorithms matching an interpretation code to the patient's set of test results, and a clinical pathologist evaluates the comments for accuracy. However, these comments do not consider testing a patient may have had outside of the [facility] system. If results for COVID-19 infection continue to be negative in the context of a suspected viral respiratory illness, it is possible the patient may have an infection with another respiratory virus. Influenza testing and a respiratory pathogen panel if clinically indicated may be beneficial in this setting. [facility] LABORATORY SERVICESCOVID BanookcUKLQ-SsN-1 Rapid ID NOW (no units) ? ? Date ? Value ? 03/03/2020 ? Not Detected ? [facility] SERVICESUn[facility]SE (AUTOMATED)2020-03-03 20:16:00 Test Item Value Reference Range Interpretation Comments POCT GLU (test code = 1854055885) 321 mg/dL 70-110 H Lab Interpretation (test code = Abnormal 01848-5) [facility]2020-03-03 17:54:00 Test Item Value Reference Range Interpretation Comments POCT GLU (test code = 3495797560) 359 mg/dL 70-110 H Lab Interpretation (test code = Abnormal 58561-2) [facility]enUrine [id number] 13:24:00 Test Item Value Reference Range Interpretation Comments URINE CULTURE (test No aerobic growth (< code = 630-4) 1000 CFU/mL) [facility]enCORON[facility] COVID-19 [id number] 12:36:00 Test Item Value Reference Range Interpretation Comments SARS-CoV-2 Rapid ID NOW Not Detected Not Detected (test code = 24339-4) JACOB (test code = JACOB) ID NOW COVID-19 Assay is an isothermal nucleic acid amplification test intended for the qualitative detection of nucleic acid from SARS-CoV-2 viral RNA in nasopharyngeal ([employer] DEVELOPER) specimens. It is used under Emergency Use Authorization (EUA) by FDA. The limit of detection (LOD) of the assay is 125 Genome Equivalents/mL. A positive result is indicative of the presence of SARS-CoV-2 RNA. ?Clinical correlation with patient history and other diagnostic information is necessary to determine patient infection status. A negative (Not Detected) result does not preclude SARS-CoV-2 infection. In patients with clinical symptoms and other tests that are consistent with SARS-CoV-2 infection, negative results should be treated as presumptive negative and a new specimen should be tested with alternative PCR molecular test. Invalid: Please collect a new specimen for repeat patient testing if clinically indicated. Lab Interpretation Normal (test code = 43385-3) [facility]enPOMN GLU[facility]SE (AUTOMATED)2020-03-03 12:12:00 Test Item Value Reference Range Interpretation Comments POCT GLU (test code = 3143677547) 352 mg/dL 70-110 H Lab Interpretation (test code = Abnormal 92065-4) [facility] WITH [id number] 10:54:00 Test Item Value Reference Range Interpretation Comments WBC (test code = See_Comment H [Automated 6690-2) message] The system which generated this result transmit bhavik reference range : 4.20 - 10.70 10*3/?L. The reference range was not used to interpret this result as normal/abnormal . RBC (test code = See_Comment L [Automated 789-8) message] The system which generated this result transmit bhavik reference range : 4.26 - 5.52 10*6/?L. The reference range was not used to interpret this result as normal/abnormal . HGB (test code = 10.3 g/dL 12.2-16.4 L 718-7) HCT (test code = 31.4 % 38.4-49.3 L 4544-3) MCV (test code = 91.3 fL 81.7-95.6 787-2) MCH (test code = 29.9 pg 26.1-32.7 785-6) MCHC (test code = 32.8 g/dL 31.2-35 786-4) RDW-SD (test code = 40.7 fL 38.5-51.6 20521-3) RDW-CV (test code = 12.2 % 12.1-15.4 788-0) PLT (test code = See_Comment H [Automated 777-3) message] The system which generated this result transmit bhavik reference range : 150 - 328 10*3/ ?L. The reference range was not u sed to interpret th is result as normal/abnormal . MPV (test code = 11.0 fL 9.8-13 37948-1) NRBC/100 WBC (test See_Comment [Automat ed code = 2841764317) message] The system which generated this result transmit bhavik reference range : 0.0 - 10.0 /100 WBCs. The reference range was not used to interpret this result as normal/abnormal . NRBC x10^3 (test code <0.01 See_Comment [Auto mated = 0368087526) message] The system which generated this result transmit bhavik reference range : 10*3/?L. The reference range was not used to interpret this result as normal/abnormal . GRAN MAT (NEUT) % 81.5 % (test code = 770-8) IMM GRAN % (test code 4.40 % = 6647061161) LYMPH % (test code = 6.5 % 736-9) MONO % (test code = 6.7 % 5905-5) EOS % (test code = 0.4 % 713-8) BASO % (test code = 0.5 % 706-2) GRAN MAT x10^3(ANC) 14.81 10*3/uL 1.99-6.95 H (test code = 6844896917) IMM GRAN x10^3 (test 0.79 10*3/uL 0-0.06 H code = 4533236439) LYMPH x10^3 (test code 1.18 10*3/uL 1.09-3.23 = 731-0) MONO x10^3 (test code 1.22 10*3/uL 0.36-1.02 H = 742-7) EOS x10^3 (test code = 0.07 10*3/uL 0.06-0.53 711-2) BASO x10^3 (test code 0.09 10*3/uL 0.01-0.09 = 704-7) BANDS (test code = Increased A 0140361405) Lab Interpretation Abnormal (test code = 17424-8) [facility] METABOLIC PANEL (NA, K, CL, CO2, GLUCOSE, BUN, CREATININE, CA)2020-03-03 10:23:00 Test Item Value Reference Range Interpretation Comments NA (test code = 135 mmol/L 135-145 4936108376) K (test code = 4.9 mmol/L 3.5-5 3608417639) CL (test code = 109 mmol/L 98-108 H 9122822444) CO2 TOTAL (test code = 19 mmol/L 23-31 L 8263799707) AGAP (test code = 2-16 0349500556) BUN (test code = 60 mg/dL 7-23 H 9452746681) GLUCOSE (test code = 360 mg/dL 70-110 H 3640262633) CREATININE (test code = 2.94 mg/dL 0.6-1.25 H 8513599303) CALCIUM (test code = 7.6 mg/dL 8.6-10.6 L 3311166111) eGFR Calculation mL/min/1.73m2 (Non-) (test code = 5682507454) eGFR Calculation mL/min/1.73m2 () (test code = 5373057536) JACOB (test code = JACOB) Association of Glomerular Filtration Rate (GFR) and Staging of Kidney Disease* + --+ --+ ------+| GFR (mL/min/1.73 m2) ?| With Kidney Damage ?| ?Without Kidney Damage+ --------+ --------+ +| ?>90 ?| ?Stage one ?| ? Normal ?+ ---+ ---+ -------+| ?60-89 ?| ?Stage two ?| ? Decreased GFR ? + --+ --+ ------+| ?30-59 ?| ?Stage three ?| ? Stage three ? + --+ --+ ------+| ?15-29 ?| ?Stage four ? | ? Stage four ?+ ---+ ---+ -------+| ?<15 (or dialysis) ? ?| ?Stage five ? | ? Stage five ?+ ---+ ---+ -------+ *Each stage assumes the associated GFR level has been in effect for at least three months. ?Stages 1 to 5, with or without kidney disease, indicate chronic kidney disease. Notes: Determination of stages one and two (with eGFR >59mL/min/1.73 m2) requires estimation of kidney damage for at least three months as defined by structural or functional abnormalities of the kidney, manifested by either:Pathological abnormalities or Markers of kidney damage (including abnormalities in the composition of the blood or urine or abnormalities in imaging tests). Lab Interpretation Abnormal (test code = 41301-7) [facility]2020-03-03 09:44:00 Test Item Value Reference Range Interpretation Comments POCT GLU (test code = 8279861044) 359 mg/dL 70-110 H Lab Interpretation (test code = Abnormal 07741-5) [facility] (NA, K, CL, CO2, GLUCOSE, BUN, CREATININE, CA)2020-03-03 05:37:00 Test Item Value Reference Range Interpretation Comments NA (test code = 136 mmol/L 135-145 0122602935) K (test code = 5.2 mmol/L 3.5-5 H 7863789788) CL (test code = 110 mmol/L 98-108 H 3563859380) CO2 TOTAL (test code = 18 mmol/L 23-31 L 3811009213) AGAP (test code = 2-16 8323965534) BUN (test code = 63 mg/dL 7-23 H 1009179501) GLUCOSE (test code = 284 mg/dL 70-110 H 8443320320) CREATININE (test code = 2.85 mg/dL 0.6-1.25 H 8250514985) CALCIUM (test code = 7.5 mg/dL 8.6-10.6 L 8523203177) eGFR Calculation mL/min/1.73m2 (Non-) (test code = 4332377670) eGFR Calculation mL/min/1.73m2 () (test code = 3460402983) JACOB (test code = JACOB) Association of Glomerular Filtration Rate (GFR) and Staging of Kidney Disease* + --+ --+ ------+| GFR (mL/min/1.73 m2) ?| With Kidney Damage ?| ?Without Kidney Damage+ --------+ --------+ +| ?>90 ?| ?Stage one ?| ? Normal ?+ ---+ ---+ -------+| ?60-89 ?| ?Stage two ?| ? Decreased GFR ? + --+ --+ ------+| ?30-59 ?| ?Stage three ?| ? Stage three ? + --+ --+ ------+| ?15-29 ?| ?Stage four ? | ? Stage four ?+ ---+ ---+ -------+| ?<15 (or dialysis) ? ?| ?Stage five ? | ? Stage five ?+ ---+ ---+ -------+ *Each stage assumes the associated GFR level has been in effect for at least three months. ?Stages 1 to 5, with or without kidney disease, indicate chronic kidney disease. Notes: Determination of stages one and two (with eGFR >59mL/min/1.73 m2) requires estimation of kidney damage for at least three months as defined by structural or functional abnormalities of the kidney, manifested by either:Pathological abnormalities or Markers of kidney damage (including abnormalities in the composition of the blood or urine or abnormalities in imaging tests). Lab Interpretation Abnormal (test code = 56246-2) [facility] GLUCOSE (AUTOMATED)2020-03-03 05:18:00 Test Item Value Reference Range Interpretation Comments POCT GLU (test code = 8484726994) 282 mg/dL 70-110 H Lab Interpretation (test code = Abnormal 88428-5) [facility] GLUCOSE (AUTOMATED)2020-03-03 02:04:00 Test Item Value Reference Range Interpretation Comments POCT GLU (test code = 1836415910) 147 mg/dL 70-110 H Lab Interpretation (test code = Abnormal 38525-8) [facility] METABOLIC PANEL (NA, K, CL, CO2, GLUCOSE, BUN, CREATININE, CA)2020-03-03 00:53:00 Test Item Value Reference Range Interpretation Comments NA (test code = 135 mmol/L 135-145 6846306726) K (test code = 4.7 mmol/L 3.5-5 7868708345) CL (test code = 108 mmol/L 98-108 0736053192) CO2 TOTAL (test code = 20 mmol/L 23-31 L 4636127873) AGAP (test code = 2-16 8649478158) BUN (test code = 64 mg/dL 7-23 H 6219446929) GLUCOSE (test code = 121 mg/dL 70-110 H 6309074110) CREATININE (test code = 2.94 mg/dL 0.6-1.25 H 4904629233) CALCIUM (test code = 7.8 mg/dL 8.6-10.6 L 3115397533) eGFR Calculation mL/min/1.73m2 (Non-) (test code = 2176242299) eGFR Calculation mL/min/1.73m2 () (test code = 6815725191) JACOB (test code = JACOB) Association of Glomerular Filtration Rate (GFR) and Staging of Kidney Disease* + --+ --+ ------+| GFR (mL/min/1.73 m2) ?| With Kidney Damage ?| ?Without Kidney Damage+ --------+ --------+ +| ?>90 ?| ?Stage one ?| ? Normal ?+ ---+ ---+ -------+| ?60-89 ?| ?Stage two ?| ? Decreased GFR ? + --+ --+ ------+| ?30-59 ?| ?Stage three ?| ? Stage three ? + --+ --+ ------+| ?15-29 ?| ?Stage four ? | ? Stage four ?+ ---+ ---+ -------+| ?<15 (or dialysis) ? ?| ?Stage five ? | ? Stage five ?+ ---+ ---+ -------+ *Each stage assumes the associated GFR level has been in effect for at least three months. ?Stages 1 to 5, with or without kidney disease, indicate chronic kidney disease. Notes: Determination of stages one and two (with eGFR >59mL/min/1.73 m2) requires estimation of kidney damage for at least three months as defined by structural or functional abnormalities of the kidney, manifested by either:Pathological abnormalities or Markers of kidney damage (including abnormalities in the composition of the blood or urine or abnormalities in imaging tests). Lab Interpretation Abnormal (test code = 72555-7) [facility] GLUCOSE (AUTOMATED)2020-03-03 00:16:00 Test Item Value Reference Range Interpretation Comments POCT GLU (test code = 1678455605) 101 mg/dL 70-110 Lab Interpretation (test code = Normal 74845-9) [facility] GLUCOSE (AUTOMATED)2020-03-02 23:18:00 Test Item Value Reference Range Interpretation Comments POCT GLU (test code = 3822382446) 100 mg/dL 70-110 Lab Interpretation (test code = Normal 47234-2) [facility] GLUCOSE (AUTOMATED)2020-03-02 22:36:00 Test Item Value Reference Range Interpretation Comments POCT GLU (test code = 4571493397) 143 mg/dL 70-110 H Lab Interpretation (test code = Abnormal 52358-6) [facility] GLUCOSE (AUTOMATED)2020-03-02 21:15:00 Test Item Value Reference Range Interpretation Comments POCT GLU (test code = 7769993667) 185 mg/dL 70-110 H Lab Interpretation (test code = Abnormal 16923-3) [facility] (NA, K, CL, CO2, GLUCOSE, BUN, CREATININE, CA)2020-03-02 20:35:00 Test Item Value Reference Range Interpretation Comments NA (test code = 137 mmol/L 135-145 4823884104) K (test code = 4.4 mmol/L 3.5-5 2909141189) CL (test code = 107 mmol/L 98-108 5336090101) CO2 TOTAL (test code = 21 mmol/L 23-31 L 3102778531) AGAP (test code = 2-16 1282058979) BUN (test code = 70 mg/dL 7-23 H 2151558747) GLUCOSE (test code = 186 mg/dL 70-110 H 2913429378) CREATININE (test code = 3.04 mg/dL 0.6-1.25 H 0729788481) CALCIUM (test code = 7.8 mg/dL 8.6-10.6 L 9201489988) eGFR Calculation mL/min/1.73m2 (Non-) (test code = 1033804903) eGFR Calculation mL/min/1.73m2 () (test code = 1627094101) JACOB (test code = JACOB) Association of Glomerular Filtration Rate (GFR) and Staging of Kidney Disease* + --+ --+ ------+| GFR (mL/min/1.73 m2) ?| With Kidney Damage ?| ?Without Kidney Damage+ --------+ --------+ +| ?>90 ?| ?Stage one ?| ? Normal ?+ ---+ ---+ -------+| ?60-89 ?| ?Stage two ?| ? Decreased GFR ? + --+ --+ ------+| ?30-59 ?| ?Stage three ?| ? Stage three ? + --+ --+ ------+| ?15-29 ?| ?Stage four ? | ? Stage four ?+ ---+ ---+ -------+| ?<15 (or dialysis) ? ?| ?Stage five ? | ? Stage five ?+ ---+ ---+ -------+ *Each stage assumes the associated GFR level has been in effect for at least three months. ?Stages 1 to 5, with or without kidney disease, indicate chronic kidney disease. Notes: Determination of stages one and two (with eGFR >59mL/min/1.73 m2) requires estimation of kidney damage for at least three months as defined by structural or functional abnormalities of the kidney, manifested by either:Pathological abnormalities or Markers of kidney damage (including abnormalities in the composition of the blood or urine or abnormalities in imaging tests). Lab Interpretation Abnormal (test code = 22499-5) [facility]2020-03-02 20:09:00 Test Item Value Reference Range Interpretation Comments POCT GLU (test code = 5695870349) 187 mg/dL 70-110 H Lab Interpretation (test code = Abnormal 68653-7) [facility] RIGHT WO [id number] 19:40:24 Phlegmon positioned over the fourth and fifth MTP joints abutting theextensor tendons with osteomyelitis and septic arthritis involving thefifth MTP joint with early osteomyelitis involving the fourth metatarsalhead. Cellulitis and myositis. EXAM: MRI RIGHT FOOT HISTORY: Osteomyelitis suspected, foot swelling, diabetic COMPARISON: Radiographs dated 03/02/2020 TECHNIQUE AND FINDINGS: 3T multiplanar multiweighted MR imaging of the right foot was performed. Scattered signal voids with intermediate/increased T2 signal soft tissuefullness lies over the dorsum of the distal fourth and fifth metatarsalswith fluid distention of the fourth and fifth MTP joints. This fullnesslies just dorsal to the extensor tendons of the fourth and fifth rays.There is marked T2 signal increase with decreased T1 signal seen within thefifth metatarsal head and fifth digit proximal phalanx with areas ofcortical erosion along the fifth metatarsal head and proximal phalanx base.Less extensive T2 signal marrow changes are seen within the remaining fifthmetatarsal diaphysis with sparing of the articular base. Focal skin surfaceirregularity is seen over the lateral aspect of the fifth MTP joint/smalltoe. There is moderate T2 signal seen along the subcortical margins of thefourth metatarsal head. Subcortical cystic changes are noted at the levelof the first metatarsal head, the anterior subarticular margins of thecuneiforms and the navicular. The remaining bone marrow signal intensity isunremarkable. Diffuse subcutaneous and intramuscular T2 signal increase ispresent. [facility], Radiant Results Inft User - 03/02/2020 1:41 PM CSTEXAM:MRI RIGHT FOOTHISTORY: Osteomyelitis suspected, foot swelling, diabetic COMPARISON: Radiographsdated 03/02/2020TECHNIQUE AND FINDINGS:3T multiplanar multiweighted MR imaging of the right foot wasperformed.Scattered signal voids with intermediate/increased T2 signal soft tissuefullness lies overthe dorsum of the distal fourth and fifth metatarsalswith fluid distention of the fourth and fifth MTP joints. This fullnesslies just dorsal to the extensor tendons of the fourth and fifth rays.There is marked T2 signal increase with decreased T1 signal seen within thefifth metatarsal head and fifth digit proximal phalanx with areas ofcortical erosion along the fifth metatarsal head and proximal phalanx base.Less extensive T2 signal marrow changes are seen within the remaining fifthmetatarsal diaphysis with sparing of the articular base. Focal skin surfaceirregularity is seen over the lateral aspect of the fifth MTP joint/smalltoe. There is moderate T2 signal seen along the subcortical margins of thefourth metatarsal head. Subcortical cystic changes are noted at the levelof the first metatarsal head, the anterior subarticular margins of thecuneiforms and the navicular. The remaining bone marrow signal intensity isunremarkable. Diffuse subcutaneous and intramuscular T2 signal increase ispresent.IMPRESSIONPhlegmon positioned over the fourth and fifth MTP joints abutting theextensor tendons with osteomyelitis and septic arthritis involving thefifth MTP joint with early osteomyelitis involving the fourth metatarsalhead.Cellulitis and myositis.[facility] RIGHT WO [id number] 19:30:26Tibial talar joint effusion with fluid extending into the flexor hallucislongus tendon sheath. Myositis with ill- defined pockets of fluid adjacent to the flexor tendonslikely related to tenosynovitis. Soft tissue gas adjacent to the distal fifth metatarsal with fifthmetatarsal diaphyseal signal derangement likely related to osteomyelitis. EXAM: MRI RIGHT ANKLE HISTORY: assess osteomyelitis, rule out deep abscess COMPARISON: Foot radiographs dated 03/02/2020 TECHNIQUE AND FINDINGS: 3T multiplanar multiweighted MR imaging of the right ankle was performed. A moderate sized tibial talar joint effusion is present with fluidextravasating into the flexor hallucis longus tendon sheath at theposterior joint line. Degenerative cystic change is noted within the talarneck at the level of the sinus Tarsi roof. Scattered cystic changes withare also seen at the base of the anterior process of the calcaneus andwithin the navicular. A fracture nonunion of the lateral malleolus isnoted. An os navicularis is present. Soft tissue gas is seen over thedorsal soft tissues at the distal fifth metatarsal with intramedullary [id number] increase involving fifth metatarsal diaphysis. Thickening withinterstitial signal increase is seen about the plantar fascia at thecalcaneal insertion consistent with plantar fasciopathy.There is diffuseedema seen throughout the plantar musculature with ill-defined pockets offluid adjace nt to the flexor tendons. [facility], Radiant Results Inft User - 03/02/2020 1:31 PM CSTEXAM:MRI RIGHT ANKLE HISTORY: assess osteomyelitis, rule out deep abscess COMPARISON: Foot radiographs dated 03/02/2020TECHNIQUE AND FINDINGS:3T multiplanar multiweighted MR imaging of the right ankle was performed.A moderate sized tibial talar joint effusion is present with fluidextravasating into the flexor hallucis longus tendon sheath at theposterior joint line. Degenerative cystic change is noted within the talarneck at the level of the sinus Tarsi roof. Scattered cystic changes withare also seen at the base of the anterior process of the calcaneus andwithin the navicular. A fracture nonunion of the lateral malleolus isnoted. An os navicularis is present. Soft tissue gas is seen over thedorsal soft tissues at the distal fifth metatarsal with intramedullary H4famliz increase involving fifth metatarsal diaphysis. Thickening withinterstitial signal increase is seen about the plantar fascia at thecalcaneal insertion consistent with plantar fasciopathy. There is diffuseedema seen throughout the plantar musculature with ill-defined pockets offluid adjacent to the flexor tendons.IMPRESSIONTibial talar joint effusion with fluid extending into the flexor hallucislongus tendon sheath.Myositis with ill-defined pockets of fluid adjacent to the flexor tendonslikely related to tenosynovitis.Soft tissue gas adjacent to the distal fifth metatarsal with fifthmetatarsal diaphyseal signal derangement likely related to osteomyelitis. [facility]2020-03-02 18:58:00 Test Item Value Reference Range Interpretation Comments POCT GLU (test code = 2896548918) 196 mg/dL 70-110 H Lab Interpretation (test code = Abnormal 08507-9) [facility]MRSA / MSSA Screen by Geo [id number] 18:11:00 Test Item Value Reference Range Interpretation Comments MSSA Screen by Geo BAEZA (test code Negative Negative = 94520-7) MRSA/MSSA Positive? (test code = No No [id number]) Lab Interpretation (test code = Normal 82218-2) [facility]enC-REACTIVE [id number] 18:05:00 Test Item Value Reference Range Interpretation Comments CRP (test code = 6081732286) 30.5 mg/dL <0.8 H Lab Interpretation (test code = Abnormal 18303-7) [facility] GLUCOSE (AUTOMATED)2020-03-02 16:18:00 Test Item Value Reference Range Interpretation Comments POCT GLU (test code = 5107758844) 148 mg/dL 70-110 H Lab Interpretation (test code = Abnormal 02318-1) [facility] GLUCOSE (AUTOMATED)2020-03-02 15:23:00 Test Item Value Reference Range Interpretation Comments POCT GLU (test code = 5926993982) 165 mg/dL 70-110 H Lab Interpretation (test code = Abnormal 34266-9) [facility]enXR CHEST 1 [id number] 14:43:04 FINDINGS/IMPRESSION: The right costophrenic angle is not fully visualized. A left IJ CVC terminates at the venous confluence. No focal consolidation, pleural effusion, or pneumothorax. The cardiac silhouette is at the upper limit of normal in size. No acute osseous abnormality. Preliminary Report Dictated by Resident: Carlos Menendez I, Minh Infante MD., have reviewed this study and agree with the abovereport.EXAM: XR CHEST 1 VW CLINICAL INDICATION: L IJ COMPARISON: None TECHNIQUE: A frontal view of the chest was obtained [facility], Radiant Results Inft User - 03/02/2020 8:44 AM CSTEXAM: XR CHEST 1 VWCLINICAL INDICATION: L IJ COMPARISON: NoneTECHNIQUE: A frontal view of the chest was obtainedIMPRESSIONFIN DINGS/IMPRESSION:The right costophrenic angle is not fully visualized.A left IJ CVC terminates at the venous confluence.No focal consolidation, pleural effusion, or pneumothorax. The cardiac silhouetteis at the upper limit of normal in size.No acute osseous abnormality. Preliminary Report Dictated byResident: Minh Meng MD., have reviewed this study and agree with the abovereport.[facility] GLUCOSE (AUTOMATED)2020-03-02 13:53:00 Test Item Value Reference Range Interpretation Comments POCT GLU (test code = 6096881457) 253 mg/dL 70-110 H Lab Interpretation (test code = Abnormal 00155-7) [facility] GLUCOSE (AUTOMATED)2020-03-02 13:03:00 Test Item Value Reference Range Interpretation Comments POCT GLU (test code = 7655690143) 278 mg/dL 70-110 H Lab Interpretation (test code = Abnormal 76753-5) [facility] GLUCOSE (AUTOMATED)2020-03-02 12:09:00 Test Item Value Reference Range Interpretation Comments POCT GLU (test code = 0040743287) 338 mg/dL 70-110 H Lab Interpretation (test code = Abnormal 35709-9) [facility]XR [facility]+ VW [id number] 11:57:00 Osteomyelitis involving the articular margins of the fifth MTP joint withadjacent ulceration. EXAM:XR FOOT 3+ VW RIGHT HISTORY: osteomyeltis with cellulitis COMPARISON: None FINDINGS: Imaging of the right foot demonstrates calcaneal enthesophyte formation.Diffuse swelling is present. Diabetic type va scular calcifications arepresent.Focal ulceration over the lateral plantar fifth MTP joint is seen.Demineralization of the fifth metatarsal head, and fifth toe proximalphalanx base is seen. No other bony abnormality is seen. [facility], Radiant Results Inft User - 03/02/2020 5:58 AM CSTEXAM:XR FOOT 3+ VW RIG HTHISTORY:osteomyeltis with cellulitis COMPARISON:NoneFINDINGS: Imaging of the right foot demonstrates calcaneal enthesophyte formation.Diffuse swelling is present. Diabetic type vascular calcifications arepresent.Focal ulceration over the lateral plantar fifth MTP joint is seen.Demineralization of the fifth metatarsal head, and fifth toe proximalphalanx base is seen. No other bony abnormality is seen.IMPRESSIONOsteomyelitis involving the articular margins of the fifth MTP joint withadjacent ulceration.[facility] Basic Metabolic Panel (Na, K, Cl, CO2, Glucose, BUN, Creatinine, Ca)2020-03-02 11:48:00 Test Item Value Reference Range Interpretation Comments NA (test code = 133 mmol/L 135-145 L 3460879221) K (test code = 3.4 mmol/L 3.5-5 L 7823837291) CL (test code = 103 mmol/L 98-108 0676349419) CO2 TOTAL (test code = 20 mmol/L 23-31 L 1850557680) AGAP (test code = 2-16 6115631060) BUN (test code = 69 mg/dL 7-23 H 9483721258) GLUCOSE (test code = 382 mg/dL 70-110 H 4946388106) CREATININE (test code = 3.25 mg/dL 0.6-1.25 H 5141215258) CALCIUM (test code = 7.4 mg/dL 8.6-10.6 L 3785337879) eGFR Calculation mL/min/1.73m2 (Non-) (test code = 7581159624) eGFR Calculation mL/min/1.73m2 () (test code = 6419621648) JACOB (test code = JACOB) Association of Glomerular Filtration Rate (GFR) and Staging of Kidney Disease* + --+ --+ ------+| GFR (mL/min/1.73 m2) ?| With Kidney Damage ?| ?Without Kidney Damage+ --------+ --------+ +| ?>90 ?| ?Stage one ?| ? Normal ?+ ---+ ---+ -------+| ?60-89 ?| ?Stage two ?| ? Decreased GFR ? + --+ --+ ------+| ?30-59 ?| ?Stage three ?| ? Stage three ? + --+ --+ ------+| ?15-29 ?| ?Stage four ? | ? Stage four ?+ ---+ ---+ -------+| ?<15 (or dialysis) ? ?| ?Stage five ? | ? Stage five ?+ ---+ ---+ -------+ *Each stage assumes the associated GFR level has been in effect for at least three months. ?Stages 1 to 5, with or without kidney disease, indicate chronic kidney disease. Notes: Determination of stages one and two (with eGFR >59mL/min/1.73 m2) requires estimation of kidney damage for at least three months as defined by structural or functional abnormalities of the kidney, manifested by either:Pathological abnormalities or Markers of kidney damage (including abnormalities in the composition of the blood or urine or abnormalities in imaging tests). Lab Interpretation Abnormal (test code = 63704-6) [facility]enGlycosylated Hemoglobin (A1C)2020-03-02 11:35:00 Test Item Value Reference Range Interpretation Comments HGB A1C (test code = 4548-4) 13.6 % 4-6 H Lab Interpretation (test code = Abnormal 50066-5) [facility]enPO[facility]SE (AUTOMATED)2020-03-02 11:11:00 Test Item Value Reference Range Interpretation Comments POCT GLU (test code = 4953122184) 396 mg/dL 70-110 H Lab Interpretation (test code = Abnormal 99846-3) [facility]enURINALYSIS2020-11-29 10:38:00 Test Item Value Reference Range Interpretation Comments APPEARANCE (test code = Cloudy Clear A 7002891596) COLOR (test code = Yellow Yellow 0535173646) PH (test code = 4.8-8.0 2600973729) SP GRAVITY (test code = 1.003-1.030 8429261759) GLU U QUAL (test code = 500 mg/dL Normal A 7023720705) BLOOD (test code = 1+ Negative A 2304583132) KETONES (test code = 20 mg/dL Negative A 8848797004) PROTEIN (test code = 500 mg/dL Negative A 2887-8) UROBILIN (test code = Normal Normal 0894732746) BILIRUBIN (test code = Negative Negative 6304005284) NITRITE (test code = Negative Negative 8138798327) LEUK UNA (test code = Negative Negative 8185185184) RBC/HPF (test code = See_Comment [Autom ated message] 7474600477) The system [employer] generated this result transmit bhavik reference range : 0 - 3 HPF. The refe rence range was not u sed to interpret th is result as normal/abnormal . WBC/HPF (test code = See_Comment [Autom ated message] 5270108050) The system [employer] generated this result transmit bhavik reference range : 0 - 5 HPF. The refe rence range was not u sed to interpret th is result as normal/abnormal . BACTERIA (test code = Few Negative A 4678971325) MUCOUS (test code = Slight Negative LPF A 7055513972) Lab Interpretation (test Abnormal code = 26822-1) [facility]enSEDIMENTATION [id number] 10:22:00 Test Item Value Reference Range Interpretation Comments ESR (test code = See_Comment H [Automated message] 3868477973) The system [employer] generated this result transmitted ref erence range: 0 - 10 m m/HR. The reference r gato was not used to interpret this result as normal/abnor mal. Lab Interpretation (test Abnormal code = 00433-5) [facility]lingenOsmolality [id number] 10:05:00 Test Item Value Reference Range Interpretation Comments OSMOLALITY (test code = See_Comment HH [Au tomated message] 8717067722) The system [employer] generated this result transmitted ref erence range: 278 - 30 5 mOsm/kg. The reference range was not used to int erpret this result as normal/abnormal . Lab Interpretation (test Abnormal code = 10270-6) [facility]enPO[facility]SE (AUTOMATED)2020-03-02 10:01:00 Test Item Value Reference Range Interpretation Comments POCT GLU (test code = 2038118259) 465 mg/dL 70-110 HH Lab Interpretation (test code = Abnormal 15476-8) [facility] HarlingenBetahydroxy-[id number] 09:26:00 Test Item Value Reference Range Interpretation Comments BOH (test code = 2.7 mmol/L 5276077707) JACOB (test code = Normal Ranges: ? ? JACOB) Nonfasting ? Less than 0.1 mmol/L ? ? Overnight Fast ? ? ? Less than 0.4 mmol/L ? ? Fasting (1-2 weeks) ?6-8 mmol/L Test developed and characteristics determined by [facility] Laboratory Services. [facility] HarlingenMagnesium [id number] 09:02:00 Test Item Value Reference Range Interpretation Comments MAGNESIUM (test code = 0881815159) 2.0 mg/dL 1.7-2.4 Lab Interpretation (test code = Normal 17278-4) [facility]enPhosphorus [id number] 09:02:00 Test Item Value Reference Range Interpretation Comments PHOSPHORUS (test code = 5434923137) 3.6 mg/dL 2.5-5 Lab Interpretation (test code = Normal 95632-2) [facility] HarlingenCBC WITH [id number] 08:37:00 Test Item Value Reference Range Interpretation Comments WBC (test code = See_Comment H [Automated 6690-2) message] The system which generated this result transmitted reference range : 4.20 - 10.70 10*3/?L. The reference range was not used to interpret this result as normal/abnormal . RBC (test code = See_Comment L [Automated 789-8) message] The system which generated this result transmitted reference range : 4.26 - 5.52 10*6/?L. The reference range was not used to interpret this result as normal/abnormal . HGB (test code = 10.8 g/dL 12.2-16.4 L 718-7) HCT (test code = 31.7 % 38.4-49.3 L 4544-3) MCV (test code = 87.1 fL 81.7-95.6 787-2) MCH (test code = 29.7 pg 26.1-32.7 785-6) MCHC (test code = 34.1 g/dL 31.2-35 786-4) RDW-SD (test code = 37.5 fL 38.5-51.6 L 16289-4) RDW-CV (test code = 11.7 % 12.1-15.4 L 788-0) PLT (test code = See_Comment H [Automated 777-3) message] The system which generated this result transmitted reference range : 150 - 328 10*3/?L. The reference range was not used to interpret this result as normal/abnormal . MPV (test code = 10.9 fL 9.8-13 21692-4) NRBC/100 WBC (test See_Comment [Automat ed code = 1675870022) message] The system which generated this result transmitted reference range : 0.0 - 10.0 /100 WBCs. The reference range was not used to interpret this result as normal/abnormal . NRBC x10^3 (test code <0.01 See_Comment [Auto mated = 2838361819) message] The system which generated this result transmitted reference range : 10*3/?L. The reference range was not used to interpret this result as normal/abnormal . GRAN MAT (NEUT) % 86.9 % (test code = 770-8) IMM GRAN % (test code 2.70 % = 8840387234) LYMPH % (test code = 3.9 % 736-9) MONO % (test code = 6.3 % 5905-5) EOS % (test code = 0.0 % 713-8) BASO % (test code = 0.2 % 706-2) GRAN MAT x10^3(ANC) 23.93 10*3/uL 1.99-6.95 H (test code = 8223517519) IMM GRAN x10^3 (test 0.74 10*3/uL 0-0.06 H code = 9686773511) LYMPH x10^3 (test 1.08 10*3/uL 1.09-3.23 L code = 731-0) MONO x10^3 (test code 1.72 10*3/uL 0.36-1.02 H = 742-7) EOS x10^3 (test code <0.03 0.06-0.53 L = 711-2) BASO x10^3 (test code 0.05 10*3/uL 0.01-0.09 = 704-7) BANDS (test code = MARKED INCREASED A 9786568959) Lab Interpretation Abnormal (test code = 57442-0) [facility]lingenCOMP. METABOLIC PANEL (64587)2020-03-02 08:31:00 Test Item Value Reference Range Interpretation Comments NA (test code = 132 mmol/L 135-145 L 3091374779) K (test code = 4.0 mmol/L 3.5-5 3235191959) CL (test code = 97 mmol/L 98-108 L 0479360274) CO2 TOTAL (test code = 19 mmol/L 23-31 L 2482057957) AGAP (test code = 2-16 7023606717) BUN (test code = 71 mg/dL 7-23 H 9716901104) GLUCOSE (test code = 488 mg/dL 70-110 HH 6282437998) CREATININE (test code = 3.60 mg/dL 0.6-1.25 H 6744017055) TOTAL BILI (test code = 0.6 mg/dL 0.1-1.4 3112236507) CALCIUM (test code = 8.1 mg/dL 8.6-10.6 L 9868572767) T PROTEIN (test code = 7.1 g/dL 6.3-8.2 7186070634) ALBUMIN (test code = 3.0 g/dL 3.5-5 L 0411803610) ALK PHOS (test code = 131 U/L 34-122 H 3839525415) ALTv (test code = 17 U/L 5-50 1742-6) AST(SGOT) (test code = 30 U/L 13-40 1755237707) eGFR Calculation mL/min/1.73m2 (Non-) (test code = 6456022377) eGFR Calculation mL/min/1.73m2 () (test code = 9077794246) JACOB (test code = JACOB) Association of Glomerular Filtration Rate (GFR) and Staging of Kidney Disease* + --+ --+ ------+| GFR (mL/min/1.73 m2) ?| With Kidney Damage ?| ?Without Kidney Damage+ --------+ --------+ +| ?>90 ?| ?Stage one ?| ? Normal ?+ ---+ ---+ -------+| ?60-89 ?| ?Stage two ?| ? Decreased GFR ? + --+ --+ ------+| ?30-59 ?| ?Stage three ?| ? Stage three ? + --+ --+ ------+| ?15-29 ?| ?Stage four ? | ? Stage four ?+ ---+ ---+ -------+| ?<15 (or dialysis) ? ?| ?Stage five ? | ? Stage five ?+ ---+ ---+ -------+ *Each stage assumes the associated GFR level has been in effect for at least three months. ?Stages 1 to 5, with or without kidney disease, indicate chronic kidney disease. Notes: Determination of stages one and two (with eGFR >59mL/min/1.73 m2) requires estimation of kidney damage for at least three months as defined by structural or functional abnormalities of the kidney, manifested by either:Pathological abnormalities or Markers of kidney damage (including abnormalities in the composition of the blood or urine or abnormalities in imaging tests). Lab Interpretation Abnormal (test code = 35761-3) [facility]lingenPROTHROMBIN TIME / [id number] 08:20:00 Test Item Value Reference Range Interpretation Comments PROTIME PATIENT (test See_Comment H [Auto mated message] code = 5964-2) The system ich generated this result transmitted ref erence range: 10.1 - 1 2.6 Seconds. The reference range was not used to int erpret this result as normal/abnormal . INR (test code = 6301-6) Nor mal INR <1.1; Warfarin Therap eutic range 2.0 to 3. 0 or 2.5 to 3.5, dep ending upon the indica tions. Lab Interpretation (test Abnormal code = 50054-7) [facility] HarlingenaPTT2020-11-29 08:20:00 Test Item Value Reference Range Interpretation Comments APTT Patient (test code See_Comment L [Au tomated message] = 3173-2) The system whic h generated this result transmitted ref erence range: 26 - 36 Seconds. The reference range was not used to int erpret this result as normal/abnormal . Lab Interpretation (test Abnormal code = 57399-5) [facility]enAC PANEL 20 + LACTIC [id number] 07:57:00 Test Item Value Reference Range Interpretation Comments PH (test code = 2) 7.35-7.45 PCO2 (test code = See_Comment L [Automate d 7882744393) message] The sy stem which generated this result transmitted reference range : 35 - 45 mmHg. The reference range was not used to interpret this result as normal/abnormal . PO2 (test code = See_Comment [Automated 7421718737) message] The sy stem which generated this result transmitted reference range : 80 - 100 mmHg. The reference range was not used to interpret this result as normal/abnormal . HCO3 (test code = See_Comment L [Automate d 1795525420) message] The sy stem which generated this result transmitted reference range : 22 - 26 mEq/L. The reference range was not used to interpret this result as normal/abnormal . BE (test code = See_Comment L [Automated 0713715161) message] The sy stem which generated this result transmitted reference range : -3.0 - 3.0 mEq/ L. The reference r gato was not used to interpret this result as normal/abnormal . THB (test code = 13.7 g/dL 13.5-18 3683476266) %O2HB (test code = 97.2 % 94-99 7654089605) %COHB ART (test code = 0.0 % 0-1.5 8184332657) %METHB ART (test code = 0.3 % 0.4-1.5 L 7023972824) VOL%O2 ART (test code = 18.8 % 15-23 2314132960) NA (test code = 128 mmol/L 135-145 L 8782774352) K+ (test code = 4.1 mmol/L 3.5-5 5585990475) AC CA IONZ (test code = 4.50 mg/dL 4.5-5.3 2770476489) GLUCOSE (test code = 494 mg/dL 70-110 HH 3497117699) LACTIC ACID (test code 2.20 mmol/L = 1455976172) Lab Interpretation Abnormal (test code = 20276-0) [facility]enPOCT GL[facility]SE (AUTOMATED)2020-03-02 07:20:00 Test Item Value Reference Range Interpretation Comments POCT GLU (test code = 3515983468) 489 mg/dL 70-110 HH Lab Interpretation (test code = Abnormal 38929-5) [facility]
--- NOTE | 2022-03-24 18:27 | RAD REPORT ---
EXAM DESCRIPTION: CT - Stone Protocol - 03/24/2022 6:05 pm CLINICAL HISTORY: Abdominal pain./flank pain COMPARISON: None. TECHNIQUE: Computed axial tomography of the abdomen pelvis was obtained without oral or IV contrast. Lack of IV and oral contrast limits evaluation of solid organs, appendix, bowel, and vessels. Pattesron l reformatted images were obtained and reviewed. All CT scans are performed using dose optimization technique as appropriate and may include automated exposure control or mA/KV adjustment according to patient size. FINDINGS: Mild left hydronephrosis. A renal calculus is not seen. No ureteral calculus noted. A blad nena calculus is not seen. No right hydronephrosis. Small to moderate pericardial effusion The liver, spleen, pancreas and adrenals appear grossly normal The appendix is borderline enlarged. No stranding within the adjacent fat. No evidence of diverticulitis Moderate umbilical hernia A Schmorl's node invaginating into the superior vertebral endplate of T12 IMPRESSION: Mild left hydronephrosis. A left-sided calculus is not seen. Perhaps the patient has had a recently passed calculus. The appendix is borderline enlarged. This may be normal for the patient or indicate appendicitis and should be correlated clinically
[2022-03-24] MEDS ORDERED: TRAMADOL HCL 50 MG TAB ONE ×2 (19:23→19:27)
[2022-03-24] MEDS ORDERED: PROMETHAZINE INJ 25 MG/ML AMP ONE (20:02)
--- NOTE | 2022-03-24 20:02 | ER ---
Nurse's Notes [facility] Name: Cezar Wood Age: 52 yrs Sex: Male : 1970 Arrival Date: 03/24/2022 Time: 16:33 Bed 8 Private MD: Diagnosis: Hydronephrosis with flank pain, no obstruction Presentation: 03/24 17:11 Chief complaint: Patient states: left mid-low back pain that began today around 0300. aa5 Pt denies any injury. Coronavirus screen: At this time, the client does not indicate any symptoms associated with coronavirus-19. Ebola Screen: Patient denies travel to an Ebola-affected area in the 21 days before illness onset. Initial Sepsis Screen: Does the patient meet any 2 criteria? No. Patient's initial sepsis screen is negative. Does the patient have a suspected source of infection? No. Patient's initial sepsis screen is negative. Risk Assessment: Do you want to hurt yourself or someone else? Patient reports no desire to harm self or others. Onset of symptoms was March 2022. 17:11 Acuity: RAH 3 aa5 17:11 Method Of Arrival: Ambulatory aa5 Historical: - Allergies: 17:12 No Known Allergies; aa5 - PMHx: 17:12 ESRD; Dialysis MWF; Hypertensive disorder; Diabetes mellitus; aa5 - PSHx: 17:12 Left arm dialysis fistula; aa5 - Immunization history:: Adult Immunizations unknown. - Social history:: Smoking status: Patient denies any tobacco usage or history of. Screenin:19 [facility] ED Fall Risk Assessment (Adult) History of falling in the last 3 months, as6 including since admission No falls in past 3 months (0 pts) Confusion or Disorientation No (0 pts) Intoxicated or Sedated No (0 pts) Impaired Gait No (0 pts) Mobility Assist Device Used No (0 pt) Altered Elimination No (0 pt) Score/Fall Risk Level 0 - 2 = Low Risk. Abuse screen: Denies threats or abuse. Denies injuries from another. Nutritional screening: No deficits noted. Tuberculosis screening: No symptoms or risk factors identified. Assessment: 19:31 General: Appears uncomfortable, Behavior is calm, cooperative. Pain: Complains of pain as6 in left flank. Neuro: Level of Consciousness is awake, alert, obeys commands, Oriented to person, place, time, situation. Cardiovascular: Patient's skin is warm and dry. Respiratory: Respiratory effort is even, unlabored. Musculoskeletal: Reports pain in left flank. Vital Signs: 17:13 BP 122 / 78; Pulse 102; Resp 16 S; Temp 98.2(O); Pulse Ox 99% on R/A; Weight 129.27 kg aa5 (R); Height 5 ft. 8 in. (172.72 cm) (R); 19:30 BP 144 / 66; Pulse 95; Resp 18 S; Pulse Ox 98% on R/A; as6 20:20 BP 159 / 88; Pulse 102; Resp 18 S; Pulse Ox 98% on R/A; as6 17:13 Body Mass Index 43.33 (129.27 kg, 172.72 cm) aa5 ED Course: 16:33 Patient arrived in ED. mr 16:42 Aidee Goodwin FNP-C is [facility]. snw 16:42 Hiram Mata MD is Attending Physician. snw 17:11 Triage completed. aa5 17:11 Arm band placed on. aa5 18:06 CT Stone Protocol In Process Unspecified. EDMS 19:10 Ash Rose, RN is Primary Nurse. as6 20:19 Placed in gown. Bed in low position. Call light in reach. Side rails up X2. as6 20:20 No provider procedures requiring assistance completed. Patient did not have IV access as6 during this emergency room visit. Administered Medications: 19:25 Drug: traMADol 50 mg Route: PO; as6 20:18 Follow up: Response: No adverse reaction as6 20:04 Drug: Phenergan (promethazine) 25 mg Route: IM; Site: right deltoid; as6 20:19 Follow up: Response: No adverse reaction as6 Medication: 20:19 VIS not applicable for this client. as6 Outcome: 20:01 Discharge ordered by . snw 20:19 Discharged to home ambulatory. as6 20:19 Condition: stable 20:19 Discharge instructions given to patient, Instructed on discharge instructions, follow up and referral plans. medication usage, Demonstrated understanding of instructions, follow-up care, medications, Prescriptions given X 1. 20:21 Patient left the ED. as6 Signatures: Dispatcher [employer] EDMS Aidee Goodwin FNP-C PERFECT BINDER OPERATOR-Csnw Gabby Mendoza mr Ray, Marya, RN RN aa5 Ash Rose, RN RN as6
--- NOTE | 2022-03-24 20:02 | EDPHYS ---
Physician Documentation [facility] Name: Cezar Wood Age: 52 yrs Sex: Male : 1970 Arrival Date: 03/24/2022 Time: 16:33 Bed 8 Private MD: ED Physician Hiram Mata HPI: 03/24 20:14 This 52 yrs old Male presents to ER via Ambulatory with complaints of Back Pain. snw 20:14 This 52 yrs old Male presents to ER via Ambulatory with complaints of Back Pain. snw 20:14 The patient presents with pain left flank pain. The symptoms are located in the left snw mid back. Onset: The symptoms/episode began/occurred acutely, and became persistent. The pain does not radiate. Associated signs and symptoms: Pertinent positives: none. The problem was sustained pt had 4 hours of dialysis today even though he was below his dry weight. No hypotension in ED. Severity of symptoms: At their worst the symptoms were mild, moderate. It is unknown whether or not the patient has had similar symptoms in the past. dialysis. Historical: - Allergies: 17:12 No Known Allergies; aa5 - PMHx: 17:12 ESRD; Dialysis MWF; Hypertensive disorder; Diabetes mellitus; aa5 - PSHx: 17:12 Left arm dialysis fistula; aa5 - Immunization history:: Adult Immunizations unknown. - Social history:: Smoking status: Patient denies any tobacco usage or history of. ROS: 20:14 Constitutional: Negative for fever, chills, and weight loss, Eyes: Negative for injury, snw pain, redness, and discharge, ENT: Negative for injury, pain, and discharge, Neck: Negative for injury, pain, and swelling, Cardiovascular: Negative for chest pain, palpitations, and edema, Respiratory: Negative for shortness of breath, cough, wheezing, and pleuritic chest pain, Abdomen/GI: Negative for abdominal pain, nausea, vomiting, diarrhea, and constipation, : Negative for injury, bleeding, discharge, and swelling, MS/Extremity: Negative for injury and deformity, Skin: Negative for injury, rash, and discoloration, Neuro: Negative for headache, weakness, numbness, tingling, and seizure, Psych: Negative for depression, anxiety, suicide ideation, homicidal ideation, and hallucinations. 20:14 Back: Positive for flank pain, on the left. Exam: 18:11 Constitutional: This is a well developed, well nourished patient who is awake, alert, snw and in no acute distress. Head/Face: Normocephalic, atraumatic. Eyes: Pupils equal round and reactive to light, extra-ocular motions intact. Lids and lashes normal. Conjunctiva and sclera are non-icteric and not injected. Cornea within normal limits. Periorbital areas with no swelling, redness, or edema. ENT: Nares patent. No nasal discharge, no septal abnormalities noted. Tympanic membranes are normal and external auditory canals are clear. Oropharynx with no redness, swelling, or masses, exudates, or evidence of obstruction, uvula midline. Mucous membranes moist. Neck: Trachea midline, no thyromegaly or masses palpated, and no cervical lymphadenopathy. Supple, full range of motion without nuchal rigidity, or vertebral point tenderness. No Meningismus. Chest/axilla: Normal chest wall appearance and motion. Nontender with no deformity. No lesions are appreciated. 18:11 Respiratory: Lungs have equal breath sounds bilaterally, clear to auscultation and percussion. No rales, rhonchi or wheezes noted. No increased work of breathing, no retractions or nasal flaring. Abdomen/GI: Soft, non-tender, with normal bowel sounds. No distension or tympany. No guarding or rebound. No evidence of tenderness throughout. 18:11 Cardiovascular: Rate: tachycardic, Rhythm: regular, Pulses: no pulse deficits are appreciated. 18:11 Back: pain, that is moderate, ROM is normal, normal spinal alignment noted, CVA tenderness, that is moderate, is noted on the left. 18:12 Skin: Warm, dry with normal turgor. Normal color with no rashes, no lesions, and no snw evidence of cellulitis. MS/ Extremity: Pulses equal, no cyanosis. Neurovascular intact. Full, normal range of motion. Neuro: Awake and alert, GCS 15, oriented to person, place, time, and situation. Cranial nerves II-XII grossly intact. Motor strength 5/5 in all extremities. Sensory grossly intact. Cerebellar exam normal. Normal gait. Psych: Awake, alert, with orientation to person, place and time. Behavior, mood, and affect are within normal limits. Vital Signs: 17:13 BP 122 / 78; Pulse 102; Resp 16 S; Temp 98.2(O); Pulse Ox 99% on R/A; Weight 129.27 kg aa5 (R); Height 5 ft. 8 in. (172.72 cm) (R); 19:30 BP 144 / 66; Pulse 95; Resp 18 S; Pulse Ox 98% on R/A; as6 20:20 BP 159 / 88; Pulse 102; Resp 18 S; Pulse Ox 98% on R/A; as6 17:13 Body Mass Index 43.33 (129.27 kg, 172.72 cm) aa5 MDM: 17:35 Patient medically screened. snw 18:08 Data reviewed: vital signs, nurses notes. Data interpreted: Pulse oximetry: on room air snw is 99 %. Interpretation: normal. ED course: Pt taken to CT for CT stone exam. Pt remains in in [facility]. 20:02 Response to treatment: the patient's symptoms have mildly improved after treatment. snw Special discussion: Based on the history and exam findings, there is no indication for further emergent testing or inpatient evaluation. 03/24 17:36 Order name: CT Stone Protocol; Complete Time: 18:30 snw Administered Medications: 19:25 Drug: traMADol 50 mg Route: PO; as6 20:18 Follow up: Response: No adverse reaction as6 20:04 Drug: Phenergan (promethazine) 25 mg Route: IM; Site: right deltoid; as6 20:19 Follow up: Response: No adverse reaction as6 Disposition: 03/25 12:35 Co-signature as Attending Physician, Hiram Mata MD I agree with the assessment and rt plan of care. Disposition Summary: 03/24/22 20:01 Discharge Ordered Location: Home snw Condition: Stable snw Diagnosis - Hydronephrosis with flank pain, no obstruction snw Followup: snw - With: Emergency Department - When: As needed - Reason: Worsening of condition Followup: snw - With: Private Physician - When: 2 - 3 days - Reason: Recheck today's complaints, Continuance of care, Re-evaluation by your physician Discharge Instructions: - Discharge Summary Sheet snw - Flank Pain, Adult snw - Hydronephrosis snw Forms: - Medication Reconciliation Form snw - Thank You Letter snw - Antibiotic Education snw - Prescription Opioid Use snw Prescriptions: - promethazine 25 mg Oral Tablet - take 1 tablet by ORAL route every 12 hours As needed; 10 tablet; Refills: 0, snw Product Selection Permitted Signatures: Dispatcher [employer] EDAidee Wharton, CERTIFIED TEACHER ASSISTANT-C CERTIFIED TEACHER ASSISTANT-Csnw Marya Bell, RN RN aa5 Ash Rose RN RN as6 Hiram Mata MD MD rt Corrections: (The following items were deleted from the chart) 03/24 18:13 18:11 Back: pain, that is moderate, ROM is normal, normal spinal alignment noted, CVA snw tenderness, that is moderate, snw
[2022-03-24 20:33] VITALS: TEMP 98.2
[2022-03-24 20:34] VITALS: O2SAT 98
[2022-03-24 20:35] VITALS: BP 159/88
== END 2022-03-24 20:21 | disposition home or self-care (01) ==
LOC: ER 16:30
DX: N13.30 Unspecified hydronephrosis (principal); E11.22 Type 2 diabetes mellitus with diabetic chronic kidney disease; I12.0 Hypertensive chronic kidney disease with stage 5 chronic kidney disease or end stage renal disease; N18.6 End stage renal disease; Z99.2 Dependence on renal dialysis
CPT/HCPCS: 76377; 74176; J2550

== ENCOUNTER 2023-05-31 09:18 | Observation (INO) | payer OTHER ==
[2023-05-31 10:36] LABS: Absolute Lymphocytes (CBC) 1.2 K/uL (0.7-4.9); Hematocrit 29.1 % (39.6-49.0); Lymphocytes % 11.6 % (15.3-44.8); MCV 99.1 fL (80-100); MPV 7.8 fL (7.6-11.3); Platelets 249 thou/uL (152-406); RBC Red Blood Cell Count 2.94 M/uL (4.33-5.43)
[2023-05-31 10:38] LABS: Protime INR 1.14
[2023-05-31 11:02] LABS: Potassium 4.2 mEq/L (3.5-5.1); Troponin High Sensitivity 30.1 pg/mL (<58.9)
--- NOTE | 2023-05-31 11:14 | RAD REPORT ---
EXAM DESCRIPTION: CT - Chest For Pe Angio - 05/31/2023 10:49 am CLINICAL HISTORY: Chest pain COMPARISON: None. TECHNIQUE: Dynamically enhanced axial 3 mm thick images of the chest were obtained during administra tion of 100 mL Isovue 370 IV contrast. Coronal and oblique reconstruction images were generated and r eviewed. Exam utilizes a protocol for optimal evaluation of pulmonary arterial tree. Maximum intensity projections 3D imaging was utilized All CT scans are performed using dose optimization technique as appropriate and may include automated exposure control or mA/KV adjustment according to patient size. FINDINGS: A pulmonary embolus is not seen. A thoracic aortic aneurysm is not noted. A pleural effusion is not seen. Large pericardial effusion A lung consolidation is not present. IMPRESSION: Negative for a pulmonary embolism. Large pericardial effusion
--- NOTE | 2023-05-31 11:29 | EDPHYS ---
Physician Documentation [facility] Name: Cezar Wood Age: 53 yrs Sex: Male : 1970 Arrival Date: 05/31/2023 Time: 09:18 Bed 20 Private MD: ED Physician Davis Welsh HPI: 05/31 09:50 This 53 yrs old Male presents to ER via Unassigned with complaints of chest pain. rn 09:50 The patient or guardian reports chest pain that is located primarily in the anterior rn chest wall, left. Onset: 2 day(s) ago. The pain does not radiate. Associated signs and symptoms: Pertinent negatives: abdominal pain, diaphoresis, palpitations, shortness of breath, syncope, vomiting. The chest pain is described as sharp, stabbing. Duration: The patient or guardian reports multiple episodes, that are intermittent. Modifying factors: The symptoms are alleviated by nothing. the symptoms are aggravated by deep breath. Severity of pain: At its worst the pain was moderate in the emergency department the pain is unchanged. The patient has not experienced similar symptoms in the past. Patient reports was about to have surgery, ORIF, reported to nurse that has been having episodes of chest pain over the last 2 days. Reports left-sided sharp stabbing chest pain that is worse with a deep breath. Patient with history of DVT. Not on blood thinners at this time. No fever. No productive cough. Does not feel ill. Did fall 1 week ago, this is when he progressed, not sure if injured chest wall at the same time.. Historical: - PMHx: 10:33 diabetes mellitus; DIALYSIS MWF; ESRD; Hypertensive disorder; iw - PSHx: 10:33 Left arm dialysis fistula; iw - Immunization history:: Adult Immunizations up to date. - Family history:: not pertinent. - Social history:: Smoking status: Patient denies any tobacco usage or history of. Patient/guardian denies using alcohol. - Hospitalizations: : No recent hospitalization is reported. ROS: 09:50 Constitutional: Negative for fever, chills, and weight loss, Eyes: Negative for injury, rn pain, redness, and discharge, Neck: Negative for injury, pain, and swelling, Cardiovascular: Positive for chest pain Respiratory: Positive for left-sided pleuritic chest pain Abdomen/GI: Negative for abdominal pain, nausea, vomiting, diarrhea, and constipation, MS/Extremity: Negative for injury and deformity, Skin: Negative for injury, rash, and discoloration, Neuro: Negative for headache, weakness, numbness, tingling, and seizure, Exam: 09:50 Constitutional: This is a well developed, well nourished patient who is awake, alert, rn and in no acute distress. Cardiovascular: Regular rate and rhythm. No pulse deficits. Respiratory: Speaking full sentences, unlabored. No increased work of breathing, no retractions or nasal flaring. Abdomen/GI: Soft, nontender, no masses. No left upper quadrant tenderness or swelling. MS/ Extremity: Right BKA. Normal pulse left dorsalis pedis. No cyanosis Neuro: Awake and alert, GCS 15 Vital Signs: 11:11 BP 152 / 78; Pulse 67; Resp 18; Pulse Ox 96% on R/A; ld1 11:11 Temp 98; ld1 11:11 Weight 105.23 kg; Height 5 ft. 10 in. ; ld1 06/01 10:16 BP 146 / 78; Pulse 71; Resp 18; Temp 97.9(TE); Pulse Ox 96% on R/A; Pain 3/10; tl4 05/31 11:11 Body Mass Index 33.29 (105.23 kg, 177.8 cm) ld1 06/01 10:16 Pain Scale: Adult tl4 [place] Coma Score: 10:16 Eye Response: spontaneous(4). Motor Response: obeys commands(6). Verbal Response: tl4 oriented(5). Total: 15. MDM: 05/31 09:21 Patient medically screened. rn 10:02 ED course: Consulted with Dr. 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 Dr. Ramírez states since has dialysis scheduled tomorrow, okay to perform CT with contrast. He prefers dialysis in the next 24 hours after study.. 11:27 Differential diagnosis: acute pericarditis, coronary artery disease chest wall pain, rn costochondritis, gastroesophageal reflux disease (GERD), pleurisy, pneumonia, pneumothorax, pulmonary embolus, stable angina, thoracic aortic disection, unstable angina. HEART Score: History: Slightly Suspicious (0), ECG: Non specific repolarization disturbance / LBTB / PM (1), Age: > 45 and < 65 years (1), Risk Factors: 1 or 2 risk factors (1), Troponin: < or = 1 x Normal Limit (0), Total Score = 3. Data reviewed: vital signs, nurses notes, lab test result(s), EKG, radiologic studies, CT scan, plain films, and as a result, I will admit patient. Counseling: I had a detailed discussion with the patient and/or guardian regarding the historical points, exam findings, and any diagnostic results supporting the discharge/admit diagnosis, lab results, radiology results, the need for further work-up and treatment in the hospital. 11:27 ED course: Patient with grossly negative cardiac workup. 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 Shows moderate to large pericardial effusion. Patient is dialysis patient and due for dialysis tomorrow. No episodes of hypotension. No signs of Becks triad. No evidence of tamponade. Will admit for cardiac evaluation, dialysis, and ORIF with Dr. Jhaveri. 05/31 09:30 Order name: Basic Metabolic Panel; Complete Time: 11:11 05/31 09:30 Order name: CBC with Diff; Complete Time: 11:04 05/31 09:30 Order name: NT PRO-BNP; Complete Time: 11:11 05/31 09:30 Order name: PT-INR; Complete Time: 11:04 05/31 09:30 Order name: Troponin HS; Complete Time: 11:11 05/31 17:54 Order name: Glucose, Ancillary Testing [facility] 05/31 19:17 Order name: Troponin High Sensitivity [facility] 05/31 21:19 Order name: Glucose, Ancillary Testing [facility] 05/31 22:29 Order name: Troponin High Sensitivity [facility] 06/01 03:43 Order name: CBC with Automated Diff [facility] 06/01 04:00 Order name: Comprehensive Metabolic Panel [facility] 06/01 04:00 Order name: Lipid Profile [facility] 06/01 04:00 Order name: T4 Free [facility]MT 06/01 04:00 Order name: Thyroid Stimulating Hormone [facility] 05/31 10:02 Order name: CT Chest For PE Angio; Complete Time: 11:20 05/31 12:10 Order name: Echo with Doppler [facility] 06/01 12:36 Order name: NM [facility] 05/31 09:30 Order name: EKG; Complete Time: 09:30 rn 05/31 09:30 Order name: Cardiac monitoring; Complete Time: 10:31 rn 05/31 09:30 Order name: EKG - Nurse/Tech; Complete Time: 10:20 rn 05/31 09:30 Order name: IV Saline Lock; Complete Time: 10:20 rn 05/31 09:30 Order name: Labs collected and sent; Complete Time: 10:31 rn 05/31 09:30 Order name: O2 Per Protocol; Complete Time: 09:49 rn 05/31 09:30 Order name: O2 Sat Monitoring; Complete Time: 09:49 rn Administered Medications: No medications were administered Disposition Summary: 05/31/23 11:29 Hospitalization Ordered Notes: Hospitalization Status: Observation rn Provider: Kishan Welsh rn Condition: Stable rn Problem: new rn Symptoms: have improved rn Bed/Room Type: Standard rn Location: Telemetry/MedSurg (observation)(06/01/23 11:16) bd Room Assignment: [facility](06/01/23 11:16) bd Diagnosis - Chest pain, unspecified rn - End stage renal disease rn - Pericardial effusion (noninflammatory) rn Forms: - Medication Reconciliation Form rn - SBAR form rn - Leadership Thank You Letter rn Signatures: Dispatcher [employer] EDMT Josie Solomon Irene RN Davis Blelamy MD MD rn Sims, Lauren RN RN ld1 Rachel Marques RN RN kb3 Corrections: (The following items were deleted from the chart) 10:26 09:30 Chest Single View+RAD.RAD.BRZ ordered. EDMT EDMS 13:42 11:29 Telemetry/MedSurg (observation) rn kb3 13:42 11:29 rn kb3 06/01 11:16 05/31 13:42 [facility] ER HOLD kb3 bd 06/01 11:16 05/31 13:42 ERHOLD- kb3 bd
--- NOTE | 2023-05-31 11:29 | ER ---
Nurse's Notes [facility] Name: Cezar Wood Age: 53 yrs Sex: Male : 1970 Arrival Date: 05/31/2023 Time: 09:18 Bed 20 Private MD: Diagnosis: Chest pain, unspecified;End stage renal disease;Pericardial effusion (noninflammatory) Presentation: 05/31 09:25 Chief complaint: report from SDS RN, pt c/o chest pain X 2 days, hx of pacemaker , was iw due for surgery this morning but has not been cleared by cardiology. Coronavirus screen: At this time, the client does not indicate any symptoms associated with coronavirus-19. Ebola Screen: Patient negative for fever greater than or equal to 101.5 degrees Fahrenheit, and additional compatible Ebola Virus Disease symptoms Patient denies exposure to infectious person. Patient denies travel to an Ebola-affected area in the 21 days before illness onset. No symptoms or risks identified at this time. Risk Assessment: Do you want to hurt yourself or someone else? Patient reports no desire to harm self or others. Onset of symptoms was May 29, 2023. 09:25 Method Of Arrival: Stretcher iw 09:25 Acuity: RAH 2 kb3 11:12 Initial Sepsis Screen: Does the patient meet any 2 criteria? No. Patient's initial ld1 sepsis screen is negative. Does the patient have a suspected source of infection? No. Patient's initial sepsis screen is negative. Triage Assessment: 11:12 General: Appears in no apparent distress. comfortable, Behavior is calm, cooperative, ld1 appropriate for age. Pain: Denies pain. EENT: No signs and/or symptoms were reported regarding the EENT system. Neuro: Level of Consciousness is awake, alert, obeys commands, Oriented to person, place, time, situation. Cardiovascular: Capillary refill < 3 seconds Patient's skin is warm and dry. Rhythm is sinus rhythm. Respiratory: Airway is patent Respiratory effort is even, unlabored. GI: Abdomen is non-distended, obese. Historical: - PMHx: 10:33 diabetes mellitus; DIALYSIS MWF; ESRD; Hypertensive disorder; iw - PSHx: 10:33 Left arm dialysis fistula; iw - Immunization history:: Adult Immunizations up to date. - Family history:: not pertinent. - Social history:: Smoking status: Patient denies any tobacco usage or history of. Patient/guardian denies using alcohol. - Hospitalizations: : No recent hospitalization is reported. Screenin:13 [facility] ED Fall Risk Assessment (Adult) History of falling in the last 3 months, ld1 including since admission No falls in past 3 months (0 pts). Abuse screen: Denies threats or abuse. Denies injuries from another. Nutritional screening: No deficits noted. Tuberculosis screening: No symptoms or risk factors identified. Assessment: 11:11 General: Appears in no apparent distress. comfortable, Behavior is calm, cooperative, ld1 appropriate for age. Pain: Denies pain. Pain does not radiate. Neuro: Level of Consciousness is awake, alert, obeys commands, Oriented to person, place, time, situation. Cardiovascular: Capillary refill < 3 seconds Patient's skin is warm and dry. Respiratory: Airway is patent Respiratory effort is even, unlabored. GI: Abdomen is round non-distended. : No signs and/or symptoms were reported regarding the genitourinary system. EENT: No signs and/or symptoms were reported regarding the EENT system. Derm: No signs and/or symptoms reported regarding the dermatologic system. Musculoskeletal: No signs and/or symptoms reported regarding the musculoskeletal system. 11:13 Pain: Pain began gradually. ld1 12:09 Reassessment: Hospitalist at bedside with patient. ld1 06/01 10:14 Reassessment: Patient and/or family updated on plan of care and expected duration. Pain tl4 level reassessed. Patient is alert, oriented x 3, equal unlabored respirations, skin warm/dry/pink. Pt returned from stress test. Pt states he continues to have left side chest pain. Pt to dialysis. Per skiagrapher, hold am medications. Pt denies any needs at this time. 10:25 Reassessment: Pt to dialysis via hospital bed. tl4 12:45 Reassessment: Report given to PASCALE Marie. Notified skiagrapher Lacie that pt will go tl4 directly to his room. Vital Signs: 05/31 11:11 BP 152 / 78; Pulse 67; Resp 18; Pulse Ox 96% on R/A; ld1 11:11 Temp 98; ld1 11:11 Weight 105.23 kg; Height 5 ft. 10 in. ; ld1 06/01 10:16 BP 146 / 78; Pulse 71; Resp 18; Temp 97.9(TE); Pulse Ox 96% on R/A; Pain 3/10; tl4 05/31 11:11 Body Mass Index 33.29 (105.23 kg, 177.8 cm) ld1 06/01 10:16 Pain Scale: Adult tl4 [place] Coma Score: 10:16 Eye Response: spontaneous(4). Motor Response: obeys commands(6). Verbal Response: tl4 oriented(5). Total: 15. ED Course: 05/31 09:21 Patient arrived in ED. bd 09:21 Davis Welsh MD is Attending Physician. rn 09:25 Arm band placed on. iw 09:57 Olga Chambers, RN is Primary Nurse. iw 10:25 Triage completed. iw 10:51 CT Chest For PE Angio In Process Unspecified. EDMS 11:11 Felisha Devries RN is Primary Nurse. ld1 11:13 Patient has correct armband on for positive identification. Placed in gown. Bed in low ld1 position. Call light in reach. Side rails up X2. ekg monitor tech on. Pulse ox on. NIBP on. Door closed. Noise minimized. Warm blanket given. 11:13 No provider procedures requiring assistance completed. Patient maintains SpO2 ld1 saturation greater than 95% on room air. 11:28 Kishan Welsh MD is Hospitalizing Provider. rn 14:54 Provided Education on: need for admit. ld1 14:54 Patient admitted, IV remains in place. ld1 20:08 Primary Nurse role handed off by Felisha Devries RN as6 06/01 00:22 Diego Ramos RN is Primary Nurse. tm6 12:37 Inserted saline lock: 20 gauge in right forearm, using aseptic technique. tl4 Administered Medications: No medications were administered Medication: 05/31 11:13 VIS not applicable for this client. ld1 Outcome: 11:29 Decision to Hospitalize by Provider. rn 14:54 Admitted to ER Hold. Please see [facility] for further documentation. ld1 14:54 Condition: stable 14:54 Instructed on the need for admit, 06/01 13:07 Patient left the ED. ll1 Signatures: Dispatcher [employer] EDMS Josie Solomon bd Olga Chambers, RN RN iw Davis Welsh MD MD rn Lewis, Lynsay, RN RN ll1 Felisha Devries, RN RN annabelle1 Ash Rose, RN RN as6 Rachel Marques RN RN kb3 Diego Ramos, RN RN tm6 Elton Lynn, RN RN tl4 Corrections: (The following items were deleted from the chart) 05/31 11:58 09:25 Acuity: RAH 3 griffin kb3
[2023-05-31] MEDS ORDERED: ONDANSETRON 4 MG/2 ML VIAL IV PRN (14:10)
[2023-05-31] MEDS ORDERED: MORPHINE 2 MG/ML SYR IV PRN (14:10)
[2023-05-31 14:13] VITALS: BMI 33.2
--- NOTE | 2023-05-31 14:59 | P.HP ---
Certification for Inpatient Patient admitted to: Inpatient With expected LOS: >2 Midnights Patient will require the following post-hospital care: None Practitioner: I am a practitioner with admitting privileges, knowledge of patient current condition, hospital course, and medical plan of care. Services: Services provided to patient in accordance with Admission requirements found in Title 42 Section 412.3 of the Code of Federal Regulations Patient History Date of Service: 05/31/23 Reason for admission: Chest pain History of Present Illness: 53-year-old male with history of ESRD on HD MWF, diet-controlled diabetes, hypertension presents the emergency department with chief complaint of chest pain. He broke his left wrist approximate 1 week ago after mechanical fall and was in same-day surgery to have his ORIF performed when he let the nurse know he was having chest pain the past 3 days, he was then referred to the emergency department for evaluation. In the ER his labs are significant for initial hesitancy troponin of 30.1 creatinine 6.37 GFR 55 glucose 148 BNP 42,888 hemoglobin 10.2 hematocrit 29.1 CTA of the chest was performed which was negative for pulmonary embolism but did show large pericardial effusion. Patient's pain is pleuritic in nature going on the last 3 days described as sharp with inspiration. His vital signs are stable no hypotension or tachycardia noted. Discussed case with cardiology recommends stat echocardiogram be performed. Patient will be admitted for further evaluation and management. Also of note patient did receive IV contrast, is a dialysis patient still does make urine, nephrology notified plan to receive dialysis in the next 24 hours. Allergies No Known Allergies Allergy (Verified 05/31/23 07:41) - Past Medical/Surgical History Has patient received pneumonia vaccine in the past: Yes -: ESRD on HD MWF -: Diabetes mellitus type 2diet controlled -: Hypertension -: Right BKA -: Left/fourth/fifth toe amputations -: Pacemaker placement Psychosocial/ Personal History: Lives at home with his significant other - Family History Family History: Reviewed- Non-Contributory - Social History Smoking Status: Never smoker Alcohol use: No CD- Drugs: No Caffeine use: Yes Place of Residence: Home Review of Systems 10-point ROS is otherwise unremarkable Respiratory: SOB with Excertion Cardiovascular: Chest Pain Physical Examination - Physical Exam General: Alert, In no apparent distress, Oriented x3 HEENT: Atraumatic, PERRLA Neck: Supple, 2+ carotid pulse no bruit Respiratory: Clear to auscultation bilaterally, Normal air movement Cardiovascular: Regular rate/rhythm, Normal S1 S2 Gastrointestinal: Normal bowel sounds Musculoskeletal: Other (Right BKA) Integumentary: No rashes Neurological: Normal speech, Normal strength at 5/5 x4 extr, Normal tone - Studies Laboratory Data (last 24 hrs) 05/31/23 05/31/23 05/31/23 10:28 10:28 10:28 WBC 10.40 Hgb 10.2 L Hct 29.1 L Plt Count 249 PT 12.5 INR 1.14 Sodium 138 D Potassium 4.2 BUN 55 H Creatinine 6.37 H Glucose 148 H Assessment and Plan - Plan Assessment: Chest pain, large pericardial effusion ESRD on HD MWF Left wrist fracture Diabetes mellitus type 5dhg-myutmta-rlbctdziq/diet-controlled Hypertension Plan: Chest pain, large pericardial effusion Trend troponins, monitor on telemetry Cardiology consulted-recommend stat echo which was ordered Patient without hypotension, tachycardia or signs of acute decompensation ESRD on HD MWF Received IV contrast for PE study Nephrology notified, plan for dialysis within 24 hours Still does make urine Lasix ordered Left wrist fracture Orthopedics consulted Diabetes mellitus type 5qfg-uxjusfw-nsuuebfbl/diet-controlled ACHS Accu-Chek, sliding scale insulin Reports last A1c less than 7 Hypertension Continue home medications DVT PPX: Subcu heparin Code status: Full Discharge Plan: Home Plan to discharge in: 48 Hours - Advance Directives Does patient have a Living Will: No Does patient have a Durable POA for Healthcare: No Critical Care: No Time Spent Managing Pts Care (In Minutes): 70
--- NOTE | 2023-05-31 15:46 | EKG ---
Test Date: 2023-05-31 Test Time: 09:11:02 Grinder Set Up Operator Thread: MARGI MEASUREMENT RESULTS: Intervals: Rate: 68 HI: 176 QRSD: 166 QT: 520 QTc: 552 [place]: P: 30 HI: 176 QRS: 34 T: 63 INTERPRETIVE STATEMENTS: Electronic ventricular pacemaker No previous ECG available for comparison Electronically Signed On 05-31-23 15:45:36 LOAN SERVICES PROFESSIONAL by Bonilla Montes
[2023-05-31] MEDS: INSULIN REGULAR (HUMAN) 100 UNIT/ML SQ SCH (16:30)
[2023-05-31] MEDS: FUROSEMIDE 40 MG TABLET PO SCH (17:00)
[2023-05-31] MEDS ORDERED: FUROSEMIDE 40 MG TABLET ONE (18:38)
--- NOTE | 2023-05-31 20:09 | CON ---
Date of Consultation: 05/31/2023 Reason For Consultation: Pericardial effusion on CT scan. History Of Present Illness: 53-year-old male with history of end-stage renal disease, on hemodialysi s Tuesday, Tuesday, Tuesday; hypertension; diabetes; status post hnyaj-htk-qkis amputation on the rig ht side; peripheral vascular disease, presented to the emergency room as he was having chest pain wit h deep inspiration in the past 3 days, and every time he takes deep breath it gets worse. Denies hav ing any exertional chest pain. No history of cardiac disease as per his report. At the present time , he is chest pain free. Past Medical History: As outlined above in the HPI. Medications: Refer reconciliation sheet for detailed list. Allergies: NO KNOWN DRUG ALLERGIES. Family History: No premature coronary artery disease or cancer. Social History: Does not smoke or drink. Does not use any drugs. Review of Systems: All systems reviewed, and they are negative except as mentioned in the HPI. Physical Examination: Vital Signs: Reviewed. Head and Neck: Pupils are equal, reactive to light. Intact eye movements. No JVD. No cervical lym phadenopathy. Neck supple. Thyroid is not enlarged. Lungs: Clear to auscultation bilaterally. No rhonchi, rales, or crackles. No accessory muscle use. Heart: Regular rate and rhythm. No extra sounds. Abdomen: Soft, nontender. Bowel sounds positive. No organomegaly. No masses or hernia. No rigidi ty or rebound. Extremities: He is an amputee below the knee on the right side. No edema, clubbing, cyanosis. Inta ct pulses. Skin: No rash noted. Neurologic: Alert, awake, oriented x3. No acute process appreciated. Lymph Nodes: No cervical or axillary lymphadenopathy. Investigations: NT proBNP is 42,000. BUN is 65, creatinine 6.37. Hemoglobin is 10. CTA angiogram of the chest showed large pericardial effusion. No PE. Assessment/recommendation: 1.Pericardial effusion by CT scan with positive pain with inspiration. Obtain echocardiogram to gurpreet ntify it and plan accordingly. 2.Chest pain and multiple risk factors. Baby aspirin 81 mg daily. Trend cardiac enzymes and obtain echo as above. Also recommend to obtain a Lexiscan nuclear stress test tomorrow morning to further evaluate his multiple risk factors. 3.Dyslipidemia. Recommend Lipitor 40 mg at bedtime. 4.End-stage renal disease, on hemodialysis. He has been given Lasix. If he is making urine, to be continued and he needs further dialysis. Likely his pericardial effusion is due to the end-stage laura al disease. SR/MODL Voice ID: [id number] Report ID: [id number]
[2023-05-31] MEDS ORDERED: HEPARIN 5000 UNIT/ML 1 ML VIAL ONE (20:59)
[2023-05-31] MEDS: HEPARIN 5000 UNIT/ML 1 ML VIAL SQ SCH (21:00)
--- NOTE | 2023-05-31 21:23 | P.CNS ---
Date of Consult: 05/31/23 Reason for Consult: ESRD Requesting Physician: Kishan Welsh Chief Complaint: Chest pain History of Present Illness: 53-year-old male with history of ESRD on HD MWF, diet-controlled diabetes, hypertension presents the emergency department with chief complaint of chest pain. He broke his left wrist approximate 1 week ago after mechanical fall and was in same-day surgery to have his ORIF performed when he let the nurse know he was having chest pain the past 3 days, he was then referred to the emergency department for evaluation. In the ER his labs are significant for initial hesitancy troponin of 30.1 creatinine 6.37 GFR 55 glucose 148 BNP 42,888 hemoglobin 10.2 hematocrit 29.1 CTA of the chest was performed which was negative for pulmonary embolism but did show large pericardial effusion. Patient's pain is pleuritic in nature going on the last 3 days described as sharp with inspiration. His vital signs are stable no hypotension or tachycardia noted. Discussed case with cardiology recommends stat echocardiogram be performed. Patient will be admitted for further evaluation and management. Also of note patient did receive IV contrast, is a dialysis patient still does make urine, nephrology notified plan to receive dialysis in the next 24 hours. [id number] 09:50 This 53 yrs old Male presents to ER via Unassigned with complaints of chest pain. rn 09:50 The patient or guardian reports chest pain that is located primarily in the anterior rn chest wall, left. Onset: 2 day(s) ago. The pain does not radiate. Associated signs and symptoms: Pertinent negatives: abdominal pain, diaphoresis, palpitations, shortness of breath, syncope, vomiting. The chest pain is described as sharp, stabbing. Duration: The patient or guardian reports multiple episodes, that are intermittent. Modifying factors: The symptoms are alleviated by nothing. the symptoms are aggravated by deep breath. Severity of pain: At its worst the pain was moderate in the emergency department the pain is unchanged. The patient has not experienced similar symptoms in the past. Patient reports was about to have surgery, ORIF, reported to nurse that has been having episodes of chest pain over the last 2 days. Reports left-sided sharp stabbing chest pain that is worse with a deep breath. Patient with history of DVT. Not on blood thinners at this time. No fever. No productive cough. Does not feel ill. Did fall 1 week ago, this is when he progressed, not sure if injured chest wall at the same time.. Allergies No Known Allergies Allergy (Verified 05/31/23 07:41) Home medications list reviewed: Yes - Past Medical/Surgical History Diabetic: Yes -: ESRD on HD MWF (Dr. Ramírez/ Dr. Yates) -: HTN -: Systolic CHF -: DM II with Polyneuropathy -: Chronic left foot ulcer -: Right BKA -: Left/fourth/fifth toe amputations -: Pacemaker placement Psychosocial/ Personal History: Lives at home with his significant other - Social History Alcohol use: No CD- Drugs: No Caffeine use: Yes Place of Residence: Home Review of Systems 10-point ROS is otherwise unremarkable General: Weakness, Malaise Respiratory: SOB with Excertion Cardiovascular: Chest Pain Physical Examination Temp Pulse Resp BP Pulse Ox 97.1 F 71 19 145/75 H 98 05/31/23 20:00 05/31/23 20:00 05/31/23 20:00 05/31/23 20:00 05/31/23 20:00 General: In no apparent distress, Oriented x3, Cooperative HEENT: Atraumatic Neck: Supple Respiratory: Diminished Cardiovascular: Regular rate/rhythm, Edema Gastrointestinal: Soft and benign, Non-distended Musculoskeletal: No clubbing, No contractures Integumentary: No rashes, No cyanosis Neurological: Normal speech Laboratory Data (last 24 hrs) 05/31/23 05/31/23 05/31/23 10:28 10:28 10:28 WBC 10.40 Hgb 10.2 L Hct 29.1 L Plt Count 249 PT 12.5 INR 1.14 Sodium 138 D Potassium 4.2 BUN 55 H Creatinine 6.37 H Glucose 148 H Imagings Data: [id number] EXAM DESCRIPTION: CT - Chest For Pe Angio - 05/31/2023 10:49 am CLINICAL HISTORY: Chest pain COMPARISON: None. TECHNIQUE: Dynamically enhanced axial 3 mm thick images of the chest were obtained during administration of 100 mL Isovue 370 IV contrast. Coronal and oblique reconstruction images were generated and reviewed. Exam utilizes a protocol for optimal evaluation of pulmonary arterial tree. Maximum intensity projections 3D imaging was utilized All CT scans are performed using dose optimization technique as appropriate and may include automated exposure control or mA/KV adjustment according to patient size. FINDINGS: A pulmonary embolus is not seen. A thoracic aortic aneurysm is not noted. A pleural effusion is not seen. Large pericardial effusion A lung consolidation is not present. IMPRESSION: Negative for a pulmonary embolism. Large pericardial effusion Conclusions/Impression: ESRD on HD MWF -HD TIW HTN with CKD/ CHF -Labetolol prn Systolic CHF, A/C Pericardial Effusion -HD with UF -Cardiology consulted -Echocardiogram pending DM II with CKD, Polyneuropathy & Foot ulcer -RISS Anemia in CKD -Retacrit qHD CKD MBD -Start Renvela and Calcitriol Hospitalist and ER notes reviewed Thank you kindly for the consultation
[2023-05-31] MEDS ORDERED: LABETALOL 20 MG/4ML SYRINGE IV PRN (21:30)
[2023-05-31] MEDS ORDERED: NA CHLORIDE 0.9% 1,000 ML IV PRN (21:35)
[2023-05-31] MEDS ORDERED: MANNITOL 25% 12.5 GM/50 ML VIAL IV PRN (21:35)
[2023-05-31] MEDS ORDERED: EPOETIN ALFA 10,000 UNIT/ML VIAL IV SCH (21:45)
[2023-05-31] MEDS ORDERED: ALBUMIN HUMAN 25% 50 ML IV SCH (22:00)
[2023-06-01 03:42] LABS: Absolute Lymphocytes (CBC) 1.3 K/uL (0.7-4.9); Lymphocytes % 15.8 % (15.3-44.8); MCV 99.2 fL (80-100); Platelets 233 thou/uL (152-406); RBC Red Blood Cell Count 2.62 M/uL (4.33-5.43)
[2023-06-01 04:00] LABS: Bilirubin Total 0.5 mg/dL (0.2-1.0); Potassium 4.4 mEq/L (3.5-5.1); Protein, Total 7.3 g/dL (6.4-8.2); Thyroid Stimulating Hormone 1.14 uIU/mL (0.358-3.740)
--- NOTE | 2023-06-01 07:06 | ECHO ---
HEIGHT: 5 ft 10 in WEIGHT: 231 lb 7.766 oz DATE OF STUDY: 05/31/[address]: Raza Rod NP 2-DIMENSIONAL: YES M.MODE: YES DOPPLER: YES COLOR FLOW: YES TDS: PORTABLE: YES DEFINITY: BUBBLE STUDY: DIAGNOSIS: LARGE PERICARDIAL EFFUSION CARDIAC HISTORY: CATHERIZATION: SURGERY: PROSTHETIC VALVE: PACEMAKER: MEASUREMENTS (cm) DIASTOLIC (NORMALS) SYSTOLIC (NORMALS) IVSd 1.3 (0.6-1.2) LA Diam 4.3 (1.9-4.0) LVEF 50% LVIDd 5.7 (3.5-5.7) LVIDs 4.4 (2.0-3.5) %FS 23% LVPWd 1.2 (0.6-1.2) Ao Diam 3.2 (2.0-3.7) 2 DIMENSIONAL ASSESSMENT: RIGHT ATRIUM: NORMAL LEFT ATRIUM: ENLARGED RIGHT VENTRICLE: NORMAL LEFT VENTRICLE: LEFT VENTRICULAR HYPERTROPHY TRICUSPID VALVE: MILD TRICUSPID REGURGITATION MITRAL VALVE: MILD MITRAL REGURGITATION PULMONIC VALVE: MILD PULMONIC INSUFFICIENCY AORTIC VALVE: NORMAL PERICARDIAL EFFUSION: POSTERIOR EFFUSION AORTIC ROOT: NORMAL LEFT VENTRICULAR WALL MOTION: MILD GLOBAL HYPOKINESIS DOPPLER/COLOR FLOW: SEE BELOW COMMENTS: 1. MILDLY DEPRESSED LEFT VENTRICULAR EJECTION FRACTION 45-50% 2. MILD GLOBAL HYPOKINESIS 3. MILD CONCENTRIC LEFT VENTRICULAR HYPERTROPHY 4. MODERATE POSTERIOR PERICARDIAL EFFUSION 5. MODERATE DIASTOLIC DYSFUCNTION 6. LEFT ATRIAL ENLARGEMENT 7. MILD MITRAL REGURGITATION, TRICUSPID REGURGITATION TECHNOLOGIST: DAVID BORGES
[2023-06-01] MEDS: SEVELAMER CARBONATE 800 MG TABLET PO SCH (08:00)
[2023-06-01] MEDS: COENZYME Q10- 200 MG CAP PO SCH (09:00)
[2023-06-01] MEDS: MULTIVITAMINS,THERAPEUT 1 TAB PO SCH (09:00)
[2023-06-01] MEDS: ASPIRIN EC 81 MG TAB PO SCH (09:00)
[2023-06-01] MEDS: DOCUSATE NA 100 MG CAP PO SCH (09:00)
[2023-06-01] MEDS: CALCITROL 0.25 MCG CAP PO SCH (09:00)
[2023-06-01] MEDS ORDERED: REGADENOSON 0.4 MG/5 ML SYR IV ONE (09:11)
[2023-06-01] MEDS: EPOETIN ALFA 10,000 UNIT/ML VIAL IV SCH (11:30)
--- NOTE | 2023-06-01 12:36 | RAD REPORT ---
EXAM DESCRIPTION: NM - Rest Stress Cardiac Imaging - 06/01/2023 9:55 am CLINICAL HISTORY: CP Chest pain. COMPARISON: Rest Stress Cardiac Imaging dated 08/24/2022 TECHNIQUE: The patient was administered approximately 10mCi of Tc 99m Sestamibi prior to resting SPE CT imaging of the heart. The patient was then administered approximately 30 mCi of Tc 99m Sestamibi f ollowing exercise or pharmacologic stress. Multiplanar SPECT images were reviewed. FINDINGS: No stress induced ischemic defect is seen to suggest stress induced ischemia. No fixed def ect is seen to suggest hibernating myocardium or scarred myocardium. The end diastolic volume is 202 ml, the end systolic volume is 120 ml, and the ejection fraction is 4 1 %. IMPRESSION: No stress induced ischemia.
[2023-06-01 13:07] LABS: Hepatitis B surface AG Interp. Nonreactive (Nonreactive)
--- NOTE | 2023-06-01 14:01 | P.PN ---
Date of Service: 06/01/23 Subjective: Still with some persistent chest discomfort No acute events overnight ROS: 10 point ROS as noted above, otherwise negative Physical exam GEN: Alert, oriented, NAD HEENT: Normal conjunctiva, sclera anicteric CV: Regular rate and rhythm, no edema Pulm: Nonlabored respirations on room air ABD: Soft, nontender, nondistended MSK: No joint tenderness, right BKA Integumentary: No rashes Neuro: Normal speech, normal affect Vitals reviewed Problem List Assessment: Chest pain, large pericardial effusion ESRD on HD MWF Left wrist fracture Diabetes mellitus type 3pie-cssxtuq-hkpgidjxl/diet-controlled Hypertension Plan: Chest pain, large pericardial effusion Trend troponins, monitor on telemetry Echocardiogram performed which revealed Echocardiogram shows mildly depressed left ventricular ejection fraction 45 to 50% Mild global hypokinesis Moderate posterior pericardial effusion Moderate diastolic dysfunction Left atrial enlargement Mild mitral regurgitation, tricuspid regurgitation Stress test performed with no stress-induced ischemia ESRD on HD MWF Dialysis today, nephrology following Left wrist fracture Orthopedics consulted Diabetes mellitus type 5phr-awmdulz-koutzbswh/diet-controlled ACHS Accu-Chek, sliding scale insulin Reports last A1c less than 7 Hypertension Continue home medications DVT PPX: Subcu heparin Code status: Full Discharge Plan: Home Plan to discharge in: 48 Hours Time Spent Managing Pts Care (In Minutes): 35
--- NOTE | 2023-06-01 14:18 | TREADPHA ---
DX: CHEST PAIN Date of Study: 06/01/2023 Ht: 5' 10 " Wt: 231 lb 7.766 oz Consulting Physician: VENKATESH MEDICATIONS: ALBUMIN, ASPIRIN, ROCALTROL, COENZYME, COLACE, PROCRIT, LASIX, HEPARIN, NOVOLIN-R, TRANDATE, MANNITOL, MORPHINE, ZOFRAN, RENVELA HISTORY: 53 YEAR OLD MALE DENIES ALLERGIES. HISTORY OF PACEMAKER, HYPERTENSION, CHRONIC KIDNEY DISEASE STAGE FOUR ON DIALYSIS, DIABETES MELLITUS PHYSICIAL EXAMINATION: RESTING B.P.: 119/82 RESTING H.R.: 72 RESTING EKG: VENTRICULAR PACED PROTOCOL: PHARMACOLOGIC EXERCISE TIME: 3:30 B.P. AT [place] STRESS: 97/48 IMPRESSION: LEXISCAN INJECTED. CARDIOLITE INJECTED - SEE NUCLEAR MEDICINE REPORT. PACED RHYTHM. PACED RHYTHM. PATIENT DENIES CHEST PAIN. NO SUPRAVENTRICULAR TACHYCARDIA, VENTRICULAR TACHYCARDIA, PREMATURE ATRIAL COMPLEXES, PREMATURE VENTRICULAR COMPLEXES NOTED.
[2023-06-01] MEDS: FUROSEMIDE 40 MG TABLET PO SCH (17:07)
--- NOTE | 2023-06-01 17:27 | P.PN ---
Subjective Date of Service: 06/01/23 Chief Complaint: Chest pain Subjective: No new changes Review of Systems 10-point ROS is otherwise unremarkable Physical Examination - Vital Signs Temperature: 97.4 F Blood Pressure: 163/73 Pulse: 72 Respirations: 16 Pulse Ox (%): 98 - Physical Exam General: Alert, Oriented x3 HEENT: Atraumatic Neck: Supple, JVD not distended Respiratory: Clear to auscultation bilaterally Cardiovascular: No edema, Normal S1 S2 Gastrointestinal: Normal bowel sounds Assessment And Plan - Current Problems (Diagnosis) (1) Chest pain Current Visit: Yes Status: Acute Plan: patient had a normal stress test with no sign of ischemia patient is cleared to proceed with surgery as intermediate cardiac risk, no further cardiac work up needed. (2) Pericardial effusion Current Visit: Yes Status: Acute Plan: loculated posterior effusion with no sign of tamponade, no need for pericardiocentesis, advise to monitor and more aggressive diuresis.
--- NOTE | 2023-06-01 21:58 | P.PN ---
Date of Service: 06/01/23 Vital Signs Temp Pulse Resp BP Pulse Ox 98.3 F 78 16 158/75 H 96 06/01/23 20:00 06/01/23 20:00 06/01/23 20:00 06/01/23 20:00 06/01/23 20:00 Medications Aspirin (Aspirin Ec 81 Mg Tab) 81 mg PO DAILY [facility] Last Admin: 06/01/23 09:00 Dose: Not Given Calcitriol (Calcitrol 0.25 Mcg Cap) 0.5 mcg PO DAILY [facility] Last Admin: 06/01/23 09:00 Dose: Not Given Coenzyme Q10 (Coenzyme Q10- 200 Mg Cap) 200 mg PO DAILY [facility] Last Admin: 06/01/23 09:00 Dose: Not Given Docusate Sodium (Docusate Na 100 Mg Cap) 100 mg PO BID [facility] Last Admin: 06/01/23 20:18 Dose: 100 mg Epoetin Mendez (Epoetin Mendez 10,000 Unit/Ml Vial) 10,000 unit IV EVERY HD [facility] Last Admin: 06/01/23 11:30 Dose: 10,000 unit Furosemide (Furosemide 40 Mg Tablet) 80 mg PO DAILY@1700 [facility] Last Admin: 06/01/23 17:07 Dose: 80 mg Heparin Sodium (Porcine) (Heparin 5000 Unit/Ml 1 Ml Vial) 5,000 unit SQ Q12HR [facility] Last Admin: 06/01/23 19:42 Dose: Not Given Heparin Sodium (Porcine) (Heparin 1,000 Unit/Ml Vial) 6,000 unit IV EVERY HD PRN PRN Reason: AFTER EACH Last Admin: 06/01/23 14:50 Dose: 6,000 unit Albumin Human (Albumin 25%) 50 mls @ 100 mls/hr IV EVERY HD [facility] Insulin Human Regular (Insulin Regular (Human) 100 Unit/Ml) 0 unit SQ ACHS [facility]; Protocol Last Admin: 06/01/23 20:18 Dose: Not Given Labetalol HCl (Labetalol 20 Mg/4ml Syringe) 10 mg IV Q4H PRN PRN Reason: Titrate to SBP (MUST DEFINE) Mannitol (Mannitol 25% 12.5 Gm/50 Ml Vial) 12.5 gm IV EVERY HD PRN PRN Reason: Titrate to SBP (MUST DEFINE) Morphine Sulfate (Morphine 2 Mg/Ml Syr) 2 mg IV Q6H PRN PRN Reason: Pain scale 8-10 (Severe) Ondansetron HCl (Ondansetron 4 Mg/2 Ml Vial) 4 mg IV Q6HP PRN PRN Reason: NAUSEA / VOMITING Sevelamer Carbonate (Sevelamer Carbonate 800 Mg Tablet) 1,600 mg PO TIDWM [facility] Last Admin: 06/01/23 17:08 Dose: 1,600 mg Vitamin B Complex/Vit C/Folic Acid (Multivitamins,Therapeut 1 Tab) 1 tab PO DAILY [facility] Last Admin: 06/01/23 09:00 Dose: Not Given Assessment/ Plan: Nephrology No dyspnea No chest pain No acute events overnight Seen and examined at stress test Vitals, medications, blood work and imaging reviewed in the chart General: In no apparent distress, Oriented x3, Cooperative HEENT: Atraumatic Neck: Supple Respiratory: Normal resp effort Cardiovascular: Regular rate/rhythm, Edema Gastrointestinal: Soft and benign, Non-distended Musculoskeletal: No clubbing, No contractures Integumentary: No rashes, No cyanosis Neurological: Normal speech Laboratory Data (last 24 hrs) 05/31/23 05/31/23 05/31/23 10:28 10:28 10:28 WBC 10.40 Hgb 10.2 L Hct 29.1 L Plt Count 249 PT 12.5 INR 1.14 Sodium 138 D Potassium 4.2 BUN 55 H Creatinine 6.37 H Glucose 148 H Imagings Data: [id number] EXAM DESCRIPTION: CT - Chest For Pe Angio - 05/31/2023 10:49 am CLINICAL HISTORY: Chest pain COMPARISON: None. TECHNIQUE: Dynamically enhanced axial 3 mm thick images of the chest were obtained during administration of 100 mL Isovue 370 IV contrast. Coronal and oblique reconstruction images were generated and reviewed. Exam utilizes a protocol for optimal evaluation of pulmonary arterial tree. Maximum intensity projections 3D imaging was utilized All CT scans are performed using dose optimization technique as appropriate and may include automated exposure control or mA/KV adjustment according to patient size. FINDINGS: A pulmonary embolus is not seen. A thoracic aortic aneurysm is not noted. A pleural effusion is not seen. Large pericardial effusion A lung consolidation is not present. IMPRESSION: Negative for a pulmonary embolism. Large pericardial effusion LEFT VENTRICULAR WALL MOTION: MILD GLOBAL HYPOKINESIS DOPPLER/COLOR FLOW: SEE BELOW COMMENTS: 1. MILDLY DEPRESSED LEFT VENTRICULAR EJECTION FRACTION 45-50% 2. MILD GLOBAL HYPOKINESIS 3. MILD CONCENTRIC LEFT VENTRICULAR HYPERTROPHY 4. MODERATE POSTERIOR PERICARDIAL EFFUSION 5. MODERATE DIASTOLIC DYSFUCNTION 6. LEFT ATRIAL ENLARGEMENT 7. MILD MITRAL REGURGITATION, TRICUSPID REGURGITATION Conclusions/Impression: ESRD on HD MWF -HD TIW HTN with CKD/ CHF -Labetolol prn Systolic Diastolic CHF, A/C Pericardial Effusion -HD with UF -Cardiology following -Echocardiogram reviewed DM II with CKD, Polyneuropathy & Foot ulcer -RISS Anemia in CKD -Retacrit qHD CKD MBD -Continue Renvela and Calcitriol Hospitalist and cardiology notes reviewed Case reviewed with hospitalist team
[2023-06-02 05:58] LABS: Absolute Lymphocytes (CBC) 1.3 K/uL (0.7-4.9); Hematocrit 28.7 % (39.6-49.0); Lymphocytes % 16.5 % (15.3-44.8); MCV 100.1 fL (80-100); MPV 7.8 fL (7.6-11.3); Platelets 258 thou/uL (152-406); RBC Red Blood Cell Count 2.86 M/uL (4.33-5.43)
[2023-06-02 06:20] LABS: Albumin 3.1 g/dL (3.4-5.0); Bilirubin Total 0.4 mg/dL (0.2-1.0); Potassium 4.4 mEq/L (3.5-5.1); Protein, Total 7.8 g/dL (6.4-8.2)
--- NOTE | 2023-06-02 12:02 | P.BOP ---
Preoperative diagnosis: left 2 part intraarticular distal radius fracture Postoperative diagnosis: same Primary procedure: ORIF 2 part intraarticular distal radius fx Estimated blood loss: <10 ccs Complications: None Transferred to: Recovery Room Condition: Good
--- NOTE | 2023-06-02 12:03 | RAD REPORT ---
EXAM DESCRIPTION: RAD - Fluoroscopy <1 Hour - 06/02/2023 11:58 am CLINICAL HISTORY: ORIF WRIST COMPARISON: None available. FINDINGS: Three Images were sent to PACS, documenting fluoroscopy use during open reduction and inte rnal fixation of the wrist. No radiologist was available for the procedure, nor will any image interp retation he provided. Please refer to the procedural report for additional details. Fluoroscopy time: 1.2 Minutes. IMPRESSION: Documentation of fluoroscopy utilization as above.
--- NOTE | 2023-06-02 12:32 | OP ---
Date of Procedure: 06/02/2023 Surgeon: Kodi Jhaveri MD Preoperative Diagnosis: Left intraarticular 2 part distal radius fracture. Postoperative Diagnosis: Left intraarticular 2 part distal radius fracture. Procedures: Open reduction and internal fixation of left distal radius fracture, 2-part intraarticul ar using the Acumed 2 volar radius plating set. Estimated Blood Loss: Less than 10 cc. Complications: There were no complications. Pathology: No pathology specimens sent. Indications For Operation: Mr. Wood is a 53-year-old gentleman who unfortunately suffers from signi ficant medical problems. He does have a history of a below-knee amputation on one side and has had a previous right distal radius fracture, which healed, slightly shortened, and fell onto his left side injuring his left distal radius. He was seen and examined in my office where it demonstrated a loss of radial inclination, loss of volar tilt, and shortening. Risks, benefits, and alternatives of thi s were discussed with the patient with regard to treating and closed methods or with open reduction a nd internal fixation or other fixation. He says he understands things as presented and wanted to hav e open reduction and internal fixation as he had treated his right side closed and felt he needed his left side to be functioning as well as possible because of his other medical issues. He was set up to come to the operating room 2 days ago, but said he started experiencing chest pains. He was there fore sent to the emergency department, was admitted to the hospital where he has been cleared by Card iology, does have a pericardial effusion, but checking yesterday, Cardiology and Hospitalist say he i s cleared for operative intervention. Risks, benefits, and alternatives are discussed with him, both at the initial time as well as prior to surgery. He states he understands things as presented and w ishes to proceed. It should be noted he does have dialysis access in his left upper extremity in the arm and this was protected. Description Of Procedure: Patient was taken to the operating room, placed in supine position. He mast d a block placed by Anesthesia. There was no tourniquet placed on his arm and his left upper extremi ty was then otherwise prepped in the normal sterile all the way for this procedure. Following this, a standard volar approach of Duc was then taken down carefully through skin and soft tissues. Meti culous hemostasis being maintained using the Bovie and bipolar electrocautery. This leads down to th e tendon of the flexor carpi radialis which was then retracted radialward to protect the radial arter y. The underlying sheath was then exploited. A finger was used to sweep the flexor pollicis longus tendon and muscle belly ulnarward to protect the median nerve. This leads down to the pronator quadr atus. The pronator quadratus was then divided at its midsubstance and gently removed from the volar surface of the radius. C-arm was brought in to ensure we could obtain a good reduction and the Acume d 2 volar radius plating set was then placed in near standard fashion with a slight difference being that the tail is pointed a little more radialward to establish a little more radial inclination. How ever, all screws had good purchase and the reduction appears to be good. Following this, it was gent ly irrigated and the skin was closed using interrupted nylon sutures. The patient was then placed in a well-padded sterile dressing as well as a volar wrist splint and taken to recovery room in good co ndition. There were no complications. There was no tourniquet used. /GINA Voice ID: [id number] Report ID: [id number]
--- NOTE | 2023-06-02 14:14 | P.DS ---
Admission Date: 05/31/23 Discharge Date: 06/02/23 Disposition: ROUTINE DISCHARGE Discharge Condition: GOOD Reason for Admission: Chest pain Consultations: OrthopedicsDrTaylor Jhaveri CardiologyDr. Bijal NephrologyDr. Ramírez Procedures: ORIF left wrist Brief History of Present Illness: 53-year-old male with history of ESRD on HD MWF, diet-controlled diabetes, hypertension presents the emergency department with chief complaint of chest pain. He broke his left wrist approximate 1 week ago after mechanical fall and was in same-day surgery to have his ORIF performed when he let the nurse know he was having chest pain the past 3 days, he was then referred to the emergency department for evaluation. In the ER his labs are significant for initial hesitancy troponin of 30.1 creatinine 6.37 GFR 55 glucose 148 BNP 42,888 hemoglobin 10.2 hematocrit 29.1 CTA of the chest was performed which was negative for pulmonary embolism but did show large pericardial effusion. Patient's pain is pleuritic in nature going on the last 3 days described as sharp with inspiration. His vital signs are stable no hypotension or tachycardia noted. Discussed case with cardiology recommends stat echocardiogram be performed. Patient will be admitted for further evaluation and management. Also of note patient did receive IV contrast, is a dialysis patient still does make urine, nephrology notified plan to receive dialysis in the next 24 hours. Hospital Course: Assessment: Chest pain, moderate posterior pericardial effusion ESRD on HD MWF Left wrist fracture S/P ORIF Diabetes mellitus type [id number]-lihazsfcs/diet-controlled Hypertension Patient was admitted to the hospital for chest pain, he was seen by cardiology and had an echocardiogram as well as stress test. Echocardiogram did show moderate posterior pericardial effusion, stress test showed no stress-induced ischemia. Cardiology recommended further evaluation as an outpatient. CTA was performed to rule out pulmonary embolism which was negative. Patient was dialyzed on 06/01 and underwent ORIF of his left wrist fracture on . He is stable for discharge at this time to follow-up with his primary care doctor, nephrology and orthopedics on an outpatient basis. Please follow-up with Dr. Jhaveri with orthopedics in 2 weeks Pain meds sent electronically by orthopedics Please follow-up with your primary care doctor in 1 to 2 weeks Continue dialysis as scheduled as well as outpatient nephrology follow-up Please follow-up with cardiology-Dr. Montes outpatient 1 to 2 weeks Vital Signs/Physical Exam: Temp Pulse Resp BP Pulse Ox 97.2 F 64 18 124/64 93 06/02/23 12:43 06/02/23 12:43 06/02/23 12:43 06/02/23 12:43 06/02/23 08:00 General: Alert, In no apparent distress, Oriented x3 HEENT: Atraumatic, PERRLA Neck: Supple, JVD not distended Respiratory: Clear to auscultation bilaterally, Normal air movement Cardiovascular: Regular rate/rhythm, Normal S1 S2 Gastrointestinal: Normal bowel sounds, No tenderness Musculoskeletal: Other (Right BKA present, left wrist in splint in place) Integumentary: No rashes Neurological: Normal speech, Normal tone, Normal affect Laboratory Data at Discharge: WBC 8.00 thou/uL (4.3-10.9) 06/02/23 05:05 Hgb 10.0 g/dL (13.6-17.9) L D 06/02/23 05:05 Hct 28.7 % (39.6-49.0) L 06/02/23 05:05 Plt Count 258 thou/uL (152-406) 06/02/23 05:05 PT 12.5 SECONDS (9.5-12.5) 05/31/23 10:28 INR 1.14 05/31/23 10:28 Sodium 138 mEq/L (136-145) 06/02/23 05:05 Potassium 4.4 mEq/L (3.5-5.1) 06/02/23 05:05 BUN 47 mg/dL (7-18) H 06/02/23 05:05 Creatinine 6.13 mg/dL (0.70-1.30) H 06/02/23 05:05 Glucose 176 mg/dL (74-106) H 06/02/23 05:05 Total Bilirubin 0.4 mg/dL (0.2-1.0) 06/02/23 05:05 AST 21 U/L (15-37) 06/02/23 05:05 ALT 28 U/L (16-61) 06/02/23 05:05 Alkaline Phosphatase 90 U/L (45-117) 06/02/23 05:05 Triglycerides 58 mg/dL (<150) 06/01/23 03:12 Cholesterol 110 mg/dL (<200) 06/01/23 03:12 HDL Cholesterol 31 mg/dL (40-60) L 06/01/23 03:12 Cholesterol/HDL Ratio 3.55 06/01/23 03:12 Home Medications: Atenolol [Tenormin] 50 mg PO BEDTIME 06/02/23 Folic Acid/Vit B Complex and C [Renal-Jaden Tablet] 0.8 mg PO DAILY 06/02/23 Furosemide [Lasix*] 40 mg PO BIDL 06/02/23 Olmesartan Medoxomil [Benicar] 40 mg PO BEDTIME 06/02/23 Physician Discharge Instructions: Patient was admitted to the hospital for chest pain, he was seen by cardiology and had an echocardiogram as well as stress test. Echocardiogram did show moderate posterior pericardial effusion, stress test showed no stress-induced ischemia. Cardiology recommended further evaluation as an outpatient. CTA was performed to rule out pulmonary embolism which was negative. Patient was dialyzed on 06/01 and underwent ORIF of his left wrist fracture on . He is stable for discharge at this time to follow-up with his primary care doctor, nephrology and orthopedics on an outpatient basis. Please follow-up with Dr. Jhaveri with orthopedics in 2 weeks Pain meds sent electronically by orthopedics Please follow-up with your primary care doctor in 1 to 2 weeks Continue dialysis as scheduled as well as outpatient nephrology follow-up Please follow-up with cardiology-Dr. Montes outpatient 1 to 2 weeks Diet: Renal Activity: Fall precautions Followup: Leland Ramírez DO [Primary Care Provider] - 1-2 Weeks Kodi Jhaveri MD [ACTIVE - CAN ADMIT] - 1-2 Weeks Bonilla Montes MD [ACTIVE - CAN ADMIT] - 1-2 Weeks Time spent managing pt's care (in minutes): 35
[2023-06-02 16:55] VITALS: TEMP 97
[2023-06-02 17:34] VITALS: BP 162/80; O2SAT 100
--- NOTE | 2023-06-02 22:02 | P.PN ---
Date of Service: 06/02/23 Vital Signs Temp Pulse Resp BP Pulse Ox 97.0 F 75 16 162/80 H 97 06/02/23 16:00 06/02/23 17:21 06/02/23 16:00 06/02/23 17:21 06/02/23 16:00 Assessment/ Plan: Nephrology No dyspnea No chest pain No acute events overnight Vitals, medications, blood work and imaging reviewed in the chart General: In no apparent distress, Oriented x3, Cooperative HEENT: Atraumatic Neck: Supple Respiratory: Normal resp effort Cardiovascular: Regular rate/rhythm, Edema Gastrointestinal: Soft and benign, Non-distended Musculoskeletal: No clubbing, No contractures Integumentary: No rashes, No cyanosis Neurological: Normal speech Laboratory Data (last 24 hrs) 05/31/23 05/31/23 05/31/23 10:28 10:28 10:28 WBC 10.40 Hgb 10.2 L Hct 29.1 L Plt Count 249 PT 12.5 INR 1.14 Sodium 138 D Potassium 4.2 BUN 55 H Creatinine 6.37 H Glucose 148 H Imagings Data: [id number] EXAM DESCRIPTION: CT - Chest For Pe Angio - 05/31/2023 10:49 am CLINICAL HISTORY: Chest pain COMPARISON: None. TECHNIQUE: Dynamically enhanced axial 3 mm thick images of the chest were obtained during administration of 100 mL Isovue 370 IV contrast. Coronal and oblique reconstruction images were generated and reviewed. Exam utilizes a protocol for optimal evaluation of pulmonary arterial tree. Maximum intensity projections 3D imaging was utilized All CT scans are performed using dose optimization technique as appropriate and may include automated exposure control or mA/KV adjustment according to patient size. FINDINGS: A pulmonary embolus is not seen. A thoracic aortic aneurysm is not noted. A pleural effusion is not seen. Large pericardial effusion A lung consolidation is not present. IMPRESSION: Negative for a pulmonary embolism. Large pericardial effusion LEFT VENTRICULAR WALL MOTION: MILD GLOBAL HYPOKINESIS DOPPLER/COLOR FLOW: SEE BELOW COMMENTS: 1. MILDLY DEPRESSED LEFT VENTRICULAR EJECTION FRACTION 45-50% 2. MILD GLOBAL HYPOKINESIS 3. MILD CONCENTRIC LEFT VENTRICULAR HYPERTROPHY 4. MODERATE POSTERIOR PERICARDIAL EFFUSION 5. MODERATE DIASTOLIC DYSFUCNTION 6. LEFT ATRIAL ENLARGEMENT 7. MILD MITRAL REGURGITATION, TRICUSPID REGURGITATION Conclusions/Impression: ESRD on HD MWF -HD TIW HTN with CKD/ CHF -Labetolol prn Systolic Diastolic CHF, A/C Pericardial Effusion -HD with UF -Cardiology following -Echocardiogram reviewed DM II with CKD, Polyneuropathy & Foot ulcer -RISS Anemia in CKD -Retacrit qHD CKD MBD -Continue Renvela and Calcitriol Hospitalist and cardiology notes reviewed Case reviewed with hospitalist team
== END 2023-06-02 18:50 | disposition home or self-care (01) ==
LOC: ER 09:18 → ERHOLD 12:24 → 4TH 06-01 13:05
PROVIDERS: ADMIT Hospitalist; ATTEND Hospitalist
PROC: 0PSJ04Z Reposition Left Radius with Internal Fixation Device, Open Approach (ICD-10-PCS; principal; 2023-06-02 11:00)
DX: S52.502A Unspecified fracture of the lower end of left radius, initial encounter for closed fracture (principal); R07.9 Chest pain, unspecified; E11.22 Type 2 diabetes mellitus with diabetic chronic kidney disease; I12.0 Hypertensive chronic kidney disease with stage 5 chronic kidney disease or end stage renal disease; N18.6 End stage renal disease; I31.39 Other pericardial effusion (noninflammatory); I50.23 Acute on chronic systolic (congestive) heart failure; E11.621 Type 2 diabetes mellitus with foot ulcer; L97.529 Non-pressure chronic ulcer of other part of left foot with unspecified severity; Z99.2 Dependence on renal dialysis
CPT/HCPCS: 36415; 71275; 76000; 78452; 80048; 80053; 80061; 82947; 83880; 84439; 84443; 84484; 85025; 85610; 86706; 87340; 90935; 93005; 93017; 93306; 99285; A9500; C1713; C1889; G0378; J1644; J1815; J2785; Q9967

== ENCOUNTER → 2023-05-31 | Day surgery (SDC) | payer OTHER ==
[~2023-05-31] MED LIST: CEFAZOLIN SODIUM 1 GM/VIAL ONE
[2023-05-31 08:10] LABS: Absolute Lymphocytes (CBC) 1.2 K/uL (0.7-4.9); Hematocrit 28.3 % (39.6-49.0); Lymphocytes % 11.2 % (15.3-44.8); MCV 99.9 fL (80-100); MPV 7.5 fL (7.6-11.3); Platelets 289 thou/uL (152-406); RBC Red Blood Cell Count 2.83 M/uL (4.33-5.43)
[2023-05-31 08:26] LABS: Potassium 4.4 mEq/L (3.5-5.1)
[2023-05-31] MEDS: NA CHLORIDE 0.9% 1,000 ML ONE (08:30)
--- NOTE | 2023-05-31 09:16 | RAD REPORT ---
EXAM DESCRIPTION: Aby Single View05/31/2023 9:02 am CLINICAL HISTORY: Preop COMPARISON: none FINDINGS: The lungs appear clear of acute infiltrate. The heart is moderately to markedly enlarged Pacemaker leads present IMPRESSION: No acute abnormalities displayed
[2023-05-31 10:04] VITALS: BP 139/69; TEMP 99.7; O2SAT 98
== END ==
LOC: OR 07:25
PROVIDERS: ATTEND Orthopaedic Surgery
DX: S52.572A Other intraarticular fracture of lower end of left radius, initial encounter for closed fracture (principal); Z53.09 Procedure and treatment not carried out because of other contraindication
CPT/HCPCS: 85025; 80048; 36415; 71045; J7030; J0690